=== PATIENT | female | born 1955 | race Caucasian/White ===

== ENCOUNTER → 2018-07-19 | Outpatient (CLI) | payer MEDICARE, OTHER ==
--- NOTE | 2018-07-19 12:42 | US ---
EXAMINATION TYPE: US venous doppler duplex LE LT DATE OF EXAM: 07/19/2018 9:20 AM COMPARISON: LOWER EXTREMITY VENOUS INSUFFICIENCY SIDE PERFORMED: Left TECHNIQUE: Color Doppler and grayscale sonographic images of the left lower extremity were obtained. 1) Color flow is present and patency is documented in the following vessels. No DVT or SVT is noted . EIV Common Femoral Vein Deep Femoral Vein Femoral Vein Popliteal Vein Proximal Calf Veins Greater Saph Vein Upper Small Saph Vein 2) There is venous reflux noted at the following venous levels: None IMPRESSION: No sonographic evidence for venous insufficiency or DVT within the visualized left lower extremity.
== END ==
LOC: RADUSWWP 08:50
PROVIDERS: ATTEND Internal Medicine Infectious Disease
DX: M79.604 Pain in right leg (principal); M79.605 Pain in left leg
CPT/HCPCS: 93923

== ENCOUNTER → 2018-07-19 | Outpatient (CLI) | payer MEDICARE, OTHER ==
--- NOTE | 2018-07-28 09:52 | P.ARTDOP ---
Arterial Doppler LOWER EXTREMITY ARTERIAL DOPPLER: DATE OF SERVICE: 07/19/2018 Reason for study: Nonhealing left great toe ulcer. Doppler waveforms: Multiphasic bilaterally throughout. Pulse volume recording: Normal configuration including digital. Pressure gradients: Only at the foot level. Ankle-brachial indices: Greater than 1 bilaterally. Toe pressures: 46 on the right, not registered on the left Impression: Combining the ABIs and excellent toe plethysmography waveforms feel this is a normal study. Clinical correlation recommended..
== END | disposition home or self-care (01) ==
LOC: RADUSWWP 08:46
PROVIDERS: ATTEND Internal Medicine Infectious Disease
DX: Z53.9 Procedure and treatment not carried out, unspecified reason (principal)

== ENCOUNTER → 2023-11-06 | Outpatient (CLI) | payer MEDICARE ==
--- NOTE | 2023-11-06 09:53 | XR ---
EXAMINATION TYPE: XR chest 2V DATE OF EXAM: 11/06/2023 9:25 AM CLINICAL INDICATION:Female, 67 years old with history of R053 CHRONIC COUGH; COMPARISON: None TECHNIQUE: XR chest 2V Frontal and lateral views of the chest. FINDINGS: Lungs/Pleura: Prominent interstitial lung markings are seen scattered throughout the lungs with yamileth ening of the diaphragm and increased lucency of the lung apices. No evidence of focal consolidation, pneumothorax or pleural effusion. Pulmonary vascularity: Unremarkable. Heart/mediastinum: Cardiomediastinal silhouette is unremarkable. Atherosclerotic calcifications are seen in the aorta. Musculoskeletal: No acute osseous pathology. Fixation hardware in the lower cervical spine appears in tact. Other findings: None IMPRESSION: 1. No acute cardiopulmonary disease process. 2. COPD changes.
== END | disposition home or self-care (01) ==
LOC: RADXRYALE 09:14
PROVIDERS: ATTEND Family Medicine
DX: J44.9 Chronic obstructive pulmonary disease, unspecified (principal)
CPT/HCPCS: 71046

== ENCOUNTER → 2023-11-11 | Outpatient (CLI) | payer MEDICARE ==
[2023-11-11 13:01] LABS: African American GFR (CKD) >90 (>60 ml/min/1.73 sqM); Blood Urea Nitrogen 8 mg/dL (7-17); Non-African American GFR(CKD) >90 (>60 ml/min/1.73 sqM)
--- NOTE | 2023-11-11 14:37 | CT ---
EXAMINATION TYPE: CT chest w con DATE OF EXAM: 11/11/2023 COMPARISON: Chest x-ray 11/06/2023 HISTORY: Cough, abnormal finding of lung CT DLP: 3661 mGycm, Automated exposure control for dose reduction was used. CONTRAST: Performed injected with 100 ml mL of Isovue 300. TECHNIQUE: Axial images were obtained at 5 mm thick sections. Reconstructed images are reviewed on [employer] computer in the coronal plane. FINDINGS: Portion of the thyroid visualized is normal. There is a masslike density in the superior left mediastinal border measuring 7.5 x 3.2 cm. This exte nds from the left hilum to nearly the apex. Small left pleural effusion is present. Small area of pneumonitis is anterior to the pleural effusion near the left lung base. Image 46. Small area of increased densities in the anterior right upper risa g field measuring 0.8 cm. Series 3 image 11. No enlarged mediastinal or hilar adenopathy is evident. The ascending aorta diameter at the level o f the main pulmonary artery is 2.8 cm. The main pulmonary artery diameter at the bifurcation is 2.2 cm. Minimal pericardial effusion is present. Limited CT sections are obtained through the upper abdomen. There is mild fatty infiltration of the l iver. IMPRESSION: 1. Left mediastinal border mass suspicious for neoplasm. PET CT recommended for additional evaluation . 2. There are couple of areas of small pneumonitis type changes in the right lung and left lower lung field. Infectious etiology and neoplasm are not excluded at these locations. Follow-up is recommended . 3. Moderate fatty liver. A Yellow level critical message alert has been initiated for Prosper Lamar DO via the [employer] Critical Results System on 11/11/2023 2:35 PM. This message alert has been sent to Prosper griggs DO via the preferences provided by the clinician for the receipt of Radiology Critical Findings. Message ID [id number].
== END | disposition home or self-care (01) ==
LOC: RADCTMAIN 12:22
PROVIDERS: ATTEND Family Medicine
DX: K76.0 Fatty (change of) liver, not elsewhere classified (principal)
CPT/HCPCS: 82565; 84520; 71260; 36415; Q9967

== ENCOUNTER 2023-12-17 10:08 | Day surgery (SDC) | payer MEDICARE ==
[~2023-12-17 10:08] MED LIST: HYDROmorphone 0.5 MG/0.5 ML SYRINGE IVP PRN; LACTATED RINGERS 1,000 ML IV SCH
[2023-12-17] MEDS: LACTATED RINGERS 1,000 ML IV SCH (10:43)
[2023-12-17] MEDS: DEXAMETHASONE SOD PHOSPHATE 4 MG/ML 1 ML VIAL IV ONE (10:58)
[2023-12-17] MEDS: ONDANSETRON 4 MG/2 ML VIAL IVP ONE (10:59)
[2023-12-17] MEDS ORDERED: PHENYLEPHRINE 10 MG/ML VIAL ONE (11:01)
[2023-12-17] MEDS ORDERED: MIDAZOLAM 2 MG/2 ML VIAL ONE (11:01)
[2023-12-17] MEDS ORDERED: fentaNYL (PF) 50 MCG/ML 2 ML AMP ONE (11:01)
[2023-12-17] MEDS ORDERED: PROPOFOL 10 MG/ML 20 ML VIAL IV ONE (11:01)
[2023-12-17] MEDS ORDERED: NEOSTIGMINE 1 MG/ML 10 ML VIAL ONE (11:01)
[2023-12-17] MEDS ORDERED: LIDOCAINE 1% INJ 10MG/ML (20 ML MDV) ONE (11:01)
--- NOTE | 2023-12-17 11:17 | CT ---
EXAMINATION TYPE: CT chest wo con DATE OF EXAM: 12/17/2023 COMPARISON: PET CT scan 12/10/2023. HISTORY: Prebronchial navigation. CT DLP: 190.3 mGycm. Automated Exposure Control for Dose Reduction was Utilized. TECHNIQUE: CT scan of the thorax is performed without IV contrast. FINDINGS: LUNGS: There is a moderate left pleural effusion. Small pericardial effusion. Large left upper lobe m ass and abutting the mediastinum occluding the left upper lobe bronchus and likely extending along th e left lower lobe bronchus is unchanged. This is compatible with malignancy as was seen on the PET/CT examination for comparison. Scattered interstitial changes otherwise seen through out the lungs bila terally likely chronic. Some inflammatory infectious process may also be a consideration. There is so me soft tissue density seen within the left suprahilar region in the left upper lobe which also could represent malignancy and appears slightly hypermetabolic on the PET/CT examination. MEDIASTINUM: Several prominent mediastinal lymph nodes are suspected, however not well evaluated with out contrast. Slight hypermetabolic activity is seen within the hilar regions and subcarinal region.. OTHER: Masses within the liver compatible with metastatic disease and not well evaluated on this nonc ontrast examination. IMPRESSION: 1. Large left upper lobe mass occluding the left upper lobe bronchus compatible with malignancy as de scribed above. 2. Metastatic liver disease. 3. Additional findings as above. Follow-up recommendations for incidental pulmonary nodules are per [facility] or [employer].
--- NOTE | 2023-12-17 12:20 | FL ---
EXAMINATION TYPE: FL bronchoscopy DATE OF EXAM: 12/17/2023 COMPARISON: NONE HISTORY: ABN LUNG FINDINGS BRONCH ION TECHNIQUE: Fluoroscopy. FINDINGS: 2 MIN 13 SEC FL 5.2197 dap dose IMPRESSION: As Above.
--- NOTE | 2023-12-17 12:37 | P.PCN ---
Date of Procedure: 12/17/23 Operative Findings: Preoperative Diagnosis: Left upper lobe mass Right upper lobe pulmonary nodule Mediastinal lymphadenopathy Postoperative Diagnosis: Left upper lobe Mass along with significant narrowing of the apical segment of the left upper lobe. Right upper lobe pulmonary nodule Mediastinal lymphadenopathy, involving the subcarinal and left hilar Procedure(s) Performed: Flexible bronchoscopy Robotic-assisted bronchoscopy and addition to radial ultrasound evaluation of the pulmonary left upper lobe mass and a right upper lobe pulmonary nodule Robotic-assisted transbronchial biopsies, transbronchial brushing of left upper lobe mass in addition to a bronchioloalveolar lavage Robotic-assisted transbronchial biopsies, transbronchial brushing of right upper lobe mass in addition to a bronchioloalveolar lavage EBUS/endobronchial ultrasound EBUS guided biopsies of station 7 and station 10 L lymph nodes. Anesthesia: DAJAA Surgeon: Link Mcgregor Estimated Blood Loss (ml): 0 Pathology: other Condition: stable Disposition: same day Operative Findings: A physical exam was performed. Informed consent was obtained from the patient after explaining all the risks (pneumothorax, life threatening bleeding, infection and adverse effects due to medications), benefits and alternatives to the procedure which the patient appeared to understand and so stated. The patient was connected to the monitoring devices. General anesthesia was induced and the patient was intubated by anesthesia. A final timeout was performed and the procedure confirmed by the attending staff bronchoscopist. The bronchoscope was inserted and the airway examined. The trachea was within normal limits. Clara was sharp. Examination of the right setting of the right upper lobe bronchus, bronchus intermedius, right middle lobe and right lower lobe bronchus and the various 10 segments on the right and one of the obstruction within normal limits. Examination of the left side showed a normal proximal left mainstem bronchus. The distal left mainstem bronchus had inflammatory mucosa and this got progressively worse as the left mainstem bronchus divided into the left upper lobe and left lobe bronchus. The mucosa at the location was quite inflamed and erythematous and swollen. There was narrowing of the left upper lobe bronchus. Lingular segment was identified and it was patent. The apical posterior segment was completely narrowed continue segment was significantly narrowed. There was evidence of extrinsic compression from the some endobronchial involvement in the left upper lobe apical posterior segment. The flexible bronchoscope was removed and the robotic bronchoscope was inserted. Registration was completed. I next guided the robotic bronchoscope using the navigation system into the left upper lobe apico- posterior segment. Once in proper position, the bronchoscope was frozen. The radial EBUS probe was placed through the bronchoscope and confirmed abnormal u/s images vs normal lung. Bone removed U/S evaluation was then used to reconfirm location. Forceps were next introduced through working channel and extended the appropriate distance and 3 transbronchial biopsies were performed using fluoroscopic guidance. The u/s probe was then reinserted to confirm location. When confirmed this process was repeated for a total of 6 transbronchial biopsies. After reassessment with EBUS, a brush was placed through the extendable working channel for 1 pass with fluoroscopic guidance. U/S evaluation was then used to confirm location. 40ml of saline was then instilled into the area of the lesion. The robotic bron choscope was removed and the airway inspected with a flexible bronchoscope and 5 ml of effluent from the BAL was collected. The aspirate was bloody and ultimately declotted and based on that, the sample was discarded. The robotic bronchoscope was the right upper lobe apical segment. Once in proper position, the bronchoscope was frozen. The radial EBUS probe was placed through the bronchoscope and confirmed abnormal u/s images vs normal lung. U/S evaluation was then used to reconfirm location. Forceps were next introduced through working channel and extended the appropriate distance and 3 transbronchial biopsies were performed using fluoroscopic guidance. The u/s probe was then reinserted to confirm location. When confirmed this process was repeated for a total of 6-8 transbronchial biopsies. After reassessment with EBUS, a brush was placed through the extendable working channel for 1 pass with fluoroscopic guidance. U/S evaluation was then used to confirm location. 40ml of saline was then instilled into the area of the lesion. The robotic bronchoscope was removed and the airway inspected with a flexible bronchoscope and 10 ml of effluent from the BAL was collected. The aspirate was bloody and ultimately declotted and based on that, the sample was discarded. Fluoroscopic check for pneumothorax was negative upon completion of the procedure. There was 0 ml blood loss with the procedure. Subsequent to that, the endobronchial ultrasound was inserted and the mediastinal lymph node evaluation was done. A large subcarinal station 7 lymph node was identified measuring approximately 15 x 11 mm in size. Another 1.3 x11 mm of station 10 L lymph node was also identified. 4 lymph nodes were also identified in the left paratracheal lymph node station 4R measuring around 7 to 8 mm in size. Using a 22 guage V[place] , transbronchial needle aspirates of the subcarinal and station 10 L lymph node was done without any complications. Total of 3 passes were obtained from each station. FINDINGS: 1.The airways appeared normal 2 Successful navigation, ultrasonographic identification, and biopsies of right lower lobe mass in the left upper lobe mass 3.The the radial ultrasound view was Eccentric 3 successful transbronchial needle aspirate of subcarinal and station 10 L lymph node RECOMMENDATIONS: Await pathology and cytology results The referring physician will be alerted to the results when available. The patient was advised to follow up with the referring physician with the biopsy results
[2023-12-17] MEDS: ALBUTEROL NEBULIZED 2.5 MG/3 ML INHALATION ONE (12:39)
[2023-12-17 12:53] VITALS: TEMP 97.2
--- NOTE | 2023-12-17 13:15 | XR ---
EXAMINATION TYPE: XR chest 1V DATE OF EXAM: 12/17/2023 HISTORY: Status post biopsy COMPARISON: None. TECHNIQUE: Single view of the chest is submitted. FINDINGS: Demonstrated are scattered senescent parenchymal change. Left upper lobe mass density. Left basilar pleural effusion with atelectasis. Underlying mass is not excluded. No evidence of pneumothorax status post biopsy. The heart is stable. Hilar and mediastinal structures are within normal limits. Degenerative changes are seen of the dorsal spine. IMPRESSION: 1. Left upper lobe mass density. Left basilar pleural effusion with atelectasis. Underlying mass is not excluded. No evidence of pneumothorax status post biopsy.
[2023-12-17] MEDS: NITROGLYCERIN SL TABS 0.4 MG TAB SUBLINGUAL ONE (14:15)
[2023-12-17 15:14] VITALS: BP 107/64; PULSE 109; RESP 20
== END 2023-12-17 15:31 | disposition home or self-care (01) ==
LOC: ORWHC2ENDO 10:08
PROVIDERS: ATTEND Internal Medicine Critical Care Medicine
DX: C34.12 Malignant neoplasm of upper lobe, left bronchus or lung (principal); J90 Pleural effusion, not elsewhere classified; C78.7 Secondary malignant neoplasm of liver and intrahepatic bile duct; Z98.890 Other specified postprocedural states
CPT/HCPCS: 71045; 71250; 31628; 31623; 31624; 31652; J2250; J1100; J2710; J2405; J2001; J3010; J2704; J2371; S2900; 88305; 88341; 88342

== ENCOUNTER → 2024-01-06 | Outpatient (CLI) | payer MEDICARE ==
--- NOTE | 2024-01-10 16:32 | MR ---
EXAMINATION TYPE: MR brain wo/w con DATE OF EXAM: 01/06/2024 COMPARISON: None HISTORY: Lung cancer CONTRAST: Performed utilizing 5 mL intravenous Gadavist gadolinium contrast. TECHNIQUE: Multiplanar, multiecho imaging on a 3.0 Nicole magnet is performed through the brain. Stud y is performed within 24 hours of arrival to the hospital. The craniovertebral junction is normal. The pituitary is normal. Optic chiasm is visualized is norm al. Diffusion-weighted imaging is performed. No abnormal hyperintensity is present to suggest an acute i ntracranial infarct or acute ischemic change. There is a punctate hyperintensity in the right frontal lobe subcortical white matter, series 601 taran ge 39. Couple of punctate hyperintensities are in the left frontal lobe subcortical white matter, ser ies 601 images 43-44 Ventricles and sulci are appropriate for the patient age. Following contrast no suspicious enhancement is evident. IMPRESSION: 1. Mild scattered punctate white matter changes are nonspecific but can be related to microvascular i schemic change. Differential diagnosis would include migraine headaches and vasculitis
== END | disposition home or self-care (01) ==
LOC: RADMRIMAIN 21:45
PROVIDERS: ATTEND Internal Medicine Hematology & Oncology
DX: C34.82 Malignant neoplasm of overlapping sites of left bronchus and lung (principal); I67.82 Cerebral ischemia; R90.82 White matter disease, unspecified
CPT/HCPCS: 70553; A9585

== ENCOUNTER 2024-03-09 16:48 | Inpatient (IN) | payer MEDICARE ==
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
[2024-03-09] MEDS: SODIUM CHLORIDE 0.9% 1,000 ML IV STA (17:46)
[2024-03-09 17:53] LABS: Basophils # (A) 0.1 k/uL (0-0.2); Basophils % (A) 1 %; Eosinophils # (A) 0.1 k/uL (0-0.7); Eosinophils % (A) 1 %; HCT 43.4 % (34.0-46.0); HGB 14.5 gm/dL (11.4-16.0); Lymphocytes # (A) 1.6 k/uL (1.0-4.8); Lymphocytes % (A) 22 %; MCH 29.7 pg (25.0-35.0); MCHC 33.5 g/dL (31.0-37.0); MCV 88.7 fL (80.0-100.0); Mean Platelet Volume 7.7; Monocytes # (A) 0.1 k/uL (0-1.0); Monocytes % (A) 1 %; Neutrophils # (A) 5.2 k/uL (1.3-7.7); Neutrophils % (A) 74 %; Platelet Count 195 k/uL (150-450); RBC 4.89 m/uL (3.80-5.40); RDW 13.4 % (11.5-15.5)
[2024-03-09 18:11] LABS: ALT 19 U/L (4-34); AST 26 U/L (14-36); African American GFR (CKD) >90 (>60 ml/min/1.73 sqM); Albumin 3.7 g/dL (3.5-5.0); Alkaline Phosphatase 68 U/L (38-126); Anion Gap 6 mmol/L; Blood Urea Nitrogen 18 mg/dL (7-17); Calcium 8.9 mg/dL (8.4-10.2); Carbon Dioxide 25 mmol/L (22-30); Chloride 103 mmol/L (98-107); Glucose 89 mg/dL (74-99); Magnesium 1.7 mg/dL (1.6-2.3); Non-African American GFR(CKD) >90 (>60 ml/min/1.73 sqM); Phosphorus 3.3 mg/dL (2.5-4.5); Potassium 4.2 mmol/L (3.5-5.1); Sodium 134 mmol/L (137-145); Total Bilirubin 0.8 mg/dL (0.2-1.3); Total Protein 6.5 g/dL (6.3-8.2)
[2024-03-09 18:13] LABS: Prothrombin Time 10.5 sec (10.0-12.5)
[2024-03-09 18:14] LABS: Partial Thromboplastin Time 21.6 sec (22.0-30.0)
[2024-03-09 18:20] LABS: NT-Pro-B-Type Natriuretic Pept 43 pg/mL
--- NOTE | 2024-03-09 20:29 | CT ---
EXAMINATION TYPE: CT angio chest CT DLP: 238.2 mGycm, Automated exposure control for dose reduction was used. DATE OF EXAM: 03/09/2024 7:02 PM COMPARISON: CT chest without 12/17/2023. Reference PET/CT 12/10/2023 CLINICAL INDICATION:Female, 68 years old with history of sob; SOB, high dimer. Lung Ca. TECHNIQUE/CONTRAST: CTA scan of the thorax is performed with IV Contrast, patient injected with 80 mL of Isovue 370, MIP images are created and reviewed these are created on a separate workstation.. FINDINGS: There is adequate contrast bolus and timing. PULMONARY ARTERIES: Pulmonary trunk, right main pulmonary artery and its distal branches enhance norm ally without evidence of filling defect to indicate embolus. The pulmonary trunk is not enlarged, gail suring about 2 cm diameter. The left upper lobe artery and segmental branches in the left hilum appea r significantly extrinsically narrowed by the left hilar/suprahilar region mass. Some areas of small peripheral conclusions are suggested. No intrinsic defects are seen to suggest embolus. Left lower lobe artery is patent with mild narrowing of branch vessels. No intrinsic defects are seen to suggest embolus. The left superior pulmonary vein appears quite narrowed in the left inferior hil ar region as well. AORTA : Normal course and caliber, with mild to moderate mixed atherosclerotic disease throughout the thoracic aorta noted. No gross evidence of thoracic aneurysm or dissection. The branch vessels from the arch show mild disease without critical stenosis seen. Ascending aorta is 2.6 CM, descending is 2 CM. HEART: Normal heart size. Small pericardial effusion, similar to previous. LOWER NECK: No significant findings. Thyroid appears grossly stable. MEDIASTINUM: Slightly increased bulk of confluent mediastinal soft tissue densities, without definite measurable lymph nodes, likely represents metastases.. Contiguous soft tissue densities within the l eft hilar and suprahilar region also appear mildly increased from prior. SOFT TISSUES/AXILLA: Unremarkable chest wall soft tissues. No axillary adenopathy. LUNGS/ PLEURA: Relatively increased small to moderate left pleural effusion with underlying rind of s oft tissue tissue density surrounding the majority of the left lung, as well as increased interstitia l and alveolar opacities in the aerated left lung. On the right, there is redemonstration of extensiv e patchy reticulonodular and ground glass opacities through the lung, overall stable to slightly incr eased from before. Some peribronchial vascular soft tissue thickening/nodularity in the right upper l obe region around image 45 appears stable to slightly increased from prior. There remains no sizable pleural effusion on the right, or pneumothorax bilaterally. Mildly thickened appearance of the right hilar soft tissue is again noted without measurable mass. AIRWAY: Trachea and right-sided bronchi remain patent. Left proximal mainstem bronchus is patent, but there is significant relatively increased luminal narrowing versus the prior exam, with complete occ lusion of the left upper lobe bronchus proximally and significant narrowing of the proximal left lowe r lobe bronchus seen. MUSCULOSKELETAL: Mild/moderate diffuse degenerative changes throughout the thoracic spine, partially seen anterior and posterior fusion hardware in the cervical spine, partially seen posterior fusion daly rdware in the lower lumbar region. No definitive acute bony abnormality or destructive lesion. UPPER ABDOMEN: Visualized upper abdomen shows diffuse thickening of the adrenals without evidence of focal mass. Moderate mixed atherosclerotic disease of the aorta with mild narrowing of the mesenteric and renal arterial branches. Irregular mostly soft plaque is seen in the aorta below the level of th e renal arteries without evidence of dissection. Splenic granulomas. The contrast phase is suboptimal, however there appears to be slightly increased size and prominence of several vague hypodense hepatic lesions, highly concerning for metastases. Color appears mildly pr ominent. IMPRESSION: 1. No evidence of pulmonary embolism. 2. Left upper lobe artery and segmental branches in the left hilum appear significantly extrinsicall y narrowed by the left hilar/suprahilar region mass. Some areas of small peripheral conclusions are s uggested. No intrinsic defects are seen to suggest embolus. 3. Left lower lobe artery is patent with mild narrowing of branch vessels. No intrinsic defects are seen to suggest embolus. The left superior pulmonary vein appears quite narrowed in the left inferior hilar region as well. 4. Thoracic aorta is normal in course and caliber, with mild to moderate mixed atherosclerotic disea se throughout. No gross evidence of thoracic aortic aneurysm or dissection. 5. Normal heart size. Small pericardial effusion, similar to previous. Coronary artery calcification s. 6. Slightly increased bulk of confluent mediastinal soft tissue densities, without definite measurab le lymph nodes, likely represents worsening metastatic disease. 7. Contiguous soft tissue densities within the left hilar and suprahilar region also appear mildly i ncreased from prior, concerning for progression of malignancy. 8. Relatively increased small to moderate left pleural effusion with underlying rind of soft tissue tissue density surrounding the majority of the left lung, as well as increased interstitial and alveo lar opacities in the aerated left lung. Findings likely relate to progression of malignancy, with sup erimposed infection or edema possibilities. 9. Right lung again shows extensive patchy reticulonodular and ground glass opacities throughout, ov erall stable to slightly increased from before. Some peribronchial vascular soft tissue thickening/no dularity in the right upper lobe region appears stable to slightly increased from prior. Findings sug gest progression of malignancy/metastatic disease, with superimposed infection/inflammation possible. There remains no sizable pleural effusion on the right, or pneumothorax bilaterally. 10. Mildly thickened appearance of the right hilar soft tissues is again noted without measurable ma ss, nonspecific. 11. Trachea and right-sided bronchi remain patent. Left proximal mainstem bronchus is patent, but th ere is significant relatively increased luminal narrowing versus the prior exam, with complete occlus ion of the left upper lobe bronchus proximally and significant narrowing of the proximal left lower l obe bronchus. 12. Diffuse thickening of the adrenals without evidence of focal mass. Continued follow-up advised 13. The contrast phase is suboptimal, however there appears to be slightly increased size and promin ence of several vague hypodense hepatic lesions, highly concerning for progressive hepatic metastases .
[2024-03-09] MEDS: IPRATROPIUM-ALBUTEROL 3 ML NEB INHALATION STA ×2 (20:39→22:04)
[2024-03-09] MEDS ORDERED: NALOXONE 0.4 MG/ML 1 ML VIAL IV PRN (20:54)
[2024-03-09] MEDS ORDERED: NALOXONE 0.4 MG/ML 1 ML VIAL IVP PRN (20:54)
[2024-03-09] MEDS ORDERED: ONDANSETRON 4 MG/2 ML VIAL IVP PRN (20:54)
[2024-03-09] MEDS: SODIUM CHLORIDE 0.9% 1,000 ML IV SCH (21:09)
[2024-03-09] MEDS: methylPREDNISolone SOD SUCCI 125 MG/2 ML VIAL IV STA (21:10)
[2024-03-09] MEDS: MORPHINE SULFATE 4 MG/ML SYRINGE IV PRN (22:43)
[2024-03-10] MEDS ORDERED: ALBUTEROL NEBULIZED 2.5 MG/3 ML INHALATION SCH
[2024-03-10] MEDS: methylPREDNISolone SOD SUCCI 125 MG/2 ML VIAL IV SCH (01:05)
[2024-03-10] MEDS: MELATONIN 5 MG TABLET PO SCH (01:05)
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
[2024-03-10] MEDS: MORPHINE SULFATE 4 MG/ML SYRINGE IV PRN (01:27)
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
[2024-03-10 06:43] LABS: Basophils % (A) 0 %; Eosinophils % (A) 0 %; Lymphocytes # (A) 0.5 k/uL (1.0-4.8); Lymphocytes % (A) 13 %; MCHC 31.8 g/dL (31.0-37.0); MCV 91.1 fL (80.0-100.0); Mean Platelet Volume 7.2; Monocytes # (A) 0.1 k/uL (0-1.0); Monocytes % (A) 1 %; Neutrophils # (A) 3.3 k/uL (1.3-7.7); Neutrophils % (A) 85 %; Platelet Count 120 k/uL (150-450); RBC 4.83 m/uL (3.80-5.40); RDW 13.6 % (11.5-15.5); WBC 3.9 k/uL (3.8-10.6)
[2024-03-10 06:55] LABS: ALT 20 U/L (4-34); AST 25 U/L (14-36); African American GFR (CKD) >90 (>60 ml/min/1.73 sqM); Albumin 3.8 g/dL (3.5-5.0); Alkaline Phosphatase 78 U/L (38-126); Anion Gap 10 mmol/L; Blood Urea Nitrogen 14 mg/dL (7-17); Calcium 8.9 mg/dL (8.4-10.2); Carbon Dioxide 22 mmol/L (22-30); Chloride 102 mmol/L (98-107); Glucose 162 mg/dL (74-99); Lipase 131 U/L (23-300); Magnesium 1.7 mg/dL (1.6-2.3); Non-African American GFR(CKD) >90 (>60 ml/min/1.73 sqM); Phosphorus 4.1 mg/dL (2.5-4.5); Potassium 4.4 mmol/L (3.5-5.1); Sodium 134 mmol/L (137-145); Total Bilirubin 0.6 mg/dL (0.2-1.3); Total Protein 6.6 g/dL (6.3-8.2)
[2024-03-10] MEDS ORDERED: SYMBICORT 80-4.5 MCG INHALER INHALATION SCH (08:00)
[2024-03-10] MEDS: HEPARIN SODIUM,PORCINE 5,000 UNIT/ML 1 ML VIAL SQ SCH (09:13)
[2024-03-10] MEDS: IPRATROPIUM-ALBUTEROL 3 ML NEB INHALATION SCH (09:19)
[2024-03-10] MEDS: SYMBICORT 160-4.5 MCG INHALER INHALATION SCH (09:19)
--- NOTE | 2024-03-10 09:51 | XR ---
EXAMINATION TYPE: XR chest 1V portable DATE OF EXAM: 03/10/2024 Comparison: 12/17/2023 Clinical History: 68-year-old female Post left thoracentesis Findings: Near complete white out of the left hemithorax persists with some faintly aerated left mid and lower lung noted. Interstitial densities right lung are unchanged. Partially visualized ACDF and posterior cervical fusion hardware. The left heart margin is entirely obscured by adjacent pleural parenchymal opacity. Chronic appearing interstitial changes on the right. Partially visualized posterior lumbar f usion hardware. Impression: 1. Extensive pleural-parenchymal opacities remain throughout the left lung causing near complete whit eout. Faintly aerated left upper and midlung noted. No appreciable pneumothorax. 2. Chronic appearing interstitial changes on the right.
[2024-03-10 13:09] VITALS: BMI 18.2
[2024-03-10] MEDS ORDERED: HYDROcodone/APAP 10-325MG 1 EACH TAB PO PRN (13:25)
--- NOTE | 2024-03-10 13:37 | P.PN ---
Subjective Progress Note Date: 03/10/24 Hospital course Patient is a 68-year-old female with a past medical history of metastatic lung cancer who went to go visit her doctor and had a severe attack of coughing and became short of breath. In the office she was found to be hypoxic so she was told to go to the ED. Patient uses home oxygen but does not have a portable oxygen so she would take a hand-held battery-operated fan with her when she leaves her house to help her with the breathing. Patient also complaining of pain in her neck, chest and rib on the left side. Patient states that she is on [place] 10 mg every 4 hours as needed and this is not helping with her pain. Patient was last chemotherapy was 1 week ago. Patient states that she has been feeling weak and dizzy especially when she stands up she gets short of breath. She states that she quit smoking when she was diagnosed with lung cancer in October 2023. In the ED patient had a CTA chest that showed progression of her lung cancer and also moderate size left pleural effusion. Patient was admitted to the medicine service. Patient was seen by pulmonology and had thoracentesis with 700 cc removal of the left pleural effusion. Patient reported improvement in her breathing after the procedure. Patient started on fentanyl 25 mcg every 72 hours for her pain. Patient seen today. She is complaining that her pain is uncontrolled. I told the patient was started on a fentanyl patch. Physical exam General examination - Alert and Oriented 3 in NAD Heart - + S1S2 no murmurs Lungs -crackles in the left lung, no wheezing Abdomen soft NT ND +ve BS Extremities - No edema LENS GRINDER - Moving all 4 extremities spontaneously Psych - Calm and cooperative Assessment and plan Acute on chronic hypoxic respiratory failure Moderate left-sided pleural effusion status postthoracentesis on 03/10/2024 COPD exacerbation Patient is on 5 L oxygen at home. Currently satting well on her home O2. I reviewed the chest x-ray image after the thoracentesis that showed left-sided whiteout. I discussed this with the cat swamper who said that this is likely from fluid. Patient is feeling better after thoracentesis so no further treatment at this time. Will continue with IV Solu-Medrol 60 mg every 6 hours Continue DuoNeb as needed Ice discussed with the bilingual case manager who is arranging for a portable oxygen tank. I signed the prescription. Procalcitonin is 0.17 which is only minimally elevated so doubt pneumonia especially since patient does not have leukocytosis or fever. WBC this morning is 3.9. D-dimer is elevated 1.88. I reviewed CTA chest that is negative for pulmonary embolism Acute on chronic chest pain secondary to malignancy Patient on morphine 4 mg IV every 3 hours as needed for pain control Patient also started on her home dose [place] 10 mg every 4 hours as needed Patient's pain is still uncontrolled I started the patient on fentanyl patch 25 mcg daily Oncology consult Lung cancer with metastasis CTA chest showing progression of her lung cancer Oncology consult DVT prophylaxis: Subcu heparin Objective - Vital Signs Vital signs: Vital Signs Temp 97.5 F L 03/10/24 07:00 Pulse 89 03/10/24 12:10 Resp 18 03/10/24 08:00 BP 141/79 03/10/24 07:00 Pulse Ox 97 03/10/24 09:23 FiO2 Intake & Output 03/09/24 03/10/24 03/10/24 18:59 06:59 18:59 Intake Total 118 Balance 118 Weight 46.72 kg 46.72 kg 46.72 kg Intake: Oral 118 Other: Voiding Method Toilet # Voids 1 - Labs CBC & Chem 7: 03/10/24 06:06 03/10/24 06:06 Labs: Abnormal Lab Results - Last 24 Hours (Table) 03/09/24 03/09/24 03/10/24 Range/Units 17:19 17:19 06:06 Plt Count 120 L (150-450) k/uL Lymphocytes # 0.5 L (1.0-4.8) k/uL APTT 21.6 L (22.0-30.0) sec D-Dimer 1.88 H (<0.60) mg/L FEU Sodium 134 L (137-145) mmol/L BUN 18 H (7-17) mg/dL Creatinine 0.41 L (0.52-1.04) mg/dL Glucose (74-99) mg/dL Procalcitonin (0.02-0.09) ng/mL 03/10/24 03/10/24 Range/Units 06:06 06:06 Plt Count (150-450) k/uL Lymphocytes # (1.0-4.8) k/uL APTT (22.0-30.0) sec D-Dimer (<0.60) mg/L FEU Sodium 134 L (137-145) mmol/L BUN (7-17) mg/dL Creatinine 0.39 L (0.52-1.04) mg/dL Glucose 162 H (74-99) mg/dL Procalcitonin 0.17 H (0.02-0.09) ng/mL
--- NOTE | 2024-03-10 13:40 | OP ---
OPERATIVE REPORT DATE OF SERVICE : PROCEDURE PERFORMED: Left-sided thoracentesis. PREOPERATIVE DIAGNOSIS: Pleural effusion associated with lung CA. POSTOPERATIVE DIAGNOSIS: Pleural effusion associated with lung CA. ANESTHESIA USED: 2 mL of 1% lidocaine. DESCRIPTION OF PROCEDURE: The area of the fluid was earlier localized by ultrasound, and it correlated to the 8th intercostal space and tip of the scapula. The patient was placed in the sitting upright position, the area below the left scapula was prepared in a sterile fashion, drapes were applied. Then, at the site of the marking, the area was locally anesthetized. Then a small tiny incision was made and a standard thoracentesis catheter and needle were used advanced into the pleural space and the fluid was obtained. Then, the catheter was advanced over the needle and the needle was pulled out of the pleural space. Freely flowing fluid was removed, roughly 750 cc of clear fluid was removed from the pleural space, and the patient started having significant cough during the procedure, hence no more fluid was drained and a total of 750 cc were drained. The fluid was sent for different diagnostic studies, the procedure was well tolerated, no complications noted postoperatively and no evidence of pneumothorax. MMODL / IJN: [id number] /
--- NOTE | 2024-03-10 16:31 | US ---
EXAMINATION TYPE: US chest DATE OF EXAM: 03/10/2024 COMPARISON: CT 03/09/2024 XR 01/06/2024 CLINICAL INDICATION: Female, 68 years old shortness of breath with history of Markings for thoracente sis by pulmonary staff; JOSE RAFAEL TECHNIQUE: Targeted ultrasound of the posterior lower bilateral hemithoraces EXAM MEASUREMENTS: Right Pleural Effusion pocket size: 0 cm Right skin surface to fluid distance: 0 cm Left Pleural Effusion pocket size: 4.9 cm Left skin surface to fluid distance: 2.5 cm Left side marked for possible thoracentesis outside the dept. Pulmonologists are able to review the images in the patient?s EMR. IMPRESSIONS: Moderate effusion on the left.
[2024-03-10] MEDS: BENZONATATE 100 MG CAP PO PRN (21:16)
[2024-03-10 21:37] LABS: Appearance,BF Clear (Clear)
[2024-03-10 22:46] LABS: Glucose, BF Source Pleural Fluid; Glucose, Body Fluid 162 mg/dL; LDH, Body Fluid Source Pleural Fluid; T. Protein, Body Fluid Source Pleural Fluid; Total Protein, Body Fluid >3600 mg/dL
[2024-03-11 07:59] VITALS: BP 136/71; RESP 20; TEMP 97.9
--- NOTE | 2024-03-11 08:56 | XR ---
EXAMINATION TYPE: XR chest 1V portable DATE OF EXAM: 03/11/2024 COMPARISON: 03/10/2024 INDICATION: Pleural effusion TECHNIQUE: Single frontal view of the chest is obtained. FINDINGS: The heart size is normal. The pulmonary vasculature is somewhat prominent. Moderate pleural effusion is present. There is opacity over the left lung with mild increased lung ma rkings on the right lung base. Correlate for atelectasis, pneumonia, and pulmonary edema. IMPRESSION: 1. Diffuse left lung opacity with mild increased lung markings right lung base. Moderate left pleural effusion
--- NOTE | 2024-03-11 09:54 | P.DS ---
Providers Date of admission: 03/09/24 20:57 Attending physician: Tyra Epperson MD Consults: 03/09/24 20:54 Consult Physician Routine Consulting Provider: Abdulkadir Kathleen Consult Reason/Comments: copd Do you want consulting provider notified?: Yes Consult Physician Routine Consulting Provider: Renan Boyd Consult Reason/Comments: known Do you want consulting provider notified?: Yes Primary care physician: [facility] Hospital Course: Discharge Diagnosis: Acute on chronic hypoxic respiratory failure Moderate left-sided pleural effusion status post thoracentesis on 03/10/2024 COPD exacerbation Acute on chronic chest pain secondary to malignancy Lung cancer with metastasis Hospital Course: Patient is a 68-year-old female with a past medical history of metastatic lung cancer who went to go visit her doctor and had a severe attack of coughing and became short of breath. In the office she was found to be hypoxic so she was told to go to the ED. Patient uses home oxygen but does not have a portable oxygen so she would take a hand-held battery-operated fan with her when she leaves her house to help her with the breathing. Patient also complaining of pain in her neck, chest and rib on the left side. Patient states that she is on Bristol 10 mg every 4 hours as needed and this is not helping with her pain. Patient was last chemotherapy was 1 week ago. Patient states that she has been feeling weak and dizzy especially when she stands up she gets short of breath. She states that she quit smoking when she was diagnosed with lung cancer in October 2023. In the ED patient had a CTA chest that showed progression of her lung cancer and also moderate size left pleural effusion. Patient was admitted to the medicine service. Patient was seen by pulmonology and had thoracentesis with 700 cc removal of the left pleural effusion. Patient reported improvement in her breathing after the procedure. Patient started on fentanyl 25 mcg every 72 hours for her pain. Patient's pain was tolerable. She was instructed to follow-up with hematology or PCP for pain management. Patient on the day of discharge was seen by pulmonology who recommended to follow-up outpatient and if the cytology from the thoracentesis is positive for malignancy we will set her up with Pleurx catheter. On the day of discharge patient chest x-ray did show diffuse left lung opacity with mild increase lung markings on the right lung base. Also seen was moderate left pleural effusion. I discussed with pulmonology who had cleared the patient for discharge. Patient and family also amenable to palliative care. I discussed with insurance case manager who will set up palliative care as well as four-wheel walker. Patient's prognosis is guarded Patient seen and examined at bedside on 03/11/2024.[] Vital signs reviewed and stable. General examination - Alert and Oriented 3 in NAD Heart - + S1S2 no murmurs Lungs -crackles in the left lung, no wheezing Abdomen soft NT ND +ve BS Extremities - No edema HEALTH [employer]ATE - Moving all 4 extremities spontaneously Psych - Calm and cooperative A total of [40] minutes of time were spent preparing this complex discharge flores mmary . Patient Condition at Discharge: Poor Plan - Discharge Summary New Discharge Prescriptions: New predniSONE 50 mg PO DAILY 4 Days #4 tablet Budesonide-Formot 160-4.5 Mcg [Symbicort 160-4.5 Mcg Inhaler] 2 puff INHALATION RT-BID 30 Days #30 each fentaNYL 25MCG/HR PATCH [Duragesic 25MCG/HR] 1 patch TRANSDERM Q72H patch Continue HYDROcodone/APAP 10-325MG [Bristol 10-325] 1 tab PO Q4HR PRN PRN Reason: Pain Control Fluticasone/Umeclidin/Vilanter [Trelegy Ellipta 100-62.5-25] 1 puff IN HALATION RT-DAILY Ondansetron [Zofran] 4 mg PO Q4H PRN PRN Reason: Nausea Folic Acid 1 mg PO DAILY Benzonatate [Tessalon Perles] 100 mg PO TID PRN PRN Reason: Cough Pembrolizumab [Keytruda] 200 mg IV Q21D Discharge Medication List HYDROcodone/APAP 10-325MG [Bristol 10-325] 1 tab PO Q4HR PRN 07/12/18 [History] Fluticasone/Umeclidin/Vilanter [Trelegy Ellipta 100-62.5-25] 1 puff INHALATION RT-DAILY 12/15/23 [History] Benzonatate [Tessalon Perles] 100 mg PO TID PRN 03/09/24 [History] Folic Acid 1 mg PO DAILY 03/09/24 [History] Ondansetron [Zofran] 4 mg PO Q4H PRN 03/09/24 [History] Pembrolizumab [Keytruda] 200 mg IV Q21D 03/09/24 [History] Budesonide-Formot 160-4.5 Mcg [Symbicort 160-4.5 Mcg Inhaler] 2 puff INHALATION RT-BID 30 Days #30 each 03/11/24 [Rx] fentaNYL 25MCG/HR PATCH [Duragesic 25MCG/HR] 1 patch TRANSDERM Q72H patch 03/11/24 [Rx] predniSONE 50 mg PO DAILY 4 Days #4 tablet 03/11/24 [Rx] Follow up Appointment(s)/Referral(s): [facility] [NON-[facility]] - 1-2 Days ([facility] will call you to schedule your in home nursing, physical therapy, occupational therapy, and palliative care visits. ) Prosper Lamar DO [Primary Care Provider] - 1-2 days Link Mcgregor MD [STAFF PHYSICIAN] - 1 Week Discharge Disposition: HOME SELF-CARE
[2024-03-11 11:30] VITALS: PULSE 92
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
--- NOTE | 2024-03-11 14:59 | P.PN ---
Subjective Progress Note Date: 03/11/24 Patient is a 68-year-old white female with past medical history significant for COPD, previous tobacco dependence, and recent diagnosis of metastatic non-small cell lung cancer. Her primary care provider is Dr. Prosper Lamar. In October, she was having issues with a chronic cough. She was a chronic smoker and has a component of moderate COPD. She had a follow-up chest CT with some abnormal findings, a left perihilar mass measuring 7.5 x 3.2 cm. Follow-up PET scan was compatible with primary left upper lung malignancy with metastatic disease to the contralateral lung, the mediastinum, left neck, left pleural with associated malignant effusion, and within the liver. Dr. Mcgregor did perform a navigational robotic bronchoscopy on 12/17/2023. The biopsy of the left upper lobe mass was consistent with non-small cell lung cancer, pulmonary adenocarcinoma. As well as, the right upper lobe pulmonary nodule, also consistent with adenocarcinoma. Endobronchial ultrasound biopsy of the subcarin al station 7 lymph node was positive for non-small cell lung cancer. She is now established with oncology, her oncologist is Dr. Boyd. She was started on a combination of carboplatin/Alimta/Keytruda. Last reported treatment was on Thursday. She did follow-up with Dr. Boyd yesterday, she was noted to be in some respiratory distress and felt lightheaded. Denies losing consciousness. She has been wearing 5 L/min nasal cannula while at home. She did not wear any oxygen on her drive to her appointment, and lives quite far away from the office. It was recommended that she come to the emergency department for evaluation. Her D-dimer is elevated on arrival at 1.88. Follow-up chest CT angio protocol did not demonstrate any pulmonary emboli. There were multiple findings consistent with progression of the patient's metastatic lung cancer. There was slightly increased bulk of the confluent mediastinal soft tissue densities, a relatively increased small to moderate left pleural effusion with underlying rind of soft tissue density surrounding the majority of the left lung. There was also increased interstitial alveolar opacities in the aerated left lung, which could represent progression of malignancy, with superimposed infection or edema possibilities. Right lung showed extensive patchy reticulonodular and groundglass opacities throughout, stable to slightly increased from before. There was some peribronchial vascular soft tissue thickening/nodularity in the right upper lobe region, slightly increased from prior, suggesting progression of malignancy/metastatic disease. There is mild thickened appearance of the right hilar soft tissues again noted. Trachea and right-sided bronchi remain patent. Left proximal mainstem bronchus is patent, but relatively increased luminal narrowing versus the prior exam. Hepatic lesions were redemonstrated, which appeared slightly increased in size and prominence. Patient is currently resting comfortably in bed, on 5 L/min nasal cannula, in no acute distress at rest. SpO2 97%. She denies any infectious- like symptoms such as change in her chronic cough. No hemoptysis or significant purulent sputum production. No fevers noted. She does have chronic chest pain, mostly lateralized to the left chest/ribs. CBC done on arrival was unremarkable. No leukocytosis. CMP on arrival also unremarkable. EKG on arrival shows sinus tachycardia with a rate of 103 bpm no obvious acute ischemic changes. Troponins less than 0.012 x 3. NT proBNP low. Afebrile. Vital signs currently stable. The patient is seen today March 11, 2024 in follow-up on the regular medical floor. She is currently sitting up in bed. Awake and alert in no acute distress. She did undergo a left-sided thoracentesis yesterday with 750 cc of turbid yellow fluid removed. Fluid analysis revealing an exudate with a total protein of greater than 3600. Cultures and cytology is pending. Follow-up chest x-ray reveals diffuse left lung opacity with mild increased lung markings in the right lung base. Moderate left pleural effusion. No evidence of pneumot horax. Procalcitonin was 0.17. She is continued on Symbicort, DuoNebs, Tessalon Perles, Solu-Medrol. Heparin for DVT prophylaxis. Objective - Vital Signs Vital signs: Vital Signs Temp 97.9 F 03/11/24 07:00 Pulse 92 03/11/24 11:10 Resp 20 03/11/24 07:00 BP 136/71 03/11/24 07:00 Pulse Ox 96 03/11/24 07:00 FiO2 Intake & Output 03/10/24 03/11/24 03/11/24 18:59 06:59 18:59 Intake Total 834 Balance 834 Weight 46.72 kg Intake: Oral 834 Other: Voiding Method Toilet Toilet # Voids 1 - Exam GENERAL EXAM: Alert, very pleasant 68-year-old female, frail and cachectic, on 5 L/min nasal cannula. Fairly comfortable in no apparent distress. HEAD: Normocephalic and atraumatic EYES: Normal reaction of pupils, equal size. NOSE: Clear with pink turbinates. THROAT: No erythema or exudates. NECK: No masses, no JVD. CHEST: No chest wall deformity. LUNGS: Equal air entry with scattered rhonchi and right sided inspiratory wheeze. CVS: S1 and S2 normal with no audible murmur, regular rhythm. No extra heart sounds ABDOMEN: No hepatosplenomegaly, active bowel sounds, no guarding or rigidity. SPINE: No scoliosis or deformity SKIN: No rashes CENTRAL NERVOUS SYSTEM: No focal deficits, tone is normal in all 4 extremities. EXTREMITIES: There is no peripheral edema, clubbing, or cyanosis. Peripheral pulses are intact. - Labs CBC & Chem 7: 03/10/24 06:06 03/10/24 06:06 Labs: Microbiology - Last 24 Hours (Table) 03/10/24 10:00 Gram Stain - Preliminary Pleural Fluid Assessment and Plan Assessment: Acute on chronic hypoxemic respiratory failure, likely multifactorial, secondary to acute COPD exacerbation and metastatic non-small cell lung cancer with disease progression. Chest CTA findings done on arrival did not show any evidence of pulmonary emboli. Multiple findings consistent with disease prog ression as mentioned in HPI. There is a enlarging moderate-sized left-sided pleural effusion, likely malignant. Patient noted to be without supplemental oxygen on arrival to her oncology appointment. She has been wearing 5 L/min nasal cannula while at home. Stage IV metastatic lung adenocarcinoma, patient found to have a left 7.5 x 3.2 cm left perihilar mass back in October,. Follow-up PET scan was compatible with primary left upper lung malignancy with metastatic disease to the contral ateral lung, the mediastinum, left neck, left pleural with associated malignant effusion, and within the liver. Did undergo robotic bronchoscopy 12/17/2023 consistent with metastatic non-small cell lung cancer/pulmonary adenocarcinoma. Patient has been started on a combination of Keytruda/carboplatin/Alimta. Follow-up chest CTA done this admission consistent with disease progression Left-sided pleural effusion, likely malignant, may be slightly larger, recurrent, status post thoracentesis of 750 mL of fluid removed on 03/10/2024 Moderate to severe chronic obstructive pulmonary disease, with an FEV1 50% of predicted Chronic hypoxemic respiratory failure, secondary to a combination of above Former tobacco dependence, recently quit after her diagnosis of lung cancer Plan: The patient was seen and evaluated Chest x-ray, labs and medications reviewed Status post left-sided thoracentesis on 03/10/2024 Cleared for discharge from the pulmonary standpoint Continue her home Trelegy, oxygen Continue a prednisone taper To follow-up in our office in 1 week May eventually need Pleurx catheter placement I have personally seen and examined the patient, performed the documentation and the assessment and plan as written. Number of minutes spent on the visit: 10.
--- NOTE | 2024-03-15 10:30 | CDI ---
Documentation Clarification Form Date: 03/15/24 From: Dinah Leon Admit Date: 03/09/2024 08:57:00 PM Patient Name: Shellie Myrick Visit Number: [id number] Discharge Date: 03/11/2024 02:00:00 PM ATTENTION: The Clinical Documentation Specialists (CDI) and [facility] Coding Staff appreciate your assistance in clarifying documentation. Please respond to the clarification below the line at the bottom and electronically sign. The CDI & [facility] Coding staff will review the response and follow-up if needed. Please note: Queries are made part of the Legal Health Record. If you have any questions, please contact the author of this message via ITS. Dr. Juan Pablo Davis, The final diagnosis of the pathology report states Pleural fluid: No cytologically malignant cells identified. Coding guidelines do not allow coding professionals to code based on pathology results; therefore, clarification is requested. 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 Treatment: Left thoracentesis Please clarify if you agree with the pathology report diagnosis of No cytologically malignant cells identified [ X ] Yes [ ] No [ ] Other (please specify) [ ] Unable to determine MTDD
== END 2024-03-11 14:00 | disposition home health service (06) | DRG 189 ==
LOC: EC 16:48 → 6NMEDSUR 20:57
PROVIDERS: ADMIT Internal Medicine; ATTEND Internal Medicine
PROC: 0W9B3ZX Drainage of Left Pleural Cavity, Percutaneous Approach, Diagnostic (ICD-10-PCS; principal; 2024-03-10)
DX: J96.21 Acute and chronic respiratory failure with hypoxia (principal); C78.1 Secondary malignant neoplasm of mediastinum; I31.39 Other pericardial effusion (noninflammatory); R64 Cachexia; C78.01 Secondary malignant neoplasm of right lung; J44.1 Chronic obstructive pulmonary disease with (acute) exacerbation; C34.12 Malignant neoplasm of upper lobe, left bronchus or lung; C78.7 Secondary malignant neoplasm of liver and intrahepatic bile duct; G89.3 Neoplasm related pain (acute) (chronic); Z51.5 Encounter for palliative care; Z28.310 Unvaccinated for COVID-19; M19.90 Unspecified osteoarthritis, unspecified site; Z79.51 Long term (current) use of inhaled steroids; Z79.899 Other long term (current) drug therapy; Z87.891 Personal history of nicotine dependence
CPT/HCPCS: 36415; 71045; 71275; 76604; 80053; 82945; 83615; 83690; 83735; 83880; 84100; 84145; 84157; 84484; 85025; 85379; 85610; 85730; 87070; 87102; 87116; 87205; 87206; 88108; 88305; 88341; 88342; 89050; 93005; 94640; 94760; 96361; 96374; 96375; 99291

== ENCOUNTER 2024-04-13 04:51 | Inpatient (IN) | payer MEDICARE ==
[2024-04-13] MEDS ORDERED: NALOXONE 0.4 MG/ML 1 ML VIAL IV PRN (05:05)
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
[2024-04-13] MEDS: SODIUM CHLORIDE 0.9% 1,000 ML IV SCH (05:17)
[2024-04-13] MEDS: HYDROmorphone 1 MG/ML 1 ML SYRINGE IVP STA (05:34)
--- NOTE | 2024-04-13 07:37 | XR ---
EXAM: XR Chest, 2 Views CLINICAL HISTORY: ITS.REASON XR Reason: sob TECHNIQUE: Frontal and lateral views of the chest. COMPARISON: Chest x-ray 03/18/2024 FINDINGS: Lungs: Pulmonary vascular congestion. Pleural space: Moderate left and trace right pleural effusions. Heart: Unremarkable. No cardiomegaly. Bones/joints: Unremarkable. No fracture or malalignment. IMPRESSION: 1. Moderate left and trace right pleural effusions. 2. Pulmonary vascular congestion.
[2024-04-13] MEDS ORDERED: IPRATROPIUM-ALBUTEROL 3 ML NEB INHALATION PRN (07:54)
[2024-04-13] MEDS: methylPREDNISolone SOD SUCCI 125 MG/2 ML VIAL IV SCH (08:31)
[2024-04-13] MEDS: MORPHINE SULFATE 4 MG/ML SYRINGE IV PRN (08:32)
[2024-04-13] MEDS: FOLIC ACID 1 MG TAB PO SCH (09:15)
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
[2024-04-13] MEDS: IPRATROPIUM-ALBUTEROL 3 ML NEB INHALATION SCH (09:53)
--- NOTE | 2024-04-13 10:04 | US ---
EXAMINATION TYPE: US gallbladder DATE OF EXAM: 04/13/2024 COMPARISON: NONE CLINICAL INDICATION: Female, 68 years old with history of RUQ pain and tenderness; Hx stage 4 lung ca ncer with metastasis; RUQ pain started yesterday morning; Patient and family deny any other relevant signs, symptoms, or history TECHNIQUE: Multiple sonographic images of the right upper quadrant are obtained. FINDINGS: EXAM MEASUREMENTS: Liver Length: 13.3 cm Gallbladder Wall: 0.1 cm CBD: 0.7 cm Right Kidney: 12.4 x 4.5 x 4.6 cm CONSULTANT RN NOTES:Unable to roll patient into decub position Pancreas: wnl Liver: Vague echogenic area superior right lobe = 2.0 x 1.9 x 1.6 cm Gallbladder: wnl Evidence for sonographic Brower's sign: No CBD: Borderline to mildly dilated. Right Kidney: wnl IMPRESSION: 1. The patient's known hepatic metastases are not well demonstrated by ultrasound. A vague 2.0 cm ech ogenic area at the right upper liver lobe may correspond to a metastatic lesion. 2. No gallstones. Bile duct borderline to mildly dilated at 7 mm. This may be normal for patient's ag e. Correlate with alkaline phosphatase and bilirubin levels.
[2024-04-13] MEDS: HYDROmorphone 1 MG/ML 1 ML SYRINGE IVP PRN (10:30)
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
[2024-04-13] MEDS: fentaNYL (PF) 50 MCG/ML 2 ML AMP IVP PRN (13:16)
[2024-04-13] MEDS: IV FLUID CONTINUATION 1,000 ML IV ONE (13:22)
[2024-04-13] MEDS ORDERED: fentaNYL (PF) 50 MCG/ML 2 ML AMP ONE (13:46)
[2024-04-13] MEDS ORDERED: ALBUTEROL HFA INHALER INHALATION ONE (13:46)
[2024-04-13] MEDS ORDERED: PROPOFOL 10 MG/ML 20 ML VIAL IV ONE (13:46)
[2024-04-13] MEDS ORDERED: PHENYLEPHRINE 10 MG/ML VIAL ONE (13:46)
[2024-04-13] MEDS ORDERED: ceFAZolin 1 GM/50 ML BAG (PMX) ONE (13:46)
[2024-04-13] MEDS: SODIUM CHLORIDE 0.9% 100 ML with ceFAZolin 1,000 MG IV ONE (13:48)
[2024-04-13] MEDS: LIDOCAINE 1% INJ 10MG/ML (20 ML MDV) SQ ONE ×2 (14:09)
--- NOTE | 2024-04-13 14:32 | P.OP ---
Date of Procedure: 04/13/24 Preoperative Diagnosis: Stage IV Lung CA with recurrent metastatic left sided pleural effusion Postoperative Diagnosis: Same Procedure(s) Performed: Insertion of left sided pleurX catheter Implants: PleurX - left side Anesthesia: SARAH Surgeon: Triston Dickye Pathology: none sent Condition: stable Disposition: PACU Indications for Procedure: This is a 68 year-old y/o F with a known history of Stage IV lung cancer who presents with recurrent malignant left sided pleural effusion. We recommended pleurX placement. Operative Findings: 500cc of serous fluid drained. Description of Procedure: The patient was brought back to the operating room and placed supine. She was sedated and antibiotics were given. I used 1% lidocaine to anethetize two areas on the skin over the 6th rib and the costal margin. The needle was introduced in the 5th intercostal space and there was good withdraw of straw colored fluid. Guidewire was inserted and checked with flouroscopy. The catheter was tunneled from anterior to posterior and inserted into the chest via the peel away sheath which was inserted over the guidewire under flouroscopic guidance. The posterior incision was closed with monocryl and glue. 500cc of serous fluid was drained from the chest cavity.
[2024-04-13] MEDS: HYDROmorphone 0.5 MG/0.5 ML SYRINGE IVP PRN (14:47)
--- NOTE | 2024-04-13 15:42 | XR ---
EXAMINATION TYPE: XR chest 1V portable DATE OF EXAM: 04/13/2024 2:48 PM CLINICAL INDICATION:Female, 68 years old with history of Pleural Catheter placement; COMPARISON: Chest radiographs from 04/13/2024. TECHNIQUE: XR chest 1V portable Frontal view of the chest. FINDINGS: Lungs/Pleura: There is no evidence of pleural effusion, focal consolidation, or pneumothorax. Pulmonary vascularity: Unremarkable. Heart/mediastinum: Cardiomediastinal silhouette is unremarkable. Musculoskeletal: No acute osseous pathology. There is fixation hardware in the lower cervical spine. IMPRESSION: 1. Left thoracotomy tube with small left pneumothorax. 2. Consolidation changes in the left lung possibly due to combination of atelectasis and pleural fus ion and/or mass.
--- NOTE | 2024-04-13 16:19 | FL ---
EXAMINATION TYPE: FL guidance operating room DATE OF EXAM: 04/13/2024 Comparison: None Clinical History: 68-year-old female [id number] Insertion Findings: 18 sec FL 1.4670 Gycm2 DAP dose PLEUR-X catheter insertion 1 image submitted.
--- NOTE | 2024-04-13 17:43 | CA ---
Transthoracic Echo Report Name: Shellie Myrick Age: 68 Gender: F : 1955 Exam Date: 04/13/2024 11:32 Exam Location: [facility] Ht (in): 61 Wt (lb): 102 Ordering Physician: Azalia Ny Attending/Referring Phys: [id number], Anant Chief Of Safety And Protection [address] RDCS Procedure CPT: Indications: LVF Cardiac Hx: Technical Quality: Good Contrast 1: Total Dose (mL): Contrast 2: Total Dose (mL): MEASUREMENTS (Male / Female) Normal Values 2D ECHO LV Diastolic Diameter PLAX 4.0 cm 4.2 - 5.9 / 3.9 - 5.3 cm LV Systolic Diameter PLAX 2.4 cm IVS Diastolic Thickness 0.8 cm 0.6 - 1.0 / 0.6 - 0.9 cm LVPW Diastolic Thickness 0.9 cm 0.6 - 1.0 / 0.6 - 0.9 cm LV Relative Wall Thickness 0.4 RV Internal Dim ED PLAX 2.1 cm LA Systolic Diameter LX 2.8 cm 3.0 - 4.0 / 2.7 - 3.8 cm LV Diastolic Volume MOD 4C 66.4 cm??? LV Systolic Volume MOD 4C 28.0 cm??? LV Ejection Fraction MOD 4C 57.8 % LV Cardiac Index MOD 4C 2397.7 cm???/min???m??? LV Diastolic Length 4C 6.1 cm LV Systolic Length 4C 4.8 cm LV Diastolic Volume MOD 2C 56.1 cm??? LV Systolic Volume MOD 2C 22.5 cm??? LV Ejection Fraction MOD 2C 60.0 % LV Cardiac Index MOD 2C 2102.6 cm???/min???m??? LV Diastolic Length 2C 6.4 cm LV Systolic Length 2C 5.2 cm LA Volume 24.7 cm??? 18 - 58 / 22 - 52 cm??? LA Volume Index 17.5 cm???/m??? 16 - 28 cm???/m??? M-MODE Aortic Root Diameter MM 3.0 cm AV Cusp Separation MM 2.0 cm DOPPLER AV Peak Velocity 136.6 cm/s AV Peak Gradient 7.5 mmHg MV Area PHT 5.3 cm??? Mitral E Point Velocity 79.3 cm/s Mitral A Point Velocity 95.5 cm/s Mitral E to A Ratio 0.8 MV Deceleration Time 143.2 ms FINDINGS Left Ventricle Left ventricular ejection fraction is estimated at 55-60 %. Left ventricular cavity size normal. Left ventricular wall thickness normal. Normal left ventricular wall motion. Right Ventricle Normal right ventricular size and function. Unable to estimate the right ventricular systolic pressure. Right Atrium Normal right atrial size. No right atrial thrombus or mass seen. Left Atrium Normal left atrial size. No left atrial thrombus or mass present. Mitral Valve Mitral annular calcification. Trace mitral regurgitation. Aortic Valve Trileaflet aortic valve. No aortic valve stenosis or regurgitation. Tricuspid Valve Structurally normal tricuspid valve. No tricuspid prolapse. Pulmonic Valve Structurally normal pulmonic valve. Trace pulmonic regurgitation. Pericardium Small pericardial effusion. Aorta Normal size aortic root and proximal ascending aorta. CONCLUSIONS 1. Normal left ventricle size and systolic function 2. Limited Doppler study with trace mitral regurgitation 3. Small pericardial effusion Previewed by: Dr. Opal Conway MD (Electronically Signed) Final Date: 13 April 2024 17:43
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
[2024-04-13] MEDS: HEPARIN SODIUM,PORCINE 5,000 UNIT/ML 1 ML VIAL SQ SCH (18:23)
[2024-04-13] MEDS: SYMBICORT 160-4.5 MCG INHALER INHALATION SCH (21:19)
[2024-04-14 08:01] LABS: ALT 17 U/L (4-34); AST 24 U/L (14-36); African American GFR (CKD) >90 (>60 ml/min/1.73 sqM); Albumin 3.2 g/dL (3.5-5.0); Albumin/Globulin Ratio 1.2; Alkaline Phosphatase 93 U/L (38-126); Anion Gap 8 mmol/L; Blood Urea Nitrogen 11 mg/dL (7-17); Carbon Dioxide 21 mmol/L (22-30); Chloride 104 mmol/L (98-107); Globulin 2.7 g/dL; Glucose 141 mg/dL (74-99); Non-African American GFR(CKD) >90 (>60 ml/min/1.73 sqM); Potassium 4.2 mmol/L (3.5-5.1); Sodium 133 mmol/L (137-145); Total Bilirubin 0.4 mg/dL (0.2-1.3); Total Protein 5.9 g/dL (6.3-8.2)
--- NOTE | 2024-04-14 10:27 | P.PN ---
Subjective HISTORY OF PRESENT ILLNESS: This is a 68-year-old female with past medical history of stage IV metastatic non-small cell lung cancer undergoing chemotherapy and radiation therapy with Dr. Boyd, chronic hypoxic respiratory failure on home O2, COPD, remote history of tobacco use and dependence, recently quit. We have been asked to evaluate the patient for chest pain. Patient initially presented to [facility] due to shortness of breath. CTA of the chest revealed no PE. Suspected left upper lobe mass with occlusion and narrowing of the left upper lobe segment and subsegment of the pulmonary arterial branches and left upper lobe post obstructive atelectasis or pneumonia. Emphysema, bronchitis, bronchiectasis and multi focal mucous plugging. Left pleural effusion. Lesions in the liver. Thickening of the left adrenal gland. Sclerotic focus of the sternal mandibular area with possible metastatic lesions. EKG sinus rhythm with no acute ST-T wave changes. Hemoglobin 11.2, creatinine 0.4, troponins were negative x 2. proBNP 25. Patient is complaining of pain under her right breast which is tender to touch. She states it started at 10 PM and woke her from sleep. Patient is seen today in the emergency center waiting for bed on the cardiac stepdown unit. Blood pressure 109/59, heart rate 106, pulse ox 99% on nonrebreather. 04/14/2024 Patient examined this morning the bedside. Patient's family is present. Patient is status post left-sided Pleurx catheter placement. Patient reports improvement in her shortness of breath this morning. She denies any chest pain or pressure. Echocardiogram completed revealing ejection fraction 55 to 60%, trace MR, and small pericardial effusion PHYSICAL EXAM: VITAL SIGNS: Reviewed. GENERAL: Well-developed in no acute distress. NECK: Supple. No JVD or thyromegaly LUNGS: Respirations even and unlabored. Lungs essentially clear to auscultation bilaterally. HEART: Regular rate and rhythm. S1 and S2 heard. EXTREMITIES: Normal range of motion. No clubbing or cyanosis. Peripheral pulses intact. No lower extremity edema ASSESSMENT: Atypical chest pain, musculoskeletal and reproducible, acute coronary syndrome ruled out Recurrent left-sided pleural effusion, status post Pleurx catheter insertion Recently diagnosed metastatic pulmonary adenocarcinoma, status post 3 rounds of chemotherapy Acute on chronic hypoxic respiratory failure COPD Remote history of tobacco use, recently quit Small pericardial effusion PLAN: Continue current cardiac medications No further inpatient recommendations from a cardiac standpoint We will sign off. Please reconsult if needed. Nurse practitioner note has been reviewed by physician. Signing provider agrees with the documented findings, assessment, and plan of care documented by DIRECTOR OF CRITICAL CARE as a scribe. Objective - Vital Signs Vital signs: Vital Signs Temp 97.5 F L 04/14/24 07:38 Pulse 84 04/14/24 08:10 Resp 18 04/14/24 07:38 BP 121/61 04/14/24 07:38 Pulse Ox 93 L 04/14/24 07:59 FiO2 Intake & Output 04/13/24 04/14/24 04/14/24 18:59 06:59 18:59 Intake Total 975 Output Total 5 Balance 970 Weight 48 kg 51 kg Intake: IV 975 Output: Estimated Blood Loss 5 Other: Voiding Method Bedside Commode # Voids 1 3 - Labs CBC & Chem 7: 04/14/24 06:47 Labs: Abnormal Lab Results - Last 24 Hours (Table) 04/14/24 Range/Units 06:47 Sodium 133 L (137-145) mmol/L Carbon Dioxide 21 L (22-30) mmol/L Creatinine 0.29 L (0.52-1.04) mg/dL Glucose 141 H (74-99) mg/dL Total Protein 5.9 L (6.3-8.2) g/dL Albumin 3.2 L (3.5-5.0) g/dL
[2024-04-14 11:05] LABS: HCT 32.7 % (37.2-46.3); HGB 10.7 g/dL (12.0-15.0); MCH 30.4 pg (27.0-32.0); MCHC 32.7 g/dL (32.0-37.0); MCV 92.9 FL (80.0-97.0); Mean Platelet Volume 9.5 FL (9.5-12.2); NRBC Per 100 WBC 0 X 10*3/uL (0.00-0.01); Platelet Count 233 X 10*3/uL (140-440); RBC 3.52 X 10*6/uL (4.10-5.20); RDW 16.9 % (11.5-14.5); WBC 5.37 X 10*3/uL (4.50-10.00)
--- NOTE | 2024-04-14 14:26 | P.PN ---
Subjective Progress Note Date: 04/14/24 Hospital Course: Patient is a very pleasant 68-year-old female with a past medical history of chronic hypoxic respiratory failure home oxygen dependent on 2 L at all times secondary to stage IV metastatic non-small cell lung cancer currently undergoing chemotherapy and radiation treatment with Dr. Boyd with last reported treatment being 03/25/2024. Patient presented to the emergency department at [facility] for a chief complaint of right-sided chest pain and and worsening shortness of breath on 04/13/2024. Patient was found to be in acute on chronic respiratory failure with hypoxia and transferred to our facility for further evaluation. She was admitted under our services with consultations to pulmonology, cardiology, and oncology. After evaluation by pulmonology, cardiothoracic surgery was consulted for placement of left-sided Pleurx catheter which was placed on 04/13/2024. Data and Imaging completed at [facility] revealsed: -Chest x-ray was completed showing extensive coarse interstitial markings with a dense opacity in the left suprahilar region. -CTA chest completed negative for acute pulmonary emboli showing pulmonary emphysema with left suprahilar masslike opacity with likely postobstructive atelectasis or pneumonia measuring approximately 1.6 x 3.8 cm with moderate left pleural effusion and suspected mucous plugging and atelectasis in the left lower lobe with interlobular septal thickening along with defined lesions in the liver measuring up to 2.2 cm and the left and right lobes. -EKG completed and reviewed showing normal sinus rhythm at 93 bpm with no noted T wave or ST abnormalities upon personal review and interpretation. -Labs were completed and reviewed. CBC showing a WBC count of 6.7, hemoglobin of 11.2 and platelet count of 194. Coagulation profile showing PT 9.6, INR 0.90, and PTT of 22.5. BMP showing sodium 134, potassium 4.6, chloride 100, bicarb 25, anion gap of 9 and renal function showing BUN 9, creatinine 0.4, and GFR of 159. Liver profile was unremarkable. Magnesium normal findings at 1.9. Creatinine kidneys 76. Troponin negative at less than 0.05 and BNP was 25. -RSV, influenza A, and influenza B were negative. Data and Imaging completed at our facility includes: -Vital signs upon arrival to our facility patient was on nonrebreather oxygen mask at 15 L with SpO2 of 99%. Remainder of vital signs as follows blood pressure 121/60, heart rate 117, respiratory rate 20, and temp 98.0 F. -EKG was completed showing sinus tachycardia at 111 bpm with no noted T wave or ST abnormalities showing no signs of acute ischemia. -Repeat troponin was also negative at less than 0.012. -Abdominal/Gallbladder ultrasound completed radiology report stating patient's known hepatic masses are not well-demonstrated by ultrasound reporting a vague 2.0 cm each echogenic area in the right upper liver lobe, no gallstones, and bile duct is reported to be borderline to mildly dilated at 7 mm. -Echocardiogram completed showing preserved EF of 55 to 60% with trace mitral regurgitation and small pericardial effusion. Physical exam: Vital signs reviewed and stable. General: Nontoxic, no distress and appears stated age. Derm: Skin warm and dry, normal coloration for ethnicity. Head: Atraumatic, normocephalic and symmetric. Eyes: EOMs intact, no lid lag, and anicteric sclera Mouth: no lip lesions, mucus membranes moist Cardiovascular: regular rate and rhythm with normal S1S2, no murmur, positive posterior tibial pulses bilaterally, and cap refill < 2 seconds. Lungs: Respirations even, regular, and unlabored on 4L O2 via nasal cannula. Lungs diminished with diffuse expiratory wheezes noted. Pleurx catheter left chest. Abdominal: soft, tenderness reported to palpation right upper quadrant. No guarding, no appreciable organomegaly Ext: ROM intact. No gross muscle atrophy, no edema, no contractures Neuro: Speech clear, face symmetrical and CN II-XII grossly intact with no noted focal neuro deficits Psych: Alert and oriented to person, place, time, and situation. Appropriate and pleasant affect. Assessment and Plan of Care: Acute on chronic respiratory failure with hypoxia Large Left-sided pleural effusion, status post Pleurx catheter placement Emphysema, bronchitis, and bronchiectasis with multifocal mucous plugging rep orted on CT Stage IV metastatic non-small cell lung cancer Right-sided chest pain/right upper quadrant pain History of nicotine dependence -Pulmonology following, reviewed documentation in chart. -Cardiothoracic surgery following, placed Pleurx catheter on 04/13/2024. -Cardiology following and discussed case with striper and cardiac SANITARIAN. -Oncology following and discussed plan of care with oncologist. Patient undergoing chemotherapy treatment today. -Continue supplemental oxygen and to be administered and titrated as needed to maintain SPO2 equal to or greater than 90%. Patient on baseline O2 of 2 L and currently has been weaned down to 4 L. -Continuous telemetry monitoring. -Monitor pulse-oximetry -Duonebs scheduled 4 times daily and as needed for SOB and/or wheezing -Incentive Spirometry -Steroids: Solu-Medrol 60 mg IVP every 8 hours -Continue Symbicort 160-4.5 mcg inhaler 2 puffs twice daily. -Abdominal/Gallbladder ultrasound completed radiology report stating patient's known hepatic masses are not well-demonstrated by ultrasound reporting a vague 2.0 cm each echogenic area in the right upper liver lobe, no gallstones, and bile duct is reported to be borderline to mildly dilated at 7 mm. -Echocardiogram completed showing preserved EF of 55 to 60% with trace mitral regurgitation and small pericardial effusion. Data and imaging reviewed on today's exam: -Abdominal/Gallbladder ultrasound completed radiology report stating patient's known hepatic masses are not well-demonstrated by ultrasound reporting a vague 2.0 cm each echogenic area in the right upper liver lobe, no gallstones, and bile duct is reported to be borderline to mildly dilated at 7 mm. -Echocardiogram completed showing preserved EF of 55 to 60% with trace mitral regurgitation and small pericardial effusion. -Vital signs reviewed. Blood pressure 121/61, heart rate 73, respiratory rate 18, temp 97.5 F, and SpO2 of 97% on 4 L. -Morning labs reviewed. CBC showing stable normocytic anemia with hemoglobin of 10.7. BMP showing mild hyponatremia with sodium of 133, hypocarbia with bicarb of 21 and blood glucose of 141. CODE STATUS: Full code DVT prophylaxis: Heparin Anticipated discharge date: Pending clinical course Anticipated discharge place: Pending clinical course Patient was seen independently by Nurse Practitioner. This document was prepared using [employer] dictation software. Please allow for errors in business development representative while rare they do occur. Samson Sandoval NP rendered care for this patient independently, reviewed the findings and plan as documented in the note above. I did not physically speak with or examine the patient on this date. Objective - Vital Signs Vital signs: Vital Signs Temp 97.5 F L 04/14/24 07:38 Pulse 84 04/14/24 08:10 Resp 18 04/14/24 07:38 BP 121/61 04/14/24 07:38 Pulse Ox 93 L 04/14/24 07:59 FiO2 Intake & Output 04/13/24 04/14/24 04/14/24 18:59 06:59 18:59 Intake Total 975 Output Total 5 Balance 970 Weight 48 kg 51 kg Intake: IV 975 Output: Estimated Blood Loss 5 Other: Voiding Method Bedside Commode # Voids 1 3 - Labs CBC & Chem 7: 04/14/24 06:47 04/14/24 06:47 Labs: Abnormal Lab Results - Last 24 Hours (Table) 04/14/24 Range/Units 06:47 Sodium 133 L (137-145) mmol/L Carbon Dioxide 21 L (22-30) mmol/L Creatinine 0.29 L (0.52-1.04) mg/dL Glucose 141 H (74-99) mg/dL Total Protein 5.9 L (6.3-8.2) g/dL Albumin 3.2 L (3.5-5.0) g/dL
[2024-04-14] MEDS: HYDROcodone/APAP 10-325MG 1 EACH TAB PO PRN (15:49)
--- NOTE | 2024-04-14 17:39 | P.PN ---
Subjective Progress Note Date: 04/14/24 68-year-old female patient with metastatic pulmonary adenocarcinoma. The patient is well-known to me. established diagnosis back in December. At that time, the patient had a large left upper lobe mass and a right upper lobe pulmonary nodule and mediastinal lymphadenopathy. Bronchoscopy and biopsy of the left upper lobe mass and right upper lobe mass and subcarinal lymph nodes were all positive for pulm adenocarcinoma. The patient was referred to medical oncology and the patient was started on systemic treatment and the patient is currently receiving a combination of carboplatinum, Alimta and Keytruda. She has already completed 3 sessions of systemic chemotherapy. She was in the emergency department and in the hospital in February 2024. At that time, the patient was found to have a large left-sided pleural effusion. Thoracentesis was done and a total of 700 cc of pleural fluid was aspirated. The fluid was nonmalignant and based on the chemistry, it was an exudate with a high protein level. The patient felt better and the patient was discharged home. She was seen in the office and she was doing well and she was thought to have symptoms of COPD exacerbation. She was treated accordingly. The patient came into the emergency department yesterday because of worsening shortness of breath. On her chest x-ray, there is a large left-sided pleural effusion consistent with recurrent pleural effusion. She is quite short of breath and she is currently on 100% nonrebreather facemask. She is hemodynamically stable. Cardiac rhythm is sinus. Normotensive at this point in time. The blood work shows a white cell count of 8.3 with hemoglobin 15 and a platelet count of 288. Troponins are negative. The rest of the chemistry is still pending. She is known to have COPD. Her FEV1 is noted of 57% of predicted with significantly impaired diffusion capacity. She has been maintained on Advair and on outpatient basis in addition to albuterol updrafts. On a separate note, she has been complaining of a right upper quadrant pain. LFTs are still pending. Ultrasound of the righ t upper quadrant and gallbladder is in progress. She is known to have also hepatic metastases with at least 5 lesions noted on the PET scan that was done in December 2023 involving the right hepatic lobe. On today's evaluation of 04/14/2024, the patient is less short of breath and she is currently on 4 L of oxygen by nasal cannula. No other specific complaints. The chest x-ray following the Pleurx catheter insertion showed volume loss in the left lung, nevertheless, the overall aeration is improved. Noted at the time of the procedure, the patient has a total of 500 cc of serous fluid drained. She has no other new complaints for now. BUN is 11 with a creatinine of 0.29. The white cell count is at 5.3 with a hemoglobin 10.7 and platelet count of 233. Will obtain a follow-up chest x-ray in a.m. Afebrile. Hemodynamically stable. Maintained on Symbicort and DuoNeb up chest. Maintained on IV Solu-Medrol regarding her COPD exacerbation. Objective - Vital Signs Vital signs: Vital Signs Temp 98.5 F 04/14/24 12:38 Pulse 84 04/14/24 15:07 Resp 18 04/14/24 12:38 BP 114/57 04/14/24 12:38 Pulse Ox 93 L 04/14/24 12:38 FiO2 Intake & Output 04/13/24 04/14/24 04/14/24 18:59 06:59 18:59 Intake Total 975 Output Total 5 Balance 970 Weight 48 kg 51 kg Intake: IV 975 Output: Estimated Blood Loss 5 Other: Voiding Method Bedside Commode # Voids 1 3 1 - Exam GENERAL EXAM: Alert, 68-year-old white female, frail and cachectic, fairly comfortable in no apparent distress. The patient is currently on 100% nonrebreather facemask. Lethargic is arousable. She communicates. Continue using accessory muscles of breathing at this point in time. HEAD: Normocephalic and atraumatic EYES: Normal reaction of pupils, equal size. NOSE: Clear with pink turbinates. THROAT: No erythema or exudates. NECK: No masses, no JVD. CHEST: No chest wall deformity. LUNGS: On equal air entry with scattered rhonchi and right sided inspiratory wheeze. Improved aeration of the left lung and the patient has a Pleurx cathet er in the left. CVS: S1 and S2 normal with no audible murmur, regular rhythm. No extra heart sounds ABDOMEN: No hepatosplenomegaly, active bowel sounds, no guarding or rigidity. Direct tenderness in the right upper quadrant. SPINE: No scoliosis or deformity SKIN: No rashes CENTRAL NERVOUS SYSTEM: No focal deficits, tone is normal in all 4 extremities. EXTREMITIES: There is no peripheral edema, clubbing, or cyanosis. Peripheral pulses are intact. - Labs CBC & Chem 7: 04/14/24 06:47 04/14/24 06:47 Labs: Abnormal Lab Results - Last 24 Hours (Table) 04/14/24 04/14/24 Range/Units 06:47 06:47 RBC 3.52 L (4.10-5.20) X 10*6/uL Hgb 10.7 L (12.0-15.0) g/dL Hct 32.7 L (37.2-46.3) % RDW 16.9 H (11.5-14.5) % Sodium 133 L (137-145) mmol/L Carbon Dioxide 21 L (22-30) mmol/L Creatinine 0.29 L (0.52-1.04) mg/dL Glucose 141 H (74-99) mg/dL Total Protein 5.9 L (6.3-8.2) g/dL Albumin 3.2 L (3.5-5.0) g/dL Assessment and Plan Plan: Acute hypoxic respiratory failure. The patient is chronically hypoxic maintained on 2 L of oxygen by nasal cannula. She comes in with worsening shortness of breath and hypoxemic respiratory failure patient is currently on 100% nonrebreather facemask with a pulse ox of 99%. Chest x-ray showing a large left-sided pleural effusion. At the same time, the patient has obvious signs of an acute COPD exacerbation and she is actively bronchospastic and wheezy. However, the decomposition is probably related to the recurrent large left-sided pleural effusion Left-sided pleural effusion with a previous thoracentesis and evacuation of approximately 700 cc of pleural fluid with negative cytology. The fluid is an exudate. Fluid has recurrent rapidly over the past 4 weeks Shortness of breath secondary to above Stage IV metastatic lung adenocarcinoma, patient found to have a left 7.5 x 3.2 cm left perihilar mass back in October,. Follow-up PET scan was compatible with primary left upper lung malignancy with metastatic disease to the contralateral lung, the mediastinum, left neck, left pleural with associated malignant effusion, and within the liver. Did undergo navigational robotic bronchoscopy 12/17/2023 consistent with metastatic non-small cell lung cancer/pulmonary adenocarcinoma. Patient has been started on a combination of Keytruda/carboplatin/Alimta. Follow-up chest CTA done this admission consistent with disease progression. Right upper quadrant pain, likely secondary to hepatic metastases Moderate to severe chronic obstructive pulmonary disease, with an FEV1 50% of predicted Chronic hypoxemic respiratory failure, secondary to a combination of above Former tobacco dependence, recently quit after her diagnosis of lung cancer Plan Pleurx catheter was inserted on 04/13/2024 and the patient 500 cc of pleural fluid drained Persistent volume loss in the left lung Repeat chest x-ray in the morning May evaluate drainage through the Pleurx catheter and this can be performed tomorrow Continue bronchodilators and steroids Prognosis poor. CODE STATUS needs to be established.
[2024-04-15 08:43] LABS: HCT 29.3 % (37.2-46.3); HGB 9.9 g/dL (12.0-15.0); MCH 30.5 pg (27.0-32.0); MCHC 33.8 g/dL (32.0-37.0); MCV 90.2 FL (80.0-97.0); Mean Platelet Volume 9.5 FL (9.5-12.2); NRBC Per 100 WBC 0 X 10*3/uL (0.00-0.01); Platelet Count 248 X 10*3/uL (140-440); RBC 3.25 X 10*6/uL (4.10-5.20); RDW 16.7 % (11.5-14.5); WBC 6.35 X 10*3/uL (4.50-10.00)
[2024-04-15 08:59] LABS: ALT 17 U/L (8-44); AST 18 U/L (13-35); Albumin 3.4 g/dL (3.8-4.9); Albumin/Globulin Ratio 1.42 Ratio (1.60-3.17); Alkaline Phosphatase 78 U/L (41-126); Carbon Dioxide 27.7 mmol/L (21.6-31.8); Chloride 101 mmol/L (96-109); Globulin 2.4 g/dL (1.6-3.3); Glucose 137 mg/dL (70-110); Potassium 4.4 mmol/L (3.5-5.5); Sodium 138 mmol/L (135-145); Total Bilirubin <0.2 mg/dL (0.3-1.2); Total Protein 5.8 g/dL (6.2-8.2)
--- NOTE | 2024-04-15 13:42 | XR ---
EXAMINATION TYPE: XR chest 1V DATE OF EXAM: 04/15/2024 COMPARISON: 04/13/2024 HISTORY: 68-year-old female pleural effusion TECHNIQUE: Single frontal view of the chest is obtained. FINDINGS: ACF hardware and posterior cervical fusion hardware. Left-sided chest tube in place. A sma ll left apical pneumothorax measures 2.3 cm versus 2.0 cm, previously. However, a previous left basil ar component is no longer seen but may be filled in by a moderate pleural effusion now. Aeration in t he upper lungs seems to be showing some improvement. Hyperinflation throughout the right lung. Volume loss left hemithorax. IMPRESSION: Similar volume loss left hemithorax with underlying moderate effusion with adjacent atel ectasis and/or consolidation. Left-sided chest tube in place. A small left apical pneumothorax curren tly 2.3 cm versus 2.0 cm, previously. The previous basilar pneumothorax component is either resolved or now filled in with fluid.
--- NOTE | 2024-04-15 14:05 | P.PN ---
Subjective Progress Note Date: 04/15/24 Hospital Course: Patient is a very pleasant 68-year-old female with a past medical history of chronic hypoxic respiratory failure home oxygen dependent on 2 L at all times secondary to stage IV metastatic non-small cell lung cancer currently undergoing chemotherapy and radiation treatment with Dr. Boyd with last reported treatment being 03/25/2024. Patient presented to the emergency department at [facility] for a chief complaint of right-sided chest pain and and worsening shortness of breath on 04/13/2024. Patient was found to be in acute on chronic respiratory failure with hypoxia and transferred to our facility for further evaluation. She was admitted under our services with consultations to pulmonology, cardiology, and oncology. After evaluation by pulmonology, cardiothoracic surgery was consulted for placement of left-sided Pleurx catheter which was placed on 04/13/2024. Data and Imaging completed at [facility] revealsed: -Chest x-ray was completed showing extensive coarse interstitial markings with a dense opacity in the left suprahilar region. -CTA chest completed negative for acute pulmonary emboli showing pulmonary emphysema with left suprahilar masslike opacity with likely postobstructive atelectasis or pneumonia measuring approximately 1.6 x 3.8 cm with moderate left pleural effusion and suspected mucous plugging and atelectasis in the left lower lobe with interlobular septal thickening along with defined lesions in the liver measuring up to 2.2 cm and the left and right lobes. -EKG completed and reviewed showing normal sinus rhythm at 93 bpm with no noted T wave or ST abnormalities upon personal review and interpretation. -Labs were completed and reviewed. CBC showing a WBC count of 6.7, hemoglobin of 11.2 and platelet count of 194. Coagulation profile showing PT 9.6, INR 0.90, and PTT of 22.5. BMP showing sodium 134, potassium 4.6, chloride 100, bicarb 25, anion gap of 9 and renal function showing BUN 9, creatinine 0.4, and GFR of 159. Liver profile was unremarkable. Magnesium normal findings at 1.9. Creatinine kidneys 76. Troponin negative at less than 0.05 and BNP was 25. -RSV, influenza A, and influenza B were negative. Data and Imaging completed at our facility includes: -Vital signs upon arrival to our facility patient was on nonrebreather oxygen mask at 15 L with SpO2 of 99%. Remainder of vital signs as follows blood pressure 121/60, heart rate 117, respiratory rate 20, and temp 98.0 F. -EKG was completed showing sinus tachycardia at 111 bpm with no noted T wave or ST abnormalities showing no signs of acute ischemia. -Repeat troponin was also negative at less than 0.012. -Abdominal/Gallbladder ultrasound completed radiology report stating patient's known hepatic masses are not well-demonstrated by ultrasound reporting a vague 2.0 cm each echogenic area in the right upper liver lobe, no gallstones, and bile duct is reported to be borderline to mildly dilated at 7 mm. -Echocardiogram completed showing preserved EF of 55 to 60% with trace mitral regurgitation and small pericardial effusion. Physical exam: Vital signs reviewed and stable. General: Nontoxic, no distress and appears stated age. Derm: Skin warm and dry, normal coloration for ethnicity. Head: Atraumatic, normocephalic and symmetric. Eyes: EOMs intact, no lid lag, and anicteric sclera Mouth: no lip lesions, mucus membranes moist Cardiovascular: regular rate and rhythm with normal S1S2, no murmur, positive posterior tibial pulses bilaterally, and cap refill < 2 seconds. Lungs: Respirations even, regular, and unlabored on 4L O2 via nasal cannula. Lungs diminished with diffuse expiratory wheezes noted. Pleurx catheter left chest. Abdominal: soft, tenderness reported to palpation right upper quadrant. No guarding, no appreciable organomegaly Ext: ROM intact. No gross muscle atrophy, no edema, no contractures Neuro: Speech clear, face symmetrical and CN II-XII grossly intact with no noted focal neuro deficits Psych: Alert and oriented to person, place, time, and situation. Appropriate and pleasant affect. Assessment and Plan of Care: Acute on chronic respiratory failure with hypoxia Large Left-sided pleural effusion, status post Pleurx catheter placement Emphysema, bronchitis, and bronchiectasis with multifocal mucous plugging rep orted on CT Stage IV metastatic non-small cell lung cancer Right-sided chest pain/right upper quadrant pain History of nicotine dependence -Pulmonology following, reviewed documentation in chart. -Cardiothoracic surgery following, placed Pleurx catheter on 04/13/2024. -Cardiology following and discussed case with trip motor operator and cardiac [employer]. -Oncology following and discussed plan of care with oncologist. Patient undergoing chemotherapy treatment today. -Continue supplemental oxygen and to be administered and titrated as needed to maintain SPO2 equal to or greater than 90%. Patient on baseline O2 of 2 L and currently has been weaned down to 4 L. -Continuous telemetry monitoring. -Monitor pulse-oximetry -Duonebs scheduled 4 times daily and as needed for SOB and/or wheezing -Incentive Spirometry -Steroids: Solu-Medrol 60 mg IVP every 8 hours -Continue Symbicort 160-4.5 mcg inhaler 2 puffs twice daily. -Abdominal/Gallbladder ultrasound completed radiology report stating patient's known hepatic masses are not well-demonstrated by ultrasound reporting a vague 2.0 cm each echogenic area in the right upper liver lobe, no gallstones, and bile duct is reported to be borderline to mildly dilated at 7 mm. -Echocardiogram completed showing preserved EF of 55 to 60% with trace mitral regurgitation and small pericardial effusion. Data and imaging reviewed on today's exam: -Vital signs reviewed. Blood pressure 121/61, heart rate 73, respiratory rate 18, temp 97.5 F, and SpO2 of 97% on 4 L. -Morning labs reviewed. CBC showing stable normocytic anemia with hemoglobin of 9.9. BMP unremarkable. Blood glucose 137. Magnesium normal findings at 2.0. Liver profile showing hypoalbuminemia with albumin of 3.4 and low protein of 5.8. CODE STATUS: Full code DVT prophylaxis: Heparin Anticipated discharge date: Pending clinical course Anticipated discharge place: Pending clinical course Patient was seen independently by Nurse Practitioner. This document was prepared using [employer] dictation software. Please allow for errors in boats renter while rare they do occur. Samson Sandoval NP rendered care for this patient independently, reviewed the findings and plan as documented in the note above. I did not physically speak with or examine the patient on this date. Objective - Vital Signs Vital signs: Vital Signs Temp 97.6 F 04/15/24 12:38 Pulse 84 04/15/24 12:38 Resp 18 04/15/24 12:38 BP 107/66 04/15/24 12:38 Pulse Ox 96 04/15/24 12:38 FiO2 Intake & Output 04/14/24 04/15/24 04/15/24 18:59 06:59 18:59 Weight 52 kg Other: Voiding Method Bedside Commode # Voids 1 2 3 - Labs CBC & Chem 7: 04/15/24 04:15 07/05/24 04:15 Labs: Abnormal Lab Results - Last 24 Hours (Table) 04/15/24 04/15/24 Range/Units 04:15 04:15 RBC 3.25 L (4.10-5.20) X 10*6/uL Hgb 9.9 L (12.0-15.0) g/dL Hct 29.3 L (37.2-46.3) % RDW 16.7 H (11.5-14.5) % Creatinine 0.4 L (0.6-1.5) mg/dL BUN/Creatinine Ratio 25.00 H (12.00-20.00) Ratio Glucose 137 H (70-110) mg/dL Total Bilirubin <0.2 L (0.3-1.2) mg/dL Total Protein 5.8 L (6.2-8.2) g/dL Albumin 3.4 L (3.8-4.9) g/dL Albumin/Globulin Ratio 1.42 L (1.60-3.17) Ratio
--- NOTE | 2024-04-15 15:05 | P.PN ---
Subjective Progress Note Date: 04/15/24 68-year-old female patient with metastatic pulmonary adenocarcinoma. The patient is well-known to me. established diagnosis back in December. At that time, the patient had a large left upper lobe mass and a right upper lobe pulmonary nodule and mediastinal lymphadenopathy. Bronchoscopy and biopsy of the left upper lobe mass and right upper lobe mass and subcarinal lymph nodes were all positive for pulm adenocarcinoma. The patient was referred to medical oncology and the patient was started on systemic treatment and the patient is currently receiving a combination of carboplatinum, Alimta and Keytruda. She has already completed 3 sessions of systemic chemotherapy. She was in the emergency department and in the hospital in February 2024. At that time, the patient was found to have a large left-sided pleural effusion. Thoracentesis was done and a total of 700 cc of pleural fluid was aspirated. The fluid was nonmalignant and based on the chemistry, it was an exudate with a high protein level. The patient felt better and the patient was discharged home. She was seen in the office and she was doing well and she was thought to have symptoms of COPD exacerbation. She was treated accordingly. The patient came into the emergency department yesterday because of worsening shortness of breath. On her chest x-ray, there is a large left-sided pleural effusion consistent with recurrent pleural effusion. She is quite short of breath and she is currently on 100% nonrebreather facemask. She is hemodynamically stable. Cardiac rhythm is sinus. Normotensive at this point in time. The blood work shows a white cell count of 8.3 with hemoglobin 15 and a platelet count of 288. Troponins are negative. The rest of the chemistry is still pending. She is known to have COPD. Her FEV1 is noted of 57% of predicted with significantly impaired diffusion capacity. She has been maintained on Advair and on outpatient basis in addition to albuterol updrafts. On a separate note, she has been complaining of a right upper quadrant pain. LFTs are still pending. Ultrasound of the righ t upper quadrant and gallbladder is in progress. She is known to have also hepatic metastases with at least 5 lesions noted on the PET scan that was done in December 2023 involving the right hepatic lobe. On today's evaluation of 04/14/2024, the patient is less short of breath and she is currently on 4 L of oxygen by nasal cannula. No other specific complaints. The chest x-ray following the Pleurx catheter insertion showed volume loss in the left lung, nevertheless, the overall aeration is improved. Noted at the time of the procedure, the patient has a total of 500 cc of serous fluid drained. She has no other new complaints for now. BUN is 11 with a creatinine of 0.29. The white cell count is at 5.3 with a hemoglobin 10.7 and platelet count of 233. Will obtain a follow-up chest x-ray in a.m. Afebrile. Hemodynamically stable. Maintained on Symbicort and DuoNeb up chest. Maintained on IV Solu-Medrol regarding her COPD exacerbation. 04/15/2024, the patient is stable. Repeat chest x-ray was done today and the patient was found to have volume loss in the left hemithorax with underlying left-sided pleural effusion/atelectasis. Pleurx catheter was seen in place. Drainage of the pleural fluid was done through the Pleurx catheter and a total of 150 cc of fluid was obtained. The patient is stable on 40s of oxygen by nasal cannula pulse ox 96%. She is also on a combination of bronchodilators and Symbicort as maintenance and IV Solu-Medrol 60 mg every 6 hours. Less bronchosp astic and wheezy. The white cell count is 6.3 with a hemoglobin 9.9 and platelet count of 248. BUN is 10 with a creatinine 0.4 and sodium levels at 138. Objective - Vital Signs Vital signs: Vital Signs Temp 97.6 F 04/15/24 12:38 Pulse 84 04/15/24 12:38 Resp 18 04/15/24 12:38 BP 107/66 04/15/24 12:38 Pulse Ox 96 04/15/24 12:38 FiO2 Intake & Output 04/14/24 04/15/24 04/15/24 18:59 06:59 18:59 Weight 52 kg Other: Voiding Method Bedside Commode # Voids 1 2 3 - Exam GENERAL EXAM: Alert, 68-year-old white female, frail and cachectic, fairly comfortable in no apparent distress. The patient is currently on 100% nonrebreather facemask. Lethargic is arousable. She communicates. Continue using accessory muscles of breathing at this point in time. HEAD: Normocephalic and atraumatic EYES: Normal reaction of pupils, equal size. NOSE: Clear with pink turbinates. THROAT: No erythema or exudates. NECK: No masses, no JVD. CHEST: No chest wall deformity. LUNGS: On equal air entry with scattered rhonchi and right sided inspiratory wheeze. Improved aeration of the left lung and the patient has a Pleurx catheter in the left. CVS: S1 and S2 normal with no audible murmur, regular rhythm. No extra heart sounds ABDOMEN: No hepatosplenomegaly, active bowel sounds, no guarding or rigidity. Direct tenderness in the right upper quadrant. SPINE: No scoliosis or deformity SKIN: No rashes CENTRAL NERVOUS SYSTEM: No focal deficits, tone is normal in all 4 extremities. EXTREMITIES: There is no peripheral edema, clubbing, or cyanosis. Peripheral pulses are intact. - Labs CBC & Chem 7: 04/15/24 04:15 04/15/24 04:15 Labs: Abnormal Lab Results - Last 24 Hours (Table) 04/15/24 04/15/24 Range/Units 04:15 04:15 RBC 3.25 L (4.10-5.20) X 10*6/uL Hgb 9.9 L (12.0-15.0) g/dL Hct 29.3 L (37.2-46.3) % RDW 16.7 H (11.5-14.5) % Creatinine 0.4 L (0.6-1.5) mg/dL BUN/Creatinine Ratio 25.00 H (12.00-20.00) Ratio Glucose 137 H (70-110) mg/dL Total Bilirubin <0.2 L (0.3-1.2) mg/dL Total Protein 5.8 L (6.2-8.2) g/dL Albumin 3.4 L (3.8-4.9) g/dL Albumin/Globulin Ratio 1.42 L (1.60-3.17) Ratio Assessment and Plan Plan: Acute hypoxic respiratory failure. The patient is chronically hypoxic maintained on 2 L of oxygen by nasal cannula. She comes in with worsening shortness of breath and hypoxemic respiratory failure patient is currently on 100% nonrebreather facemask with a pulse ox of 99%. Chest x-ray showing a large left-sided pleural effusion. At the same time, the patient has obvious signs of an acute COPD exacerbation and she is actively bronchospastic and wheezy. However, the decomposition is probably related to the recurrent large left-sided pleural effusion, left Pleurx catheter was inserted and the patient had 500 cc of fluid drained in the operating room and another 150 cc of fluid was drained today on 04/15/2024. Left-sided pleural effusion, exudate, post Pleurx catheter insertion Shortness of breath secondary to above, improving Stage IV metastatic lung adenocarcinoma, patient found to have a left 7.5 x 3.2 cm left perihilar mass back in October,. Follow-up PET scan was compatible with primary left upper lung malignancy with metastatic disease to the contralateral lung, the mediastinum, left neck, left pleural with associated malignant effusion, and within the liver. Did undergo navigational robotic bronchoscopy 12/17/2023 consistent with metastatic non-small cell lung cancer/pulmonary adenocarcinoma. Patient has been started on a combination of Keytruda/carboplatin/Alimta. Follow-up chest CTA done this admission consistent with disease progression. Right upper quadrant pain, likely secondary to hepatic metastases Moderate to severe chronic obstructive pulmonary disease, with an FEV1 50% of predicted Chronic hypoxemic respiratory failure, secondary to a combination of above Former tobacco dependence, recently quit after her diagnosis of lung cancer Plan Pleurx catheter was inserted on 04/13/2024 and the patient 500 cc of pleural fluid drained, another drainage was done today on 04/15/2024 with a total of 150 cc of fluid was aspirated. Persistent volume loss in the left lung base on today's chest x-ray Continue bronchodilators and steroids Oxygenation is stable at 4 liters stable to nasal cannula Prognosis poor. CODE STATUS needs to be established.
--- NOTE | 2024-04-16 12:54 | P.PN ---
Subjective Progress Note Date: 04/16/24 68-year-old female patient with metastatic pulmonary adenocarcinoma. The patient is well-known to me. established diagnosis back in December. At that time, the patient had a large left upper lobe mass and a right upper lobe pulmonary nodule and mediastinal lymphadenopathy. Bronchoscopy and biopsy of the left upper lobe mass and right upper lobe mass and subcarinal lymph nodes were all positive for pulm adenocarcinoma. The patient was referred to medical oncology and the patient was started on systemic treatment and the patient is currently receiving a combination of carboplatinum, Alimta and Keytruda. She has already completed 3 sessions of systemic chemotherapy. She was in the emergency department and in the hospital in February 2024. At that time, the patient was found to have a large left-sided pleural effusion. Thoracentesis was done and a total of 700 cc of pleural fluid was aspirated. The fluid was nonmalignant and based on the chemistry, it was an exudate with a high protein level. The patient felt better and the patient was discharged home. She was seen in the office and she was doing well and she was thought to have symptoms of COPD exacerbation. She was treated accordingly. The patient came into the emergency department yesterday because of worsening shortness of breath. On her chest x-ray, there is a large left-sided pleural effusion consistent with recurrent pleural effusion. She is quite short of breath and she is currently on 100% nonrebreather facemask. She is hemodynamically stable. Cardiac rhythm is sinus. Normotensive at this point in time. The blood work shows a white cell count of 8.3 with hemoglobin 15 and a platelet count of 288. Troponins are negative. The rest of the chemistry is still pending. She is known to have COPD. Her FEV1 is noted of 57% of predicted with significantly impaired diffusion capacity. She has been maintained on Advair and on outpatient basis in addition to albuterol updrafts. On a separate note, she has been complaining of a right upper quadrant pain. LFTs are still pending. Ultrasound of the righ t upper quadrant and gallbladder is in progress. She is known to have also hepatic metastases with at least 5 lesions noted on the PET scan that was done in December 2023 involving the right hepatic lobe. On today's evaluation of 04/14/2024, the patient is less short of breath and she is currently on 4 L of oxygen by nasal cannula. No other specific complaints. The chest x-ray following the Pleurx catheter insertion showed volume loss in the left lung, nevertheless, the overall aeration is improved. Noted at the time of the procedure, the patient has a total of 500 cc of serous fluid drained. She has no other new complaints for now. BUN is 11 with a creatinine of 0.29. The white cell count is at 5.3 with a hemoglobin 10.7 and platelet count of 233. Will obtain a follow-up chest x-ray in a.m. Afebrile. Hemodynamically stable. Maintained on Symbicort and DuoNeb up chest. Maintained on IV Solu-Medrol regarding her COPD exacerbation. 04/15/2024, the patient is stable. Repeat chest x-ray was done today and the patient was found to have volume loss in the left hemithorax with underlying left-sided pleural effusion/atelectasis. Pleurx catheter was seen in place. Drainage of the pleural fluid was done through the Pleurx catheter and a total of 150 cc of fluid was obtained. The patient is stable on 40s of oxygen by nasal cannula pulse ox 96%. She is also on a combination of bronchodilators and Symbicort as maintenance and IV Solu-Medrol 60 mg every 6 hours. Less bronchosp astic and wheezy. The white cell count is 6.3 with a hemoglobin 9.9 and platelet count of 248. BUN is 10 with a creatinine 0.4 and sodium levels at 138. On 04/16/2024, seen the patient for a follow up. Continues to have issues with cough and congestion wheezing basis of the exacerbation. Last fluid drainage was done yesterday with a total of 150 cc of fluid aspirated. Remains on Symbicort. Remains on DuoNeb. Remains on IV Solu-Medrol. No altered mentation. She is having some pain which is essentially a chronic problem. BUN is at 10 mg of 0.4. White cell count is 6.3. She is also encountering some insomnia. Objective - Vital Signs Vital signs: Vital Signs Temp 98.1 F 04/16/24 07:30 Pulse 92 04/16/24 07:59 Resp 16 04/16/24 07:30 BP 136/72 04/16/24 07:30 Pulse Ox 97 04/16/24 07:48 FiO2 Intake & Output 04/15/24 04/16/24 04/16/24 18:59 06:59 18:59 Intake Total 240 480 Balance 240 480 Weight 51.5 kg Intake: Intake, IV Titration 240 Amount Sodium Chloride 0.9% 1, 240 000 ml @ 20 mls/hr IV . Q24H [facility] Rx#:[id number] Oral 480 Other: Voiding Method Bedside Commode # Voids 3 1 - Exam GENERAL EXAM: Alert, 68-year-old white female, frail and cachectic, fairly comfortable in no apparent distress. The patient is currently on 100% nonrebreather facemask. Lethargic is arousable. She communicates. Continue using accessory muscles of breathing at this point in time. HEAD: Normocephalic and atraumatic EYES: Normal reaction of pupils, equal size. NOSE: Clear with pink turbinates. THROAT: No erythema or exudates. NECK: No masses, no JVD. CHEST: No chest wall deformity. LUNGS: On equal air entry with scattered rhonchi and right sided inspiratory wheeze. Improved aeration of the left lung and the patient has a Pleurx catheter in the left. CVS: S1 and S2 normal with no audible murmur, regular rhythm. No extra heart sounds ABDOMEN: No hepatosplenomegaly, active bowel sounds, no guarding or rigidity. Direct tenderness in the right upper quadrant. SPINE: No scoliosis or deformity SKIN: No rashes CENTRAL NERVOUS SYSTEM: No focal deficits, tone is normal in all 4 extremities. EXTREMITIES: There is no peripheral edema, clubbing, or cyanosis. Peripheral pulses are intact. - Labs CBC & Chem 7: 04/15/24 04:15 04/15/24 04:15 Assessment and Plan Plan: Acute hypoxic respiratory failure. The patient is chronically hypoxic maintained on 2 L of oxygen by nasal cannula. She comes in with worsening shortness of breath and hypoxemic respiratory failure patient is currently on 10 0% nonrebreather facemask with a pulse ox of 99%. Chest x-ray showing a large left-sided pleural effusion. At the same time, the patient has obvious signs of an acute COPD exacerbation and she is actively bronchospastic and wheezy. However, the decomposition is probably related to the recurrent large left-sided pleural effusion, left Pleurx catheter was inserted and the patient had 500 cc of fluid drained in the operating room and another 150 cc of fluid was drained today on 04/15/2024. Left-sided pleural effusion, exudate, post Pleurx catheter insertion Shortness of breath secondary to above, improving Stage IV metastatic lung adenocarcinoma, patient found to have a left 7.5 x 3.2 cm left perihilar mass back in October,. Follow-up PET scan was compatible with primary left upper lung malignancy with metastatic disease to the contralateral lung, the mediastinum, left neck, left pleural with associated malignant effusion, and within the liver. Did undergo navigational robotic b ronchoscopy 12/17/2023 consistent with metastatic non-small cell lung cancer/pulmonary adenocarcinoma. Patient has been started on a combination of Keytruda/carboplatin/Alimta. Follow-up chest CTA done this admission consistent with disease progression. Right upper quadrant pain, likely secondary to hepatic metastases Moderate to severe chronic obstructive pulmonary disease, with an FEV1 50% of predicted Chronic hypoxemic respiratory failure, secondary to a combination of above Former tobacco dependence, recently quit after her diagnosis of lung cancer Plan Will add Ambien for sleep. Pleurx catheter was inserted on 04/13/2024 and the patient 500 cc of pleural fluid drained, another drainage was done today on 04/15/2024 with a total of 150 cc of fluid was aspirated. Persistent volume loss in the left lung base on today's chest x-ray Continue bronchodilators and steroids as the patient continues to have active symptoms of COPD exacerbation. Will continue same regimen for now. Oxygenation is stable at 4 liters stable to nasal cannula Prognosis poor. CODE STATUS needs to be established.
--- NOTE | 2024-04-16 16:19 | P.PN ---
Subjective Progress Note Date: 04/16/24 Hospital Course: Patient is a very pleasant 68-year-old female with a past medical history of chronic hypoxic respiratory failure home oxygen dependent on 2 L at all times secondary to stage IV metastatic non-small cell lung cancer currently undergoing chemotherapy and radiation treatment with Dr. Boyd with last reported treatment being 03/25/2024. Patient presented to the emergency department at [facility] for a chief complaint of right-sided chest pain and and worsening shortness of breath on 04/13/2024. Patient was found to be in acute on chronic respiratory failure with hypoxia and transferred to our facility for further evaluation. She was admitted under our services with consultations to pulmonology, cardiology, and oncology. After evaluation by pulmonology, cardiothoracic surgery was consulted for placement of left-sided Pleurx catheter which was placed on 04/13/2024. Data and Imaging completed at [facility] revealsed: -Chest x-ray was completed showing extensive coarse interstitial markings with a dense opacity in the left suprahilar region. -CTA chest completed negative for acute pulmonary emboli showing pulmonary emphysema with left suprahilar masslike opacity with likely postobstructive atelectasis or pneumonia measuring approximately 1.6 x 3.8 cm with moderate left pleural effusion and suspected mucous plugging and atelectasis in the left lower lobe with interlobular septal thickening along with defined lesions in the liver measuring up to 2.2 cm and the left and right lobes. -EKG completed and reviewed showing normal sinus rhythm at 93 bpm with no noted T wave or ST abnormalities upon personal review and interpretation. -Labs were completed and reviewed. CBC showing a WBC count of 6.7, hemoglobin of 11.2 and platelet count of 194. Coagulation profile showing PT 9.6, INR 0.90, and PTT of 22.5. BMP showing sodium 134, potassium 4.6, chloride 100, bicarb 25, anion gap of 9 and renal function showing BUN 9, creatinine 0.4, and GFR of 159. Liver profile was unremarkable. Magnesium normal findings at 1.9. Creatinine kidneys 76. Troponin negative at less than 0.05 and BNP was 25. -RSV, influenza A, and influenza B were negative. Data and Imaging completed at our facility includes: -Vital signs upon arrival to our facility patient was on nonrebreather oxygen mask at 15 L with SpO2 of 99%. Remainder of vital signs as follows blood pressure 121/60, heart rate 117, respiratory rate 20, and temp 98.0 F. -EKG was completed showing sinus tachycardia at 111 bpm with no noted T wave or ST abnormalities showing no signs of acute ischemia. -Repeat troponin was also negative at less than 0.012. -Abdominal/Gallbladder ultrasound completed radiology report stating patient's known hepatic masses are not well-demonstrated by ultrasound reporting a vague 2.0 cm each echogenic area in the right upper liver lobe, no gallstones, and bile duct is reported to be borderline to mildly dilated at 7 mm. -Echocardiogram completed showing preserved EF of 55 to 60% with trace mitral regurgitation and small pericardial effusion. Physical exam: Vital signs reviewed and stable. General: Nontoxic, no distress and appears stated age. Derm: Skin warm and dry, normal coloration for ethnicity. Head: Atraumatic, normocephalic and symmetric. Eyes: EOMs intact, no lid lag, and anicteric sclera Mouth: no lip lesions, mucus membranes moist Cardiovascular: regular rate and rhythm with normal S1S2, no murmur, positive posterior tibial pulses bilaterally, and cap refill < 2 seconds. Lungs: Respirations even, regular, and unlabored on 4L O2 via nasal cannula. Lungs diminished with diffuse expiratory wheezes noted. Pleurx catheter left chest. Abdominal: soft, tenderness reported to palpation right upper quadrant. No guarding, no appreciable organomegaly Ext: ROM intact. No gross muscle atrophy, no edema, no contractures Neuro: Speech clear, face symmetrical and CN II-XII grossly intact with no noted focal neuro deficits Psych: Alert and oriented to person, place, time, and situation. Appropriate and pleasant affect. Assessment and Plan of Care: Acute on chronic respiratory failure with hypoxia Large Left-sided pleural effusion, status post Pleurx catheter placement Emphysema, bronchitis, and bronchiectasis with multifocal mucous plugging rep orted on CT Stage IV metastatic non-small cell lung cancer Right-sided chest pain/right upper quadrant pain History of nicotine dependence -Pulmonology following, reviewed documentation in chart. -Cardiothoracic surgery following, placed Pleurx catheter on 04/13/2024. -Cardiology following and discussed case with rater associate and cardiac TRAFFIC MONITOR SPECIALIST. -Oncology following and discussed plan of care with oncologist. Patient undergoing chemotherapy treatment today. -Continue supplemental oxygen and to be administered and titrated as needed to maintain SPO2 equal to or greater than 90%. Patient on baseline O2 of 2 L and currently has been weaned down to 4 L. -Continuous telemetry monitoring. -Monitor pulse-oximetry -Duonebs scheduled 4 times daily and as needed for SOB and/or wheezing -Incentive Spirometry -Steroids: Solu-Medrol 60 mg IVP every 8 hours -Continue Symbicort 160-4.5 mcg inhaler 2 puffs twice daily. -Abdominal/Gallbladder ultrasound completed radiology report stating patient's known hepatic masses are not well-demonstrated by ultrasound reporting a vague 2.0 cm each echogenic area in the right upper liver lobe, no gallstones, and bile duct is reported to be borderline to mildly dilated at 7 mm. -Echocardiogram completed showing preserved EF of 55 to 60% with trace mitral regurgitation and small pericardial effusion. Data and imaging reviewed on today's exam: -Vital signs reviewed. Blood pressure 136/72, heart rate 97, respiratory rate 16, temp 98.1 F, and SpO2 of 95% on 4 L.. -Morning labs reviewed. CBC showing stable normocytic anemia with hemoglobin of 9.9. BMP unremarkable. Blood glucose 137. Magnesium normal findings at 2.0. Liver profile showing hypoalbuminemia with albumin of 3.4 and low protein of 5.8. CODE STATUS: Full code DVT prophylaxis: Heparin Anticipated discharge date: Pending clinical course Anticipated discharge place: Pending clinical course, likely need placement in SNF Patient was seen independently by Nurse Practitioner. This document was prepared using [employer] dictation software. Please allow for errors in director of vocational guidance while rare they do occur. I reviewed the documentation as provided by the ELIGIO above, who is the original author of this note. I agree with the documented assessment and plan, with the following changes: none Objective - Vital Signs Vital signs: Vital Signs Temp 98.1 F 04/16/24 07:30 Pulse 92 04/16/24 07:59 Resp 16 04/16/24 07:30 BP 136/72 04/16/24 07:30 Pulse Ox 97 04/16/24 07:48 FiO2 Intake & Output 04/15/24 04/16/24 04/16/24 18:59 06:59 18:59 Intake Total 240 Balance 240 Weight 51.5 kg Intake: Intake, IV Titration 240 Amount Sodium Chloride 0.9% 1, 240 000 ml @ 20 mls/hr IV . Q24H [facility] Rx#:[id number] Other: Voiding Method Bedside Commode # Voids 3 1 - Labs CBC & Chem 7: 04/17/24 05:50 04/17/24 05:47 Labs: Abnormal Lab Results - Last 24 Hours (Table) 04/15/24 Range/Units 04:15 Creatinine 0.4 L (0.6-1.5) mg/dL BUN/Creatinine Ratio 25.00 H (12.00-20.00) Ratio Glucose 137 H (70-110) mg/dL Total Bilirubin <0.2 L (0.3-1.2) mg/dL Total Protein 5.8 L (6.2-8.2) g/dL Albumin 3.4 L (3.8-4.9) g/dL Albumin/Globulin Ratio 1.42 L (1.60-3.17) Ratio
[2024-04-16] MEDS: ZOLPIDEM 5 MG TAB PO SCH (22:50)
[2024-04-17 09:56] LABS: HCT 31.6 % (37.2-46.3); HGB 10.8 g/dL (12.0-15.0); MCH 30.7 pg (27.0-32.0); MCHC 34.2 g/dL (32.0-37.0); MCV 89.8 FL (80.0-97.0); Mean Platelet Volume 9.4 FL (9.5-12.2); NRBC Per 100 WBC 0.06 X 10*3/uL (0.00-0.01); Platelet Count 290 X 10*3/uL (140-440); RBC 3.52 X 10*6/uL (4.10-5.20); RDW 16.9 % (11.5-14.5); WBC 6.21 X 10*3/uL (4.50-10.00)
[2024-04-17 09:58] LABS: Magnesium 1.9 mg/dL (1.5-2.4)
[2024-04-17 11:22] LABS: ALT 37 U/L (8-44); AST 32 U/L (13-35); Albumin 3.5 g/dL (3.8-4.9); Alkaline Phosphatase 87 U/L (41-126); Blood Urea Nitrogen 10.4 mg/dL (9.0-27.0); Calcium 9.4 mg/dL (8.7-10.3); Carbon Dioxide 27.8 mmol/L (21.6-31.8); Chloride 95 mmol/L (96-109); Globulin 2.5 g/dL (1.6-3.3); Glucose 156 mg/dL (70-110); Sodium 136 mmol/L (135-145); Total Bilirubin 0.2 mg/dL (0.3-1.2)
[2024-04-17] MEDS ORDERED: ALPRAZolam 0.5 MG TAB PO PRN (12:44)
--- NOTE | 2024-04-17 12:55 | P.PN ---
Subjective Progress Note Date: 04/17/24 Hospital Course: Patient is a very pleasant 68-year-old female with a past medical history of chronic hypoxic respiratory failure home oxygen dependent on 2 L at all times secondary to stage IV metastatic non-small cell lung cancer currently undergoing chemotherapy and radiation treatment with Dr. Boyd with last reported treatment being 03/25/2024. Patient presented to the emergency department at [facility] for a chief complaint of right-sided chest pain and and worsening shortness of breath on 04/13/2024. Patient was found to be in acute on chronic respiratory failure with hypoxia and transferred to our facility for further evaluation. She was admitted under our services with consultations to pulmonology, cardiology, and oncology. After evaluation by pulmonology, cardiothoracic surgery was consulted for placement of left-sided Pleurx catheter which was placed on 04/13/2024. Data and Imaging completed at [facility] revealsed: -Chest x-ray was completed showing extensive coarse interstitial markings with a dense opacity in the left suprahilar region. -CTA chest completed negative for acute pulmonary emboli showing pulmonary emphysema with left suprahilar masslike opacity with likely postobstructive atelectasis or pneumonia measuring approximately 1.6 x 3.8 cm with moderate left pleural effusion and suspected mucous plugging and atelectasis in the left lower lobe with interlobular septal thickening along with defined lesions in the liver measuring up to 2.2 cm and the left and right lobes. -EKG completed and reviewed showing normal sinus rhythm at 93 bpm with no noted T wave or ST abnormalities upon personal review and interpretation. -Labs were completed and reviewed. CBC showing a WBC count of 6.7, hemoglobin of 11.2 and platelet count of 194. Coagulation profile showing PT 9.6, INR 0.90, and PTT of 22.5. BMP showing sodium 134, potassium 4.6, chloride 100, bicarb 25, anion gap of 9 and renal function showing BUN 9, creatinine 0.4, and GFR of 159. Liver profile was unremarkable. Magnesium normal findings at 1.9. Creatinine kidneys 76. Troponin negative at less than 0.05 and BNP was 25. -RSV, influenza A, and influenza B were negative. Data and Imaging completed at our facility includes: -Vital signs upon arrival to our facility patient was on nonrebreather oxygen mask at 15 L with SpO2 of 99%. Remainder of vital signs as follows blood pressure 121/60, heart rate 117, respiratory rate 20, and temp 98.0 F. -EKG was completed showing sinus tachycardia at 111 bpm with no noted T wave or ST abnormalities showing no signs of acute ischemia. -Repeat troponin was also negative at less than 0.012. -Abdominal/Gallbladder ultrasound completed radiology report stating patient's known hepatic masses are not well-demonstrated by ultrasound reporting a vague 2.0 cm each echogenic area in the right upper liver lobe, no gallstones, and bile duct is reported to be borderline to mildly dilated at 7 mm. -Echocardiogram completed showing preserved EF of 55 to 60% with trace mitral regurgitation and small pericardial effusion. Physical exam: Patient seen and fully evaluated at bedside this morning. Patient reports feeling anxious and order placed for Xanax 0.5 mg as needed for anxiety. Patient and nursing staff reports patient continues to desaturate quickly with minimal movement such as getting up to the bedside commode. Patient to slowly increase activity while monitoring closely for oxygen desaturation. Patient reports continued shortness of breath with minimal to no improvement otherwise denies any other complaints at this time. Vital signs reviewed and stable. General: Nontoxic, no distress and appears stated age. Derm: Skin warm and dry, normal coloration for ethnicity. Head: Atraumatic, normocephalic and symmetric. Eyes: EOMs intact, no lid lag, and anicteric sclera Mouth: no lip lesions, mucus membranes moist Cardiovascular: regular rate and rhythm with normal S1S2, no murmur, positive posterior tibial pulses bilaterally, and cap refill < 2 seconds. Lungs: Respirations even, regular, and unlabored on 4L O2 via nasal cannula. Lungs diminished with diffuse expiratory wheezes noted. Pleurx catheter left chest. Abdominal: soft, tenderness reported to palpation right upper quadrant. No guarding, no appreciable organomegaly Ext: ROM intact. No gross muscle atrophy, no edema, no contractures Neuro: Speech clear, face symmetrical and CN II-XII grossly intact with no noted focal neuro deficits Psych: Alert and oriented to person, place, time, and situation. Appropriate and pleasant affect. Assessment and Plan of Care: Acute on chronic respiratory failure with hypoxia Large Left-sided pleural effusion, status post Pleurx catheter placement Emphysema, bronchitis, and bronchiectasis with multifocal mucous plugging reported on CT Stage IV metastatic non-small cell lung cancer Right-sided chest pain/right upper quadrant pain History of nicotine dependence -Pulmonology following, reviewed documentation in chart. -Cardiothoracic surgery following, placed Pleurx catheter on 04/13/2024. -Cardiology following and discussed case with auto radiator mechanic and cardiac INVENTORY ASSOCIATE. -Oncology following and discussed plan of care with oncologist. Patient undergoing chemotherapy treatment today. -Continue supplemental oxygen and to be administered and titrated as needed to maintain SPO2 equal to or greater than 90%. Patient on baseline O2 of 2 L and currently has been weaned down to 4 L. -Continuous telemetry monitoring. -Monitor pulse-oximetry -Duonebs scheduled 4 times daily and as needed for SOB and/or wheezing -Incentive Spirometry -Steroids: Solu-Medrol 60 mg IVP every 8 hours -Continue Symbicort 160-4.5 mcg inhaler 2 puffs twice daily. -Abdominal/Gallbladder ultrasound completed radiology report stating patient's known hepatic masses are not well-demonstrated by ultrasound reporting a vague 2.0 cm each echogenic area in the right upper liver lobe, no gallstones, and bile duct is reported to be borderline to mildly dilated at 7 mm. -Echocardiogram completed showing preserved EF of 55 to 60% with trace mitral regurgitation and small pericardial effusion. Data and imaging reviewed on today's exam: -Vital signs reviewed. Blood pressure 124/74, heart rate 112, respiratory rate 16, temp 98.2 F, and SpO2 of 92% on 4 L. -Morning labs reviewed. CBC showing stable normocytic anemia with hemoglobin of 10.8. BMP showing mild hypochloremia with chloride of 95 slightly elevated anion gap of 13.20.. Blood glucose 156. Magnesium normal findings at 1.9. Liver profile showing hypoalbuminemia with albumin of 3.5 and low protein of 6.0. Discussed with nursing staff and order placed for physician to RN communication and to encourage increase of activity with patient supervised and recommending patient out of bed with all meals. Monitor closely for oxygen desaturation with activity. CODE STATUS: Full code DVT prophylaxis: Heparin Anticipated discharge date: Pending clinical course Anticipated discharge place: Pending clinical course, likely need placement in SNF Patient was seen independently by Nurse Practitioner. This document was prepared using [employer] dictation software. Please allow for errors in oyster grower while rare they do occur. I reviewed the documentation as provided by the ELIGIO above, who is the original author of this note. I agree with the documented assessment and plan, with the following changes: none Objective - Vital Signs Vital signs: Vital Signs Temp 98.2 F 04/17/24 07:32 Pulse 100 04/17/24 09:05 Resp 16 04/17/24 07:32 BP 124/74 04/17/24 07:32 Pulse Ox 93 L 04/17/24 08:56 FiO2 Intake & Output 04/16/24 04/17/24 04/17/24 18:59 06:59 18:59 Intake Total 1080 Balance 1080 Weight 46.7 kg Intake: Intake, IV Titration 120 Amount Sodium Chloride 0.9% 1, 120 000 ml @ 20 mls/hr IV . Q24H [facility] Rx#:[id number] Oral 960 Other: Voiding Method Bedside Commode # Voids 1 3 # Bowel Movements 2 - Labs CBC & Chem 7: 04/17/24 05:50 04/17/24 05:47
--- NOTE | 2024-04-17 13:07 | P.PN ---
Subjective Progress Note Date: 04/17/24 Principal diagnosis: Metastatic adenocarcinoma of the lung -Afebrile, no acute events overnight -Notes intermittent dyspnea, but denies any new signs or symptoms -She is unsure if she is felt significant difference since having placement of left Pleurx catheter Objective - Vital Signs Vital signs: Vital Signs Temp 98.2 F 04/17/24 07:32 Pulse 104 H 04/17/24 12:16 Resp 16 04/17/24 07:32 BP 124/74 04/17/24 07:32 Pulse Ox 93 L 04/17/24 08:56 FiO2 Intake & Output 04/16/24 04/17/24 04/17/24 18:59 06:59 18:59 Intake Total 1080 Balance 1080 Weight 46.7 kg Intake: Intake, IV Titration 120 Amount Sodium Chloride 0.9% 1, 120 000 ml @ 20 mls/hr IV . Q24H [facility] Rx#:[id number] Oral 960 Other: Voiding Method Bedside Commode Bedside Commode # Voids 1 3 # Bowel Movements 2 - Constitutional General appearance: Present: cooperative, no acute distress - EENT Eyes: Present: EOMI - Respiratory Respiratory: left: diminished (Diminished breath sounds in the left lung base) - Cardiovascular Rhythm: regular - Gastrointestinal General gastrointestinal: Present: soft. Absent: distended - Integumentary Integumentary: Present: pale. Absent: rash - Neurologic Neurologic: Present: CNII-XII intact. Absent: focal deficits - Labs CBC & Chem 7: 04/17/24 05:50 04/17/24 05:47 Labs: Abnormal Lab Results - Last 24 Hours (Table) 04/17/24 04/17/24 Range/Units 05:47 05:50 RBC 3.52 L (4.10-5.20) X 10*6/uL Hgb 10.8 L (12.0-15.0) g/dL Hct 31.6 L (37.2-46.3) % RDW 16.9 H (11.5-14.5) % MPV 9.4 L (9.5-12.2) FL NRBC/100 WBC Diff 0.06 H (0.00-0.01) X 10*3/uL Chloride 95 L (96-109) mmol/L Anion Gap 13.20 H (4.00-12.00) mmol/L Creatinine 0.4 L (0.6-1.5) mg/dL BUN/Creatinine Ratio 26.00 H (12.00-20.00) Ratio Glucose 156 H (70-110) mg/dL Total Bilirubin 0.2 L (0.3-1.2) mg/dL Total Protein 6.0 L (6.2-8.2) g/dL Albumin 3.5 L (3.8-4.9) g/dL Albumin/Globulin Ratio 1.40 L (1.60-3.17) Ratio Assessment and Plan (1) Adenocarcinoma of lung, stage 4 Current Visit: Yes Status: Acute Code(s): C34.90 - MALIGNANT NEOPLASM OF UNSP PART OF UNSP BRONCHUS OR LUNG SNOMED Code(s): 250334928 (2) Pleural effusion Current Visit: Yes Status: Acute Code(s): J90 - PLEURAL EFFUSION, NOT ELSEWHERE CLASSIFIED SNOMED Code(s): 88041361 Plan: Hypoxia -Multifactoral-malignancy, COPD, and recurrent, worsening pleural effusion -Chest x-ray is revealed moderate left and trace right pleural effusions, pul monary vascular congestion -Pleurx catheter placed on 04/13/2024 draining 500 cc. Subsequent drainage on 04/15/2024 drained 150 cc -No cytology from pleural fluid has been sent -We will plan to order cytology with the next drainage from the Pleurx catheter Non-small cell lung cancer, high TMB -Patient is status post 3 cycles of carboplatin/Alimta/Keytruda with cycle 3 on 03/25/2024. She has tolerated treatment without any significant toxicities -She is due for treatment restaging scans -As she has remained inpatient, restaging CT scans have been ordered today -Additional management recommendations will be considered based on results of imaging Chest pain -Cardiology consulted with no acute recommendations inpatient and have signed off Benita Mccall MD
--- NOTE | 2024-04-17 13:12 | P.PN ---
Subjective Progress Note Date: 04/17/24 68-year-old female patient with metastatic pulmonary adenocarcinoma. The patient is well-known to me. established diagnosis back in December. At that time, the patient had a large left upper lobe mass and a right upper lobe pulmonary nodule and mediastinal lymphadenopathy. Bronchoscopy and biopsy of the left upper lobe mass and right upper lobe mass and subcarinal lymph nodes were all positive for pulm adenocarcinoma. The patient was referred to medical oncology and the patient was started on systemic treatment and the patient is currently receiving a combination of carboplatinum, Alimta and Keytruda. She has already completed 3 sessions of systemic chemotherapy. She was in the emergency department and in the hospital in February 2024. At that time, the patient was found to have a large left-sided pleural effusion. Thoracentesis was done and a total of 700 cc of pleural fluid was aspirated. The fluid was nonmalignant and based on the chemistry, it was an exudate with a high protein level. The patient felt better and the patient was discharged home. She was seen in the office and she was doing well and she was thought to have symptoms of COPD exacerbation. She was treated accordingly. The patient came into the emergency department yesterday because of worsening shortness of breath. On her chest x-ray, there is a large left-sided pleural effusion consistent with recurrent pleural effusion. She is quite short of breath and she is currently on 100% nonrebreather facemask. She is hemodynamically stable. Cardiac rhythm is sinus. Normotensive at this point in time. The blood work shows a white cell count of 8.3 with hemoglobin 15 and a platelet count of 288. Troponins are negative. The rest of the chemistry is still pending. She is known to have COPD. Her FEV1 is noted of 57% of predicted with significantly impaired diffusion capacity. She has been maintained on Advair and on outpatient basis in addition to albuterol updrafts. On a separate note, she has been complaining of a right upper quadrant pain. LFTs are still pending. Ultrasound of the righ t upper quadrant and gallbladder is in progress. She is known to have also hepatic metastases with at least 5 lesions noted on the PET scan that was done in December 2023 involving the right hepatic lobe. On today's evaluation of 04/14/2024, the patient is less short of breath and she is currently on 4 L of oxygen by nasal cannula. No other specific complaints. The chest x-ray following the Pleurx catheter insertion showed volume loss in the left lung, nevertheless, the overall aeration is improved. Noted at the time of the procedure, the patient has a total of 500 cc of serous fluid drained. She has no other new complaints for now. BUN is 11 with a creatinine of 0.29. The white cell count is at 5.3 with a hemoglobin 10.7 and platelet count of 233. Will obtain a follow-up chest x-ray in a.m. Afebrile. Hemodynamically stable. Maintained on Symbicort and DuoNeb up chest. Maintained on IV Solu-Medrol regarding her COPD exacerbation. 04/15/2024, the patient is stable. Repeat chest x-ray was done today and the patient was found to have volume loss in the left hemithorax with underlying left-sided pleural effusion/atelectasis. Pleurx catheter was seen in place. Drainage of the pleural fluid was done through the Pleurx catheter and a total of 150 cc of fluid was obtained. The patient is stable on 40s of oxygen by nasal cannula pulse ox 96%. She is also on a combination of bronchodilators and Symbicort as maintenance and IV Solu-Medrol 60 mg every 6 hours. Less bronchosp astic and wheezy. The white cell count is 6.3 with a hemoglobin 9.9 and platelet count of 248. BUN is 10 with a creatinine 0.4 and sodium levels at 138. On 04/16/2024, seen the patient for a follow up. Continues to have issues with cough and congestion wheezing basis of the exacerbation. Last fluid drainage was done yesterday with a total of 150 cc of fluid aspirated. Remains on Symbicort. Remains on DuoNeb. Remains on IV Solu-Medrol. No altered mentation. She is having some pain which is essentially a chronic problem. BUN is at 10 mg of 0.4. White cell count is 6.3. She is also encountering some insomnia. 04/17/2024, the patient is being seen for a follow-up. Slightly improved compared to yesterday and less bronchospastic and wheezy. No new complaints otherwise. Remains on bronchodilators and steroids. Last Pleurx catheter drainage was done on 04/15/2024 with limited amount of output. Another therapy session will be done tomorrow. White cell count 6.2 coming with 10.8 and a platelet count of 290. Sodium is at 136 with a potassium level of 5, BUN is 10 with a creatinine of 0.4. No other significant events overnight. Objective - Vital Signs Vital signs: Vital Signs Temp 98.2 F 04/17/24 07:32 Pulse 100 04/17/24 09:05 Resp 16 04/17/24 07:32 BP 124/74 04/17/24 07:32 Pulse Ox 93 L 04/17/24 08:56 FiO2 Intake & Output 04/16/24 04/17/24 04/17/24 18:59 06:59 18:59 Intake Total 1080 Balance 1080 Weight 46.7 kg Intake: Intake, IV Titration 120 Amount Sodium Chloride 0.9% 1, 120 000 ml @ 20 mls/hr IV . Q24H [facility] Rx#:[id number] Oral 960 Other: Voiding Method Bedside Commode # Voids 1 3 # Bowel Movements 2 - Exam GENERAL EXAM: Alert, 68-year-old white female, frail and cachectic, fairly comfortable in no apparent distress. The patient is currently on 100% nonrebreather facemask. Lethargic is arousable. She communicates. Continue using accessory muscles of breathing at this point in time. HEAD: Normocephalic and atraumatic EYES: Normal reaction of pupils, equal size. NOSE: Clear with pink turbinates. THROAT: No erythema or exudates. NECK: No masses, no JVD. CHEST: No chest wall deformity. LUNGS: On equal air entry with scattered rhonchi and right sided inspiratory wheeze. Improved aeration of the left lung and the patient has a Pleurx catheter in the left. CVS: S1 and S2 normal with no audible murmur, regular rhythm. No extra heart sounds ABDOMEN: No hepatosplenomegaly, active bowel sounds, no guarding or rigidity. Direct tenderness in the right upper quadrant. SPINE: No scoliosis or deformity SKIN: No rashes CENTRAL NERVOUS SYSTEM: No focal deficits, tone is normal in all 4 extremities. EXTREMITIES: There is no peripheral edema, clubbing, or cyanosis. Peripheral pulses are intact. - Labs CBC & Chem 7: 04/17/24 05:50 04/17/24 05:47 Labs: Abnormal Lab Results - Last 24 Hours (Table) 04/17/24 Range/Units 05:50 RBC 3.52 L (4.10-5.20) X 10*6/uL Hgb 10.8 L (12.0-15.0) g/dL Hct 31.6 L (37.2-46.3) % RDW 16.9 H (11.5-14.5) % MPV 9.4 L (9.5-12.2) FL NRBC/100 WBC Diff 0.06 H (0.00-0.01) X 10*3/uL Assessment and Plan Plan: Acute hypoxic respiratory failure. The patient is chronically hypoxic maintained on 4 L of oxygen by nasal cannula. the patient had obvious signs of an acute COPD exacerbation and she is actively bronchospastic and wheezy. However, the decomposition is probably related to the recurrent large left-sided pleural effusion, left Pleurx catheter was inserted and the patient had 500 cc of fluid drained in the operating room and another 150 cc of fluid was drained today on 04/15/2024. Clinically improving the patient seems to be less short of breath. Left-sided pleural effusion, exudate, post Pleurx catheter insertion Shortness of breath secondary to above, improving Stage IV metastatic lung adenocarcinoma, patient found to have a left 7.5 x 3.2 cm left perihilar mass back in October,. Follow-up PET scan was compatible with primary left upper lung malignancy with metastatic disease to the contralateral lung, the mediastinum, left neck, left pleural with associated malignant effusion, and within the liver. Did undergo navigational robotic bronchoscopy 12/17/2023 consistent with metastatic non-small cell lung cancer/pulmonary adenocarcinoma. Patient has been started on a combination of Keytruda/carboplatin/Alimta. Follow-up chest CTA done this admission consistent with disease progression. Right upper quadrant pain, likely secondary to hepatic metastases Moderate to severe chronic obstructive pulmonary disease, with an FEV1 50% of predicted Chronic hypoxemic respiratory failure, secondary to a combination of above Former tobacco dependence, recently quit after her diagnosis of lung cancer Plan Pleurx catheter was inserted on 04/13/2024 and the patient 500 cc of pleural fluid drained, another drainage was done today on 04/15/2024 with a total of 150 cc of fluid was aspirated. Another drain is to be done tomorrow. Persistent volume loss in the left lung base Continue bronchodilators and steroids as the patient continues to have active symptoms of COPD exacerbation. Will continue same regimen for now. Oxygenation is stable at 4 liters stable to nasal cannula Keep the patient IV Solu-Medrol Prognosis poor. CODE STATUS needs to be established.
[2024-04-17] MEDS: ALPRAZolam 0.5 MG TAB PO PRN (13:27)
--- NOTE | 2024-04-17 13:51 | CT ---
EXAMINATION TYPE: CT ChestAbdPelvis w con CT DLP: 446.1 mGycm, Automated exposure control for dose reduction was used. DATE OF EXAM: 04/17/2024 1:20 PM COMPARISON: 12/10/2023 CLINICAL INDICATION:Female, 68 years old with history of Lung cancer, assessing tx response; H, risa g cancer. obs for mets Technique: CT ChestAbdPelvis w con; Multiple axial images were obtained. Two-dimensional coronal and sagittal reconstructions were obtained. Contrast used:100 cc mL of Isovue 300 with IV Contrast, Oral contrast used: without Oral Contrast Findings: CHEST: LUNGS/ PLEURA: Small left pleural effusion with associated consolidation atelectasis and airspace opa cities. Left chest while thoracotomy tube terminating in the left lung apex with hydropneumothorax on the left. Intralobular septal thickening of the left lung. Chronic interstitial changes in the right lung. AIRWAY: Patent and unremarkable. HEART: Size within normal limits. MEDIASTINUM: Leftward shift of the mediastinum. No enlarged lymph nodes identified.. VASCULATURE: No aortic aneurysm. MUSCULOSKELETAL: Compression deformity of T12 vertebral body which is new from prior on 03/09/2024 wit h at least 25% height loss. Sclerotic focus within the manubrium is noted and more prominent on today 's exam compared to 01/07/2024 years barely visible. SOFT TISSUES/LYMPH NODES: Unremarkable. LOWER NECK: No significant findings. ABDOMEN: ABDOMEN LIVER: Unremarkable GALLBLADDER AND BILE DUCTS: Unremarkable. PANCREAS: Unremarkable. SPLEEN: Unremarkable. ADRENAL GLANDS: Unremarkable. KIDNEYS AND URETERS: No evidence of hydronephrosis or renal calculus. The ureters are unremarkable. PELVIS BLADDER: Unremarkable REPRODUCTIVE: The uterus is surgically absent. ABDOMEN & PELVIS STOMACH AND BOWEL: No evidence of bowel obstruction. Scattered colonic diverticula. PERITONEUM: No evidence of pneumoperitoneum or free fluid. VASCULATURE: No evidence of aortic aneurysm. MUSCULOSKELETAL: No acute osseous abnormalities. Mild disc degeneration changes are present throughou t the thoracolumbar spine. Fixation hardware in the spine appears intact. T12 compression deformity. LYMPH NODES: No gross evidence for lymphadenopathy. SOFT TISSUE/ABDOMINAL WALL: Unremarkable IMPRESSION: 1. Left lung apex mass no longer visualized and is likely surgically removed with leftward deviation of the chest. There is pulmonary vascular congestion within the left lung. 2. Left thoracotomy tube terminating in the left lung apex. There is trace left hydropneumothorax. 3. Left lower lung airspace opacities superimposed on small to moderate left pleural effusion and at electasis. 4. Findings on prior PET/CT of FDG avid lymph nodes within the mediastinum and neck are less appreci ated on today's exam and may have been reactive. Continued attention on follow-up PET/CT. 5. Sclerotic focus within the manubrium attention follow-up PET/CT to rule out metastatic lesion. Ne w from 6. 03/09/2024 compression deformity of T12 vertebrae with 25% height loss anteriorly. Correlate with back pain.
--- NOTE | 2024-04-18 13:10 | P.PN ---
Subjective Progress Note Date: 04/18/24 68-year-old female patient with metastatic pulmonary adenocarcinoma. The patient is well-known to me. established diagnosis back in December. At that time, the patient had a large left upper lobe mass and a right upper lobe pulmonary nodule and mediastinal lymphadenopathy. Bronchoscopy and biopsy of the left upper lobe mass and right upper lobe mass and subcarinal lymph nodes were all positive for pulm adenocarcinoma. The patient was referred to medical oncology and the patient was started on systemic treatment and the patient is currently receiving a combination of carboplatinum, Alimta and Keytruda. She has already completed 3 sessions of systemic chemotherapy. She was in the emergency department and in the hospital in February 2024. At that time, the patient was found to have a large left-sided pleural effusion. Thoracentesis was done and a total of 700 cc of pleural fluid was aspirated. The fluid was nonmalignant and based on the chemistry, it was an exudate with a high protein level. The patient felt better and the patient was discharged home. She was seen in the office and she was doing well and she was thought to have symptoms of COPD exacerbation. She was treated accordingly. The patient came into the emergency department yesterday because of worsening shortness of breath. On her chest x-ray, there is a large left-sided pleural effusion consistent with recurrent pleural effusion. She is quite short of breath and she is currently on 100% nonrebreather facemask. She is hemodynamically stable. Cardiac rhythm is sinus. Normotensive at this point in time. The blood work shows a white cell count of 8.3 with hemoglobin 15 and a platelet count of 288. Troponins are negative. The rest of the chemistry is still pending. She is known to have COPD. Her FEV1 is noted of 57% of predicted with significantly impaired diffusion capacity. She has been maintained on Advair and on outpatient basis in addition to albuterol updrafts. On a separate note, she has been complaining of a right upper quadrant pain. LFTs are still pending. Ultrasound of the righ t upper quadrant and gallbladder is in progress. She is known to have also hepatic metastases with at least 5 lesions noted on the PET scan that was done in December 2023 involving the right hepatic lobe. On today's evaluation of 04/14/2024, the patient is less short of breath and she is currently on 4 L of oxygen by nasal cannula. No other specific complaints. The chest x-ray following the Pleurx catheter insertion showed volume loss in the left lung, nevertheless, the overall aeration is improved. Noted at the time of the procedure, the patient has a total of 500 cc of serous fluid drained. She has no other new complaints for now. BUN is 11 with a creatinine of 0.29. The white cell count is at 5.3 with a hemoglobin 10.7 and platelet count of 233. Will obtain a follow-up chest x-ray in a.m. Afebrile. Hemodynamically stable. Maintained on Symbicort and DuoNeb up chest. Maintained on IV Solu-Medrol regarding her COPD exacerbation. 04/15/2024, the patient is stable. Repeat chest x-ray was done today and the patient was found to have volume loss in the left hemithorax with underlying left-sided pleural effusion/atelectasis. Pleurx catheter was seen in place. Drainage of the pleural fluid was done through the Pleurx catheter and a total of 150 cc of fluid was obtained. The patient is stable on 40s of oxygen by nasal cannula pulse ox 96%. She is also on a combination of bronchodilators and Symbicort as maintenance and IV Solu-Medrol 60 mg every 6 hours. Less bronchosp astic and wheezy. The white cell count is 6.3 with a hemoglobin 9.9 and platelet count of 248. BUN is 10 with a creatinine 0.4 and sodium levels at 138. On 04/16/2024, seen the patient for a follow up. Continues to have issues with cough and congestion wheezing basis of the exacerbation. Last fluid drainage was done yesterday with a total of 150 cc of fluid aspirated. Remains on Symbicort. Remains on DuoNeb. Remains on IV Solu-Medrol. No altered mentation. She is having some pain which is essentially a chronic problem. BUN is at 10 mg of 0.4. White cell count is 6.3. She is also encountering some insomnia. 04/17/2024, the patient is being seen for a follow-up. Slightly improved compared to yesterday and less bronchospastic and wheezy. No new complaints otherwise. Remains on bronchodilators and steroids. Last Pleurx catheter drainage was done on 04/15/2024 with limited amount of output. Another therapy session will be done tomorrow. White cell count 6.2 coming with 10.8 and a platelet count of 290. Sodium is at 136 with a potassium level of 5, BUN is 10 with a creatinine of 0.4. No other significant events overnight. The patient is seen today April 18, 2024 in follow-up on the regular medical floor. She is currently sitting up in bed. Awake and alert in no acute d istress. She is maintaining O2 saturations in the 90s on 4 L/min per nasal cannula. She did have a left-sided Pleurx catheter placed on April 13, 2024. CT scan of the chest abdomen and pelvis revealed small left pleural effusion with associated consolidation atelectasis and opacity. Left chest tube in place. Leftward shift of the mediastinum. No enlarged lymph nodes identified. No new labs today. She is continued on DuoNeb inhalations, Symbicort, Solu-Medrol. Heparin for DVT prophylaxis. Objective - Vital Signs Vital signs: Vital Signs Temp 97.7 F 04/18/24 11:53 Pulse 101 H 04/18/24 11:53 Resp 16 04/18/24 11:53 BP 99/63 04/18/24 11:53 Pulse Ox 95 04/18/24 11:53 FiO2 Intake & Output 04/17/24 04/18/24 04/18/24 18:59 06:59 18:59 Weight 46.4 kg Other: Voiding Method Bedside Commode Bedside Commode # Voids 2 1 - Exam GENERAL EXAM: Alert, 68-year-old female, frail and cachectic, on 4 L nasal cannula, comfortable in no apparent distress. HEAD: Normocephalic and atraumatic EYES: Normal reaction of pupils, equal size. NOSE: Clear with pink turbinates. THROAT: No erythema or exudates. NECK: No masses, no JVD. CHEST: No chest wall deformity. LUNGS: On equal air entry with scattered rhonchi and right sided inspiratory wheeze. Pleurx catheter in the left. CVS: S1 and S2 normal with no audible murmur, regular rhythm. No extra heart sounds ABDOMEN: No hepatosplenomegaly, active bowel sounds, no guarding or rigidity. Direct tenderness in the right upper quadrant. SPINE: No scoliosis or deformity SKIN: No rashes CENTRAL NERVOUS SYSTEM: No focal deficits, tone is normal in all 4 extremities. EXTREMITIES: There is no peripheral edema, clubbing, or cyanosis. Peripheral pulses are intact. - Labs CBC & Chem 7: 04/17/24 05:50 04/17/24 05:47 Assessment and Plan Assessment: Acute hypoxic respiratory failure. The patient is chronically hypoxic maintained on 4 L of oxygen by nasal cannula. the patient had obvious signs of an acute COPD exacerbation and she is actively bronchospastic and wheezy. However, the decomposition is probably related to the recurrent large left-sided pleural effusion, left Pleurx catheter was inserted and the patient had 500 cc of fluid drained in the operating room and another 150 cc of fluid was drained today on 04/15/2024. Clinically improving the patient seems to be less short of breath. Left-sided pleural effusion, exudate, post Pleurx catheter insertion Shortness of breath secondary to above, improving Stage IV metastatic lung adenocarcinoma, patient found to have a left 7.5 x 3.2 cm left perihilar mass back in October,. Follow-up PET scan was compatible with primary left upper lung malignancy with metastatic disease to the contralateral lung, the mediastinum, left neck, left pleural with associated malignant effusion, and within the liver. Did undergo navigational robotic b ronchoscopy 12/17/2023 consistent with metastatic non-small cell lung cancer/pulmonary adenocarcinoma. Patient has been started on a combination of Keytruda/carboplatin/Alimta. Follow-up chest CTA done this admission consistent with disease progression. Right upper quadrant pain, likely secondary to hepatic metastases Moderate to severe chronic obstructive pulmonary disease, with an FEV1 50% of predicted Chronic hypoxemic respiratory failure, secondary to a combination of above Former tobacco dependence, recently quit after her diagnosis of lung cancer Plan: The patient was seen and evaluated Medications and CT scan reviewed Stable from the pulmonary standpoint She does have home oxygen Plan is for home with home care Transitioned to oral steroids Will continue with Pleurx catheter I have personally seen and examined the patient, performed the documentation and the assessment and plan as written. Number of minutes spent on the visit: 10.
--- NOTE | 2024-04-18 15:52 | P.PN ---
Subjective Progress Note Date: 04/18/24 Hospital Course: Patient is a very pleasant 68-year-old female with a past medical history of chronic hypoxic respiratory failure home oxygen dependent on 2 L at all times secondary to stage IV metastatic non-small cell lung cancer currently undergoing chemotherapy and radiation treatment with Dr. Boyd with last reported treatment being 03/25/2024. Patient presented to the emergency department at [facility] for a chief complaint of right-sided chest pain and and worsening shortness of breath on 04/13/2024. Patient was found to be in acute on chronic respiratory failure with hypoxia and transferred to our facility for further evaluation. She was admitted under our services with consultations to pulmonology, cardiology, and oncology. After evaluation by pulmonology, cardiothoracic surgery was consulted for placement of left-sided Pleurx catheter which was placed on 04/13/2024. Data and Imaging completed at [facility] revealsed: -Chest x-ray was completed showing extensive coarse interstitial markings with a dense opacity in the left suprahilar region. -CTA chest completed negative for acute pulmonary emboli showing pulmonary emphysema with left suprahilar masslike opacity with likely postobstructive atelectasis or pneumonia measuring approximately 1.6 x 3.8 cm with moderate left pleural effusion and suspected mucous plugging and atelectasis in the left lower lobe with interlobular septal thickening along with defined lesions in the liver measuring up to 2.2 cm and the left and right lobes. -EKG completed and reviewed showing normal sinus rhythm at 93 bpm with no noted T wave or ST abnormalities upon personal review and interpretation. -Labs were completed and reviewed. CBC showing a WBC count of 6.7, hemoglobin of 11.2 and platelet count of 194. Coagulation profile showing PT 9.6, INR 0.90, and PTT of 22.5. BMP showing sodium 134, potassium 4.6, chloride 100, bicarb 25, anion gap of 9 and renal function showing BUN 9, creatinine 0.4, and GFR of 159. Liver profile was unremarkable. Magnesium normal findings at 1.9. Creatinine kidneys 76. Troponin negative at less than 0.05 and BNP was 25. -RSV, influenza A, and influenza B were negative. Data and Imaging completed at our facility includes: -Vital signs upon arrival to our facility patient was on nonrebreather oxygen mask at 15 L with SpO2 of 99%. Remainder of vital signs as follows blood pressure 121/60, heart rate 117, respiratory rate 20, and temp 98.0 F. -EKG was completed showing sinus tachycardia at 111 bpm with no noted T wave or ST abnormalities showing no signs of acute ischemia. -Repeat troponin was also negative at less than 0.012. -Abdominal/Gallbladder ultrasound completed radiology report stating patient's known hepatic masses are not well-demonstrated by ultrasound reporting a vague 2.0 cm each echogenic area in the right upper liver lobe, no gallstones, and bile duct is reported to be borderline to mildly dilated at 7 mm. -Echocardiogram completed showing preserved EF of 55 to 60% with trace mitral regurgitation and small pericardial effusion. Physical exam: Patient seen and fully evaluated at bedside this morning. She was sitting up in the chair at bedside and appears to be doing slightly better. Patient remains on 4 L O2 via nasal cannula. Patient plans to be discharged home with home care, declining recommendations to go to SNF for rehab. Goal for today is for patient to increase activity and ambulate with PT/OT from bed to chair. Vital signs reviewed and stable. General: Nontoxic, no distress and appears stated age. Derm: Skin warm and dry, normal coloration for ethnicity. Head: Atraumatic, normocephalic and symmetric. Eyes: EOMs intact, no lid lag, and anicteric sclera Mouth: no lip lesions, mucus membranes moist Cardiovascular: regular rate and rhythm with normal S1S2, no murmur, positive posterior tibial pulses bilaterally, and cap refill < 2 seconds. Lungs: Respirations even, regular, and unlabored on 4L O2 via nasal cannula. Lungs diminished with diffuse expiratory wheezes noted. Pleurx catheter left chest. Abdominal: soft, tenderness reported to palpation right upper quadrant. No guarding, no appreciable organomegaly Ext: ROM intact. No gross muscle atrophy, no edema, no contractures Neuro: Speech clear, face symmetrical and CN II-XII grossly intact with no noted focal neuro deficits Psych: Alert and oriented to person, place, time, and situation. Appropriate and pleasant affect. Assessment and Plan of Care: Acute on chronic respiratory failure with hypoxia Large Left-sided pleural effusion, status post Pleurx catheter placement Emphysema, bronchitis, and bronchiectasis with multifocal mucous plugging reported on CT Stage IV metastatic non-small cell lung cancer Right-sided chest pain/right upper quadrant pain History of nicotine dependence -Pulmonology following, reviewed documentation in chart. -Cardiothoracic surgery following, placed Pleurx catheter on 04/13/2024. -Cardiology following and discussed case with lens polisher hand and cardiac SQL TECH. -Oncology following and discussed plan of care with oncologist. Patient undergoing chemotherapy treatment today. -Continue supplemental oxygen and to be administered and titrated as needed to maintain SPO2 equal to or greater than 90%. Patient on baseline O2 of 2 L and currently has been weaned down to 4 L. -Continuous telemetry monitoring. -Monitor pulse-oximetry -Duonebs scheduled 4 times daily and as needed for SOB and/or wheezing -Incentive Spirometry -Steroids: Solu-Medrol 60 mg IVP every 8 hours -Continue Symbicort 160-4.5 mcg inhaler 2 puffs twice daily. -Abdominal/Gallbladder ultrasound completed radiology report stating patient's k nown hepatic masses are not well-demonstrated by ultrasound reporting a vague 2.0 cm each echogenic area in the right upper liver lobe, no gallstones, and bile duct is reported to be borderline to mildly dilated at 7 mm. -Echocardiogram completed showing preserved EF of 55 to 60% with trace mitral r egurgitation and small pericardial effusion. -Awaiting PT/OT recommendations. Data and imaging reviewed on today's exam: -Vital signs reviewed. Blood pressure 106/67, heart rate 96, respiratory rate 16, temp 97.7 F, and SpO2 of 98% on 4 L. -CT chest abdomen and pelvis with contrast was completed yesterday afternoon and radiology report reviewed showing area of previous left lung mass revealing a slight deviation of the mediastinum with pulmonary vascular congestion within the lung, confirmation of left thoracotomy tube in the left lung apex with trace hydropneumothorax, left lower lung airspace opacity superimposed on small to moderate left pleural effusion and atelectasis and previous lymph node findings on PET scan completed 12/10/2023 showing improvement as they are less appreciated, sclerotic focus within the manubrium requiring follow-up PET scan to rule out metastatic lesion, and a previously known compression deformity of T12. Discussed with nursing staff and order placed for physician to RN communication and to encourage increase of activity with patient supervised and recommending patient out of bed with all meals. Monitor closely for oxygen desaturation with activity. CODE STATUS: Full code DVT prophylaxis: Heparin Anticipated discharge date: Pending clinical course likely 24 to [address]: Patient declining discharge to rehab, requesting home with home care. Patient will require wheelchair and bedside commode as she is only able to ambulate minimal distances with assistance such as bed to bedside commode or bed to chair. Patient was seen independently by Nurse Practitioner. This document was prepared using [employer] dictation software. Please allow for errors in clinical cytogeneticist while rare they do occur. . I reviewed the documentation as provided by the ELIGIO above, who is the original author of this note. I agree with the documented assessment and plan, with the following changes: none Objective - Vital Signs Vital signs: Vital Signs Temp 97.7 F 04/18/24 07:08 Pulse 96 04/18/24 07:08 Resp 16 04/18/24 07:08 BP 106/67 04/18/24 07:08 Pulse Ox 98 04/18/24 07:08 FiO2 Intake & Output 04/17/24 04/18/24 04/18/24 18:59 06:59 18:59 Weight 46.4 kg Other: Voiding Method Bedside Commode Bedside Commode # Voids 2 1 - Labs CBC & Chem 7: 04/17/24 05:50 04/17/24 05:47 Labs: Abnormal Lab Results - Last 24 Hours (Table) 04/17/24 04/17/24 Range/Units 05:47 05:50 RBC 3.52 L (4.10-5.20) X 10*6/uL Hgb 10.8 L (12.0-15.0) g/dL Hct 31.6 L (37.2-46.3) % RDW 16.9 H (11.5-14.5) % MPV 9.4 L (9.5-12.2) FL NRBC/100 WBC Diff 0.06 H (0.00-0.01) X 10*3/uL Chloride 95 L (96-109) mmol/L Anion Gap 13.20 H (4.00-12.00) mmol/L Creatinine 0.4 L (0.6-1.5) mg/dL BUN/Creatinine Ratio 26.00 H (12.00-20.00) Ratio Glucose 156 H (70-110) mg/dL Total Bilirubin 0.2 L (0.3-1.2) mg/dL Total Protein 6.0 L (6.2-8.2) g/dL Albumin 3.5 L (3.8-4.9) g/dL Albumin/Globulin Ratio 1.40 L (1.60-3.17) Ratio
[2024-04-18] MEDS: oxyCODONE-APAP 10-325MG 1 EACH TAB PO PRN (16:22)
[2024-04-18] MEDS: CALCIUM CARBONATE 500 MG CHEWABLE PO PRN (18:45)
--- NOTE | 2024-04-18 22:43 | P.PN ---
Subjective Progress Note Date: 04/18/24 Patient reporting increased SOB today, plan to drain pleurx today and send for cytology and fluid analysis. Also reporting pain is not being well controlled on current regimen, will change norco to perocet with dilaudid for breakthrough pain Objective - Vital Signs Vital signs: Vital Signs Temp 97.7 F 04/18/24 11:53 Pulse 101 H 04/18/24 11:53 Resp 16 04/18/24 11:53 BP 99/63 04/18/24 11:53 Pulse Ox 95 04/18/24 11:53 FiO2 Intake & Output 04/17/24 04/18/24 04/18/24 18:59 06:59 18:59 Weight 46.4 kg Other: Voiding Method Bedside Commode Bedside Commode # Voids 2 1 - Constitutional General appearance: Present: average body habitus, no acute distress - EENT Eyes: Present: anicteric sclerae, EOMI ENT: Present: hearing grossly normal - Respiratory Details: breathing labored - Cardiovascular Details: skin warm and dry - Integumentary Integumentary: Absent: cyanotic - Neurologic Neurologic: Present: CNII-XII intact - Musculoskeletal Musculoskeletal Comment(s): lower thoracic and lumbar spine tenderness Musculoskeletal: Present: strength equal bilaterally - Psychiatric Psychiatric: Present: A&O x's 3 - Labs CBC & Chem 7: 04/17/24 05:50 04/17/24 05:47 - Imaging and Cardiology CT scan - abdomen: report reviewed CT scan - chest: report reviewed CT scan - pelvis: report reviewed Assessment and Plan (1) Adenocarcinoma of lung, stage 4 Current Visit: Yes Status: Acute Priority: High Code(s): C34.90 - MALIGNANT NEOPLASM OF UNSP PART OF UNSP BRONCHUS OR LUNG SNOMED Code(s): 486761119 (2) Hypoxia Current Visit: Yes Status: Acute Priority: High Code(s): R09.02 - HYPOXEMIA SNOMED Code(s): 179358931 (3) Pleural effusion Current Visit: Yes Status: Acute Code(s): J90 - PLEURAL EFFUSION, NOT ELSEWHERE CLASSIFIED SNOMED Code(s): 79898743 Plan: Hypoxia -Multifactoral-malignancy, COPD, and recurrent, worsening pleural effusion -Chest x-ray is revealed moderate left and trace right pleural effusions, pulmonary vascular congestion -Pleurx catheter placed on 04/13/2024 draining 500 cc. Subsequent drainage on 04/15/2024 drained 150 cc. Plan to repeat drainage today -Spoke with primary RN, requested cytology and pleural fluid studies Non-small cell lung cancer, high TMB -Patient is status post 3 cycles of carboplatin/Alimta/Keytruda with cycle 3 on 03/25/2024. She has tolerated treatment without any significant toxicities -She is due for treatment restaging scans -As she has remained inpatient, restaging CT scans have been ordered -CT chest abdomen pelvis revealed overall positive treatment response with left lung apex mass not visualized and lymph nodes within the mediastinum and neck are less pronounced. Unsure of significance of sclerotic focus within the manubrium. Scan also noted compression deformity of T12 vertebrae with 25% height loss anteriorly. Patient is reporting increased lower back pain over the last couple months. -Will obtain MRI thoracic spine for further evaluation -Discussed results and POC with patient, all questions were answered
[2024-04-19 03:54] LABS: LDH, Body Fluid Source Pleural Fluid; T. Protein, Body Fluid Source Pleural Fluid; Total Protein, Body Fluid 2530 mg/dL
[2024-04-19 05:16] LABS: Appearance,BF Clear (Clear)
[2024-04-19] MEDS: predniSONE 20 MG TAB PO SCH (07:58)
[2024-04-19 10:32] LABS: HCT 30.5 % (37.2-46.3); MCH 30.3 pg (27.0-32.0); MCHC 32.8 g/dL (32.0-37.0); MCV 92.4 FL (80.0-97.0); Mean Platelet Volume 10.2 FL (9.5-12.2); NRBC Per 100 WBC 0.21 X 10*3/uL (0.00-0.01); Platelet Count 283 X 10*3/uL (140-440); RDW 18.1 % (11.5-14.5); WBC 10.74 X 10*3/uL (4.50-10.00)
[2024-04-19 10:52] LABS: Magnesium 1.9 mg/dL (1.5-2.4)
[2024-04-19 10:53] LABS: ALT 92 U/L (8-44); AST 52 U/L (13-35); Albumin 3.1 g/dL (3.8-4.9); Albumin/Globulin Ratio 1.55 Ratio (1.60-3.17); Alkaline Phosphatase 94 U/L (41-126); Blood Urea Nitrogen 14.9 mg/dL (9.0-27.0); Calcium 8.6 mg/dL (8.7-10.3); Carbon Dioxide 29.2 mmol/L (21.6-31.8); Chloride 97 mmol/L (96-109); Glucose 86 mg/dL (70-110); Sodium 136 mmol/L (135-145); Total Bilirubin <0.2 mg/dL (0.3-1.2); Total Protein 5.1 g/dL (6.2-8.2)
--- NOTE | 2024-04-19 13:20 | P.PN ---
Subjective Progress Note Date: 04/19/24 68-year-old female patient with metastatic pulmonary adenocarcinoma. The patient is well-known to me. established diagnosis back in December. At that time, the patient had a large left upper lobe mass and a right upper lobe pulmonary nodule and mediastinal lymphadenopathy. Bronchoscopy and biopsy of the left upper lobe mass and right upper lobe mass and subcarinal lymph nodes were all positive for pulm adenocarcinoma. The patient was referred to medical oncology and the patient was started on systemic treatment and the patient is currently receiving a combination of carboplatinum, Alimta and Keytruda. She has already completed 3 sessions of systemic chemotherapy. She was in the emergency department and in the hospital in February 2024. At that time, the patient was found to have a large left-sided pleural effusion. Thoracentesis was done and a total of 700 cc of pleural fluid was aspirated. The fluid was nonmalignant and based on the chemistry, it was an exudate with a high protein level. The patient felt better and the patient was discharged home. She was seen in the office and she was doing well and she was thought to have symptoms of COPD exacerbation. She was treated accordingly. The patient came into the emergency department yesterday because of worsening shortness of breath. On her chest x-ray, there is a large left-sided pleural effusion consistent with recurrent pleural effusion. She is quite short of breath and she is currently on 100% nonrebreather facemask. She is hemodynamically stable. Cardiac rhythm is sinus. Normotensive at this point in time. The blood work shows a white cell count of 8.3 with hemoglobin 15 and a platelet count of 288. Troponins are negative. The rest of the chemistry is still pending. She is known to have COPD. Her FEV1 is noted of 57% of predicted with significantly impaired diffusion capacity. She has been maintained on Advair and on outpatient basis in addition to albuterol updrafts. On a separate note, she has been complaining of a right upper quadrant pain. LFTs are still pending. Ultrasound of the righ t upper quadrant and gallbladder is in progress. She is known to have also hepatic metastases with at least 5 lesions noted on the PET scan that was done in December 2023 involving the right hepatic lobe. On today's evaluation of 04/14/2024, the patient is less short of breath and she is currently on 4 L of oxygen by nasal cannula. No other specific complaints. The chest x-ray following the Pleurx catheter insertion showed volume loss in the left lung, nevertheless, the overall aeration is improved. Noted at the time of the procedure, the patient has a total of 500 cc of serous fluid drained. She has no other new complaints for now. BUN is 11 with a creatinine of 0.29. The white cell count is at 5.3 with a hemoglobin 10.7 and platelet count of 233. Will obtain a follow-up chest x-ray in a.m. Afebrile. Hemodynamically stable. Maintained on Symbicort and DuoNeb up chest. Maintained on IV Solu-Medrol regarding her COPD exacerbation. 04/15/2024, the patient is stable. Repeat chest x-ray was done today and the patient was found to have volume loss in the left hemithorax with underlying left-sided pleural effusion/atelectasis. Pleurx catheter was seen in place. Drainage of the pleural fluid was done through the Pleurx catheter and a total of 150 cc of fluid was obtained. The patient is stable on 40s of oxygen by nasal cannula pulse ox 96%. She is also on a combination of bronchodilators and Symbicort as maintenance and IV Solu-Medrol 60 mg every 6 hours. Less bronchosp astic and wheezy. The white cell count is 6.3 with a hemoglobin 9.9 and platelet count of 248. BUN is 10 with a creatinine 0.4 and sodium levels at 138. On 04/16/2024, seen the patient for a follow up. Continues to have issues with cough and congestion wheezing basis of the exacerbation. Last fluid drainage was done yesterday with a total of 150 cc of fluid aspirated. Remains on Symbicort. Remains on DuoNeb. Remains on IV Solu-Medrol. No altered mentation. She is having some pain which is essentially a chronic problem. BUN is at 10 mg of 0.4. White cell count is 6.3. She is also encountering some insomnia. 04/17/2024, the patient is being seen for a follow-up. Slightly improved compared to yesterday and less bronchospastic and wheezy. No new complaints otherwise. Remains on bronchodilators and steroids. Last Pleurx catheter drainage was done on 04/15/2024 with limited amount of output. Another therapy session will be done tomorrow. White cell count 6.2 coming with 10.8 and a platelet count of 290. Sodium is at 136 with a potassium level of 5, BUN is 10 with a creatinine of 0.4. No other significant events overnight. The patient is seen today April 18, 2024 in follow-up on the regular medical floor. She is currently sitting up in bed. Awake and alert in no acute d istress. She is maintaining O2 saturations in the 90s on 4 L/min per nasal cannula. She did have a left-sided Pleurx catheter placed on April 13, 2024. CT scan of the chest abdomen and pelvis revealed small left pleural effusion with associated consolidation atelectasis and opacity. Left chest tube in place. Leftward shift of the mediastinum. No enlarged lymph nodes identified. No new labs today. She is continued on DuoNeb inhalations, Symbicort, Solu-Medrol. Heparin for DVT prophylaxis. The patient is seen today April 19, 2024 in follow-up on the regular medical floor. She is awake and alert in no acute distress. She is maintaining good O2 saturations in the 90s on 4 L/min per nasal cannula. Her left-sided Pleurx catheter was drained yesterday with 350 mL of fluid removed. She denies any worsening shortness of breath, cough or congestion. She is continued on DuoNeb inhalations, Symbicort, Solu-Medrol. Heparin for DVT prophylaxis. Count 10.7. Hemoglobin 10.0. Platelets 283. Sodium 136. Potassium 4.0. Bicarb 29. BUN 15. Creatinine 0.5. Fluid analysis was clear within total protein of 2.5 and an LDH of 221. MRI of the thoracic spine is pending. Objective - Vital Signs Vital signs: Vital Signs Temp 97.9 F 04/19/24 07:40 Pulse 84 04/19/24 12:16 Resp 20 04/19/24 07:40 BP 115/67 04/19/24 07:40 Pulse Ox 92 L 04/19/24 07:42 FiO2 Intake & Output 04/18/24 04/19/24 04/19/24 18:59 06:59 18:59 Output Total 350 Balance -350 Weight 47.5 kg Output: Drainage 350 Left Chest 350 Other: Voiding Method Bedside Commode # Voids 2 1 - Exam GENERAL EXAM: Alert, pleasant 68-year-old female, cachectic, on 4 L nasal cannula, in no apparent distress. HEAD: Normocephalic and atraumatic EYES: Normal reaction of pupils, equal size. NOSE: Clear with pink turbinates. THROAT: No erythema or exudates. NECK: No masses, no JVD. CHEST: No chest wall deformity. LUNGS: Equal air entry with scattered rhonchi and right sided inspiratory wheeze. Pleurx catheter in the left. CVS: S1 and S2 normal with no audible murmur, regular rhythm. No extra heart sounds ABDOMEN: No hepatosplenomegaly, active bowel sounds, no guarding or rigidity. Direct tenderness in the right upper quadrant. SPINE: No scoliosis or deformity SKIN: No rashes CENTRAL NERVOUS SYSTEM: No focal deficits, tone is normal in all 4 extremities. EXTREMITIES: There is no peripheral edema, clubbing, or cyanosis. Peripheral pulses are intact. - Labs CBC & Chem 7: 04/19/24 06:31 04/19/24 06:31 Labs: Abnormal Lab Results - Last 24 Hours (Table) 04/19/24 04/19/24 Range/Units 06:31 06:31 WBC 10.74 H (4.50-10.00) X 10*3/uL RBC 3.30 L (4.10-5.20) X 10*6/uL Hgb 10.0 L (12.0-15.0) g/dL Hct 30.5 L (37.2-46.3) % RDW 18.1 H (11.5-14.5) % NRBC/100 WBC Diff 0.21 H (0.00-0.01) X 10*3/uL Creatinine 0.5 L (0.6-1.5) mg/dL BUN/Creatinine Ratio 29.80 H (12.00-20.00) Ratio Calcium 8.6 L (8.7-10.3) mg/dL Total Bilirubin <0.2 L (0.3-1.2) mg/dL AST 52 H (13-35) U/L ALT 92 H (8-44) U/L Total Protein 5.1 L (6.2-8.2) g/dL Albumin 3.1 L (3.8-4.9) g/dL Albumin/Globulin Ratio 1.55 L (1.60-3.17) Ratio Microbiology - Last 24 Hours (Table) 04/18/24 15:30 Gram Stain - Preliminary Pleural Fluid Assessment and Plan Assessment: Acute hypoxic respiratory failure. The patient is chronically hypoxic m aintained on 4 L of oxygen by nasal cannula. the patient had obvious signs of an acute COPD exacerbation and she is actively bronchospastic and wheezy. However, the decomposition is probably related to the recurrent large left-sided pleural effusion, left Pleurx catheter was inserted and the patient had 500 cc of fluid drained in the operating room and another 150 cc of fluid was drained today on 04/15/2024. Clinically improving the patient seems to be less short of breath. Another 350 mL drained 04/18/2024. Left-sided pleural effusion, exudate, post Pleurx catheter insertion Stage IV metastatic lung adenocarcinoma, patient found to have a left 7.5 x 3.2 cm left perihilar mass back in October,. Follow-up PET scan was compatible with primary left upper lung malignancy with metastatic disease to the contralateral lung, the mediastinum, left neck, left pleural with associated malignant effusion, and within the liver. Did undergo navigational robotic bronchoscopy 12/17/2023 consistent with metastatic non-small cell lung cancer/pulmonary adenocarcinoma. Patient has been started on a combination of Keytruda/carboplatin/Alimta. Follow-up chest CTA done this admission consistent with disease progression. Right upper quadrant pain, likely secondary to hepatic metastases Moderate to severe chronic obstructive pulmonary disease, with an FEV1 50% of predicted Chronic hypoxemic respiratory failure, secondary to a combination of above Former tobacco dependence, recently quit after her diagnosis of lung cancer Plan: The patient was seen and evaluated Medications and labs reviewed MRI of the thoracic spine pending Will continue with Pleurx catheter Home once cleared by oncology I have personally seen and examined the patient, performed the documentation and the assessment and plan as written. Number of minutes spent on the visit: 10.
--- NOTE | 2024-04-19 15:56 | P.PN ---
Subjective Progress Note Date: 04/19/24 Hospital Course: Patient is a very pleasant 68-year-old female with a past medical history of chronic hypoxic respiratory failure home oxygen dependent on 2 L at all times secondary to stage IV metastatic non-small cell lung cancer currently undergoing chemotherapy and radiation treatment with Dr. Boyd with last reported treatment being 03/25/2024. Patient presented to the emergency department at [facility] for a chief complaint of right-sided chest pain and and worsening shortness of breath on 04/13/2024. Patient was found to be in acute on chronic respiratory failure with hypoxia and transferred to our facility for further evaluation. She was admitted under our services with consultations to pulmonology, cardiology, and oncology. After evaluation by pulmonology, cardiothoracic surgery was consulted for placement of left-sided Pleurx catheter which was placed on 04/13/2024. Data and Imaging completed at [facility] revealsed: -Chest x-ray was completed showing extensive coarse interstitial markings with a dense opacity in the left suprahilar region. -CTA chest completed negative for acute pulmonary emboli showing pulmonary emphysema with left suprahilar masslike opacity with likely postobstructive atelectasis or pneumonia measuring approximately 1.6 x 3.8 cm with moderate left pleural effusion and suspected mucous plugging and atelectasis in the left lower lobe with interlobular septal thickening along with defined lesions in the liver measuring up to 2.2 cm and the left and right lobes. -EKG completed and reviewed showing normal sinus rhythm at 93 bpm with no noted T wave or ST abnormalities upon personal review and interpretation. -Labs were completed and reviewed. CBC showing a WBC count of 6.7, hemoglobin of 11.2 and platelet count of 194. Coagulation profile showing PT 9.6, INR 0.90, and PTT of 22.5. BMP showing sodium 134, potassium 4.6, chloride 100, bicarb 25, anion gap of 9 and renal function showing BUN 9, creatinine 0.4, and GFR of 159. Liver profile was unremarkable. Magnesium normal findings at 1.9. Creatinine kidneys 76. Troponin negative at less than 0.05 and BNP was 25. -RSV, influenza A, and influenza B were negative. Data and Imaging completed at our facility includes: -Vital signs upon arrival to our facility patient was on nonrebreather oxygen mask at 15 L with SpO2 of 99%. Remainder of vital signs as follows blood pressure 121/60, heart rate 117, respiratory rate 20, and temp 98.0 F. -EKG was completed showing sinus tachycardia at 111 bpm with no noted T wave or ST abnormalities showing no signs of acute ischemia. -Repeat troponin was also negative at less than 0.012. -Abdominal/Gallbladder ultrasound completed radiology report stating patient's known hepatic masses are not well-demonstrated by ultrasound reporting a vague 2.0 cm each echogenic area in the right upper liver lobe, no gallstones, and bile duct is reported to be borderline to mildly dilated at 7 mm. -Echocardiogram completed showing preserved EF of 55 to 60% with trace mitral regurgitation and small pericardial effusion. Physical exam: Patient seen and fully evaluated at bedside this morning. She appears to be doing well this morning. She is talking in full sentences without any exertional/conversational dyspnea noted at this time. She is maintaining SpO2 of 92% on 4 L. She denies having any chest pain or discomfort. Patient had 350 cc drained from Pleurx catheter yesterday afternoon. Vital signs reviewed and stable. General: Nontoxic, no distress and appears stated age. Derm: Skin warm and dry, normal coloration for ethnicity. Head: Atraumatic, normocephalic and symmetric. Eyes: EOMs intact, no lid lag, and anicteric sclera Mouth: no lip lesions, mucus membranes moist Cardiovascular: regular rate and rhythm with normal S1S2, no murmur, positive posterior tibial pulses bilaterally, and cap refill < 2 seconds. Lungs: Respirations even, regular, and unlabored on 4L O2 via nasal cannula. Lungs diminished with diffuse expiratory wheezes noted. Pleurx catheter left chest. Abdominal: soft, tenderness reported to palpation right upper quadrant. No guarding, no appreciable organomegaly Ext: ROM intact. No gross muscle atrophy, no edema, no contractures Neuro: Speech clear, face symmetrical and CN II-XII grossly intact with no noted focal neuro deficits Psych: Alert and oriented to person, place, time, and situation. Appropriate and pleasant affect. Assessment and Plan of Care: Acute on chronic respiratory failure with hypoxia Large Left-sided pleural effusion, status post Pleurx catheter placement Emphysema, bronchitis, and bronchiectasis with multifocal mucous plugging reported on CT Stage IV metastatic non-small cell lung cancer Right-sided chest pain/right upper quadrant pain History of nicotine dependence T12 compression deformity -Pulmonology following, reviewed documentation in chart. -Cardiothoracic surgery following, placed Pleurx catheter on 04/13/2024. -Cardiology following and reviewed documentation in chart. -Oncology following and discussed plan of care with oncologist. Patient to undergo thoracic MRI secondary to T12 compression deformity, to rule out further metastasis/bone lesions -Continue supplemental oxygen and to be administered and titrated as needed to maintain SPO2 equal to or greater than 90%. Patient on baseline O2 of 2 L and currently has been weaned down to 4 L. -Continue telemetry monitoring. -Monitor pulse-oximetry -Duonebs scheduled 4 times daily and as needed for SOB and/or wheezing -Incentive Spirometry -Steroids: Patient started on oral steroids with prednisone 40 mg daily this morning. -Continue Symbicort 160-4.5 mcg inhaler 2 puffs twice daily. -Echocardiogram completed showing preserved EF of 55 to 60% with trace mitral regurgitation and small pericardial effusion. -PT/OT recommending that patient would benefit from subacute rehab to increase strength, and functional endurance. Data and imaging reviewed on today's exam: -Vital signs reviewed. Blood pressure 106/67, heart rate 96, respiratory rate 16, temp 97.7 F, and SpO2 of 98% on 4 L. -Labs completed and reviewed. CBC showing mild leukocytosis with WBC count of 10.74 and stable normocytic anemia with hemoglobin of 10.0. BMP unremarkable. Magnesium 1.9. Liver profile showing elevated AST of 52, ALT of 92, and alk phos of 94. -Documented fluid removed from Pleurx catheter was 350 cc Patient requires a wheelchair to complete ADLs and is unable to complete her ADLs with a cane or walker secondary to her stage IV metastatic non-small cell lung cancer and worsening respiratory failure resulting in significant hypoxia with minimal exertion. Patient has someone in the home that we will be able to help propel her. CODE STATUS: Full code DVT prophylaxis: Heparin Anticipated discharge date: Pending clinical course Anticipated discharge place: Patient declining discharge to rehab, requesting home with home care. Patient will require wheelchair and bedside commode as she is only able to ambulate minimal distances with assistance such as bed to bedside commode or bed to chair. Patient was seen independently by Nurse Practitioner. This document was prepared using [employer] dictation software. Please allow for errors in saturation equipment operator while rare they do occur. I reviewed the documentation as provided by the ELIGIO above, who is the original author of this note. I agree with the documented assessment and plan, with the following changes: none Objective - Vital Signs Vital signs: Vital Signs Temp 97.9 F 04/19/24 07:40 Pulse 84 04/19/24 08:05 Resp 20 04/19/24 07:40 BP 115/67 04/19/24 07:40 Pulse Ox 92 L 04/19/24 07:42 FiO2 Intake & Output 04/18/24 04/19/24 04/19/24 18:59 06:59 18:59 Output Total 350 Balance -350 Weight 47.5 kg Output: Drainage 350 Left Chest 350 Other: Voiding Method Bedside Commode # Voids 2 - Labs CBC & Chem 7: 04/19/24 06:31 04/19/24 06:31 Labs: Microbiology - Last 24 Hours (Table) 04/18/24 15:30 Gram Stain - Preliminary Pleural Fluid
[2024-04-19] MEDS: HYDROcodone/APAP 10-325MG 1 EACH TAB PO PRN (16:58)
--- NOTE | 2024-04-19 17:33 | P.PN ---
Subjective Progress Note Date: 04/19/24 Principal diagnosis: Metastatic NSCLC, Hypoxic resp failure In f/u today pt reports O2 back to near baseline of 3L (on 3.5-4L currently). She is breathing much better then on admit. Back pain is chronic and persistent, she feels she does better with pain control on norco. Family at bedside at multiple questions. No fevers, N,V, new cough. Objective - Vital Signs Vital signs: Vital Signs Temp 98.0 F 04/19/24 13:31 Pulse 97 04/19/24 13:31 Resp 20 04/19/24 07:40 BP 108/57 04/19/24 13:46 Pulse Ox 93 L 04/19/24 13:31 FiO2 Intake & Output 04/18/24 04/19/24 04/19/24 18:59 06:59 18:59 Output Total 350 Balance -350 Weight 47.5 kg Output: Drainage 350 Left Chest 350 Other: Voiding Method Bedside Commode # Voids 2 1 - Constitutional General appearance: Present: cooperative, thin (petite) - EENT Eyes: Present: anicteric sclerae, EOMI ENT: Present: hearing grossly normal - Respiratory Respiratory: bilateral: diminished - Cardiovascular Rhythm: regular Heart sounds: normal: S1, S2 Abnormal Heart Sounds: Absent: systolic murmur, diastolic murmur, rub, S3 Gallop, S4 Gallop, click, other - Peripheral edema leg Peripheral Edema: bilateral: None - Gastrointestinal General gastrointestinal: Present: soft - Neurologic Neurologic: Present: CNII-XII intact - Musculoskeletal Musculoskeletal: Present: generalized weakness, strength equal bilaterally - Psychiatric Psychiatric: Present: A&O x's 3, appropriate affect, intact judgment & insight - Labs CBC & Chem 7: 04/19/24 06:31 04/19/24 06:31 Labs: Abnormal Lab Results - Last 24 Hours (Table) 04/19/24 04/19/24 Range/Units 06:31 06:31 WBC 10.74 H (4.50-10.00) X 10*3/uL RBC 3.30 L (4.10-5.20) X 10*6/uL Hgb 10.0 L (12.0-15.0) g/dL Hct 30.5 L (37.2-46.3) % RDW 18.1 H (11.5-14.5) % NRBC/100 WBC Diff 0.21 H (0.00-0.01) X 10*3/uL Creatinine 0.5 L (0.6-1.5) mg/dL BUN/Creatinine Ratio 29.80 H (12.00-20.00) Ratio Calcium 8.6 L (8.7-10.3) mg/dL Total Bilirubin <0.2 L (0.3-1.2) mg/dL AST 52 H (13-35) U/L ALT 92 H (8-44) U/L Total Protein 5.1 L (6.2-8.2) g/dL Albumin 3.1 L (3.8-4.9) g/dL Albumin/Globulin Ratio 1.55 L (1.60-3.17) Ratio Microbiology - Last 24 Hours (Table) 04/18/24 15:30 Gram Stain - Preliminary Pleural Fluid - Imaging and Cardiology CT scan - abdomen: report reviewed CT scan - chest: report reviewed CT scan - pelvis: report reviewed Assessment and Plan (1) Hypoxia Current Visit: Yes Status: Acute Priority: High Code(s): R09.02 - HYPOXEMIA SNOMED Code(s): 163374347 (2) Adenocarcinoma, lung Current Visit: No Status: Acute Priority: High Code(s): C34.90 - MALIGNANT NEOPLASM OF UNSP PART OF UNSP BRONCHUS OR LUNG SNOMED Code(s): 053197879 Plan: Hypoxia -Muh improved since admit. O2 back to baseline -Multifactoral-malignancy, COPD, and recurrent, worsening pleural effusion -Chest x-ray showed moderate left and trace right pleural effusions, pulmonary vascular congestion. -Lt peurex palced /, 500cc fluid removed, pending cytology. Previous pleural fluid cytology was negative for malignancy. Suspect that this fluid is a result of treatment of malignancy, pending path. Chest pain Non-small cell lung cancer, high TMB -Patient is status post 3 cycles of carboplatin/Alimta/Keytruda. She has tolerated treatment overall fairly well -Treatment restaging scan done. Family asked for results. CT chest abdomen and pelvis with contrast reports the left lung apex mass no longer visualized, some leftward deviation in the chest. Trace left hydropneumothorax. PET/CT FDG avid lymph nodes in the mediastinum and neck less appreciated, liver is reported as unremarkable where previously 5 lesions were noted. -Plan at this time will be to continue treatment as ordered. Patient overall is tolerated treatment well when asked, patient states that she definitely has more good days than bad days on treatment. Patient reports that her chronic back pain is managed well with Leeds 1-1-1/2 tabs at the time. She states that she has been doing this for quite some time and that her primary care is aware of how she is using it. She states that she actually uses less pain medication when she takes a half a tab now and again. Patient was resumed on Leeds. She is okay from an oncology standpoint to discharge once she has been cleared by attending and consulting physicians. We will reschedule her treatment when she has been discharged.
--- NOTE | 2024-04-20 12:02 | XR ---
EXAMINATION TYPE: XR Hip Complete RT DATE OF EXAM: 04/20/2024 COMPARISON: None HISTORY: Fall, pain TECHNIQUE: 2 view right hip FINDINGS: Femoral head articulates with the acetabulum. Joint space is preserved. No acute fracture o r dislocation is evident. Sacroiliac joint is some mild degenerative change. [facility] follow-up can be p erformed as clinically indicated. IMPRESSION: 1. No acute osseous abnormality right hip.
--- NOTE | 2024-04-20 13:23 | P.PN ---
Subjective Progress Note Date: 04/20/24 68-year-old female patient with metastatic pulmonary adenocarcinoma. The patient is well-known to me. established diagnosis back in December. At that time, the patient had a large left upper lobe mass and a right upper lobe pulmonary nodule and mediastinal lymphadenopathy. Bronchoscopy and biopsy of the left upper lobe mass and right upper lobe mass and subcarinal lymph nodes were all positive for pulm adenocarcinoma. The patient was referred to medical oncology and the patient was started on systemic treatment and the patient is currently receiving a combination of carboplatinum, Alimta and Keytruda. She has already completed 3 sessions of systemic chemotherapy. She was in the emergency department and in the hospital in February 2024. At that time, the patient was found to have a large left-sided pleural effusion. Thoracentesis was done and a total of 700 cc of pleural fluid was aspirated. The fluid was nonmalignant and based on the chemistry, it was an exudate with a high protein level. The patient felt better and the patient was discharged home. She was seen in the office and she was doing well and she was thought to have symptoms of COPD exacerbation. She was treated accordingly. The patient came into the emergency department yesterday because of worsening shortness of breath. On her chest x-ray, there is a large left-sided pleural effusion consistent with recurrent pleural effusion. She is quite short of breath and she is currently on 100% nonrebreather facemask. She is hemodynamically stable. Cardiac rhythm is sinus. Normotensive at this point in time. The blood work shows a white cell count of 8.3 with hemoglobin 15 and a platelet count of 288. Troponins are negative. The rest of the chemistry is still pending. She is known to have COPD. Her FEV1 is noted of 57% of predicted with significantly impaired diffusion capacity. She has been maintained on Advair and on outpatient basis in addition to albuterol updrafts. On a separate note, she has been complaining of a right upper quadrant pain. LFTs are still pending. Ultrasound of the righ t upper quadrant and gallbladder is in progress. She is known to have also hepatic metastases with at least 5 lesions noted on the PET scan that was done in December 2023 involving the right hepatic lobe. On today's evaluation of 04/14/2024, the patient is less short of breath and she is currently on 4 L of oxygen by nasal cannula. No other specific complaints. The chest x-ray following the Pleurx catheter insertion showed volume loss in the left lung, nevertheless, the overall aeration is improved. Noted at the time of the procedure, the patient has a total of 500 cc of serous fluid drained. She has no other new complaints for now. BUN is 11 with a creatinine of 0.29. The white cell count is at 5.3 with a hemoglobin 10.7 and platelet count of 233. Will obtain a follow-up chest x-ray in a.m. Afebrile. Hemodynamically stable. Maintained on Symbicort and DuoNeb up chest. Maintained on IV Solu-Medrol regarding her COPD exacerbation. 04/15/2024, the patient is stable. Repeat chest x-ray was done today and the patient was found to have volume loss in the left hemithorax with underlying left-sided pleural effusion/atelectasis. Pleurx catheter was seen in place. Drainage of the pleural fluid was done through the Pleurx catheter and a total of 150 cc of fluid was obtained. The patient is stable on 40s of oxygen by nasal cannula pulse ox 96%. She is also on a combination of bronchodilators and Symbicort as maintenance and IV Solu-Medrol 60 mg every 6 hours. Less bronchosp astic and wheezy. The white cell count is 6.3 with a hemoglobin 9.9 and platelet count of 248. BUN is 10 with a creatinine 0.4 and sodium levels at 138. On 04/16/2024, seen the patient for a follow up. Continues to have issues with cough and congestion wheezing basis of the exacerbation. Last fluid drainage was done yesterday with a total of 150 cc of fluid aspirated. Remains on Symbicort. Remains on DuoNeb. Remains on IV Solu-Medrol. No altered mentation. She is having some pain which is essentially a chronic problem. BUN is at 10 mg of 0.4. White cell count is 6.3. She is also encountering some insomnia. 04/17/2024, the patient is being seen for a follow-up. Slightly improved compared to yesterday and less bronchospastic and wheezy. No new complaints otherwise. Remains on bronchodilators and steroids. Last Pleurx catheter drainage was done on 04/15/2024 with limited amount of output. Another therapy session will be done tomorrow. White cell count 6.2 coming with 10.8 and a platelet count of 290. Sodium is at 136 with a potassium level of 5, BUN is 10 with a creatinine of 0.4. No other significant events overnight. The patient is seen today April 18, 2024 in follow-up on the regular medical floor. She is currently sitting up in bed. Awake and alert in no acute d istress. She is maintaining O2 saturations in the 90s on 4 L/min per nasal cannula. She did have a left-sided Pleurx catheter placed on April 13, 2024. CT scan of the chest abdomen and pelvis revealed small left pleural effusion with associated consolidation atelectasis and opacity. Left chest tube in place. Leftward shift of the mediastinum. No enlarged lymph nodes identified. No new labs today. She is continued on DuoNeb inhalations, Symbicort, Solu-Medrol. Heparin for DVT prophylaxis. The patient is seen today April 19, 2024 in follow-up on the regular medical floor. She is awake and alert in no acute distress. She is maintaining good O2 saturations in the 90s on 4 L/min per nasal cannula. Her left-sided Pleurx catheter was drained yesterday with 350 mL of fluid removed. She denies any worsening shortness of breath, cough or congestion. She is continued on DuoNeb inhalations, Symbicort, Solu-Medrol. Heparin for DVT prophylaxis. Count 10.7. Hemoglobin 10.0. Platelets 283. Sodium 136. Potassium 4.0. Bicarb 29. BUN 15. Creatinine 0.5. Fluid analysis was clear within total protein of 2.5 and an LDH of 221. MRI of the thoracic spine is pending. The patient is seen today April 20, 2024 in follow-up on the regular medical floor. She is sitting up in bed. Awake and alert in no acute distress. Maintaining O2 saturations in the 90s on 4 L/min per nasal cannula. Afebrile. Hemodynamically stable. Pleural fluid cultures are pending. Cytology pending. She remains afebrile. Hemodynamically stable. Right hip x-ray revealed no acute osseous abnormality. MRI of the thoracic spine is pending. She is continued on DuoNeb inhalations, Symbicort. Heparin for DVT prophylaxis. Remains on a prednisone taper. Objective - Vital Signs Vital signs: Vital Signs Temp 97.9 F 04/20/24 10:05 Pulse 104 H 04/20/24 11:33 Resp 24 04/20/24 10:05 BP 112/70 04/20/24 10:05 Pulse Ox 95 04/20/24 10:05 FiO2 Intake & Output 04/19/24 04/20/24 04/20/24 18:59 06:59 18:59 Weight 47.8 kg Other: Voiding Method Bedside Commode Bedside Commode # Voids 1 2 # Bowel Movements 1 - Exam GENERAL EXAM: Alert, 68-year-old female, resting in bed, on 4 L nasal cannula, in no apparent distress. HEAD: Normocephalic and atraumatic EYES: Normal reaction of pupils, equal size. NOSE: Clear with pink turbinates. THROAT: No erythema or exudates. NECK: No masses, no JVD. CHEST: No chest wall deformity. LUNGS: Equal air entry with scattered rhonchi and right sided inspiratory wheeze. Pleurx catheter in the left. CVS: S1 and S2 normal with no audible murmur, regular rhythm. No extra heart sounds ABDOMEN: No hepatosplenomegaly, active bowel sounds, no guarding or rigidity. Direct tenderness in the right upper quadrant. SPINE: No scoliosis or deformity SKIN: No rashes CENTRAL NERVOUS SYSTEM: No focal deficits, tone is normal in all 4 extremities. EXTREMITIES: There is no peripheral edema, clubbing, or cyanosis. Peripheral pulses are intact. - Labs CBC & Chem 7: 04/19/24 06:31 04/19/24 06:31 Labs: Microbiology - Last 24 Hours (Table) 04/18/24 15:30 Gram Stain - Preliminary Pleural Fluid Body Fluid Culture - Preliminary Assessment and Plan Assessment: Acute hypoxic respiratory failure. The patient is chronically hypoxic maintained on 4 L of oxygen by nasal cannula. the patient had obvious signs of an acute COPD exacerbation and she is actively bronchospastic and wheezy. However, the decomposition is probably related to the recurrent large left-sided pleural effusion, left Pleurx catheter was inserted and the patient had 500 cc of fluid drained in the operating room and another 150 cc of fluid was drained today on 04/15/2024. Clinically improving the patient seems to be less short of breath. Another 350 mL drained 04/18/2024. Left-sided pleural effusion, exudate, post Pleurx catheter insertion Stage IV metastatic lung adenocarcinoma, patient found to have a left 7.5 x 3.2 cm left perihilar mass back in October,. Follow-up PET scan was compatible with primary left upper lung malignancy with metastatic disease to the contralateral lung, the mediastinum, left neck, left pleural with associated malignant effusion, and within the liver. Did undergo navigational robotic bronchoscopy 12/17/2023 consistent with metastatic non-small cell lung cancer/pulmonary adenocarcinoma. Patient has been started on a combination of Keytruda/carboplatin/Alimta. Follow-up chest CTA done this admission consistent with disease progression. Right upper quadrant pain, likely secondary to hepatic metastases Moderate to severe chronic obstructive pulmonary disease, with an FEV1 50% of predicted Chronic hypoxemic respiratory failure, secondary to a combination of above Former tobacco dependence, recently quit after her diagnosis of lung cancer Plan: The patient was seen and evaluated Medications and labs reviewed Pleural fluid cytology pending Right hip x-ray reviewed, no abnormalities MRI of the thoracic spine pending Will continue with Pleurx catheter Home once cleared by oncology I have personally seen and examined the patient, performed the documentation and the assessment and plan as written. Number of minutes spent on the visit: 10.
[2024-04-20 13:39] VITALS: BMI 19.9
[2024-04-20 14:08] VITALS: BP 88/53; RESP 16; TEMP 97.8
[2024-04-20 15:30] VITALS: PULSE 104
--- NOTE | 2024-04-20 15:50 | MR ---
EXAMINATION TYPE: MR thoracic spine wo/w con DATE OF EXAM: 04/20/2024 COMPARISON: CT chest abdomen and pelvis 04/17/2024 HISTORY: Back pain, metastatic NSCLC, T12 compression fx. CONTRAST: Performed utilizing 5 mL intravenous Gadavist gadolinium contrast. TECHNIQUE: Multiplanar, multiecho imaging on a 3.0 Nicole magnet is performed through the thoracic spi ne. Spinal cord maintains normal signal through its visualized course. Vertebral body alignment is normal. There is loss of signal within the lower thoracic spine in the region T12. No posterior wall displace ment is evident. No spinal canal stenosis is evident. There is approximately 20% loss of anterior deandre tebral body height. This vertebral body enhances following contrast Disc heights are preserved. There is some disc desiccation within the mid thoracic spine. Some mild disc bulging may be present i n the region of T5-6 with mild anterior thecal sac compression. No cord contact or spinal canal steno sis is present. No spinal canal stenosis is evident. There is consolidation or mass within the left lung. IMPRESSION: 1. Compression deformity in the region T12 without posterior wall displacement. Signal change suggest s underlying metastatic disease.
--- NOTE | 2024-04-20 16:47 | P.PN ---
Subjective Progress Note Date: 04/20/24 Hospital Course: Patient is a very pleasant 68-year-old female with a past medical history of chronic hypoxic respiratory failure home oxygen dependent on 2 L at all times secondary to stage IV metastatic non-small cell lung cancer currently undergoing chemotherapy and radiation treatment with Dr. Boyd with last reported treatment being 03/25/2024. Patient presented to the emergency department at [facility] for a chief complaint of right-sided chest pain and and worsening shortness of breath on 04/13/2024. Patient was found to be in acute on chronic respiratory failure with hypoxia and transferred to our facility for further evaluation. She was admitted under our services with consultations to pulmonology, cardiology, and oncology. After evaluation by pulmonology, cardiothoracic surgery was consulted for placement of left-sided Pleurx catheter which was placed on 04/13/2024. Patient also did have a MRI of the thoracic spine that should show findings consistent metastatic disease. Patient is amenable to palliative care. Patient is refusing to go to rehab. Subjective Patient seen this morning. I discussed goals of care with the patient. Patient states that she would like to go home with palliative care. Patient this morning also did have a fall. After fall she complained of right hip pain. Hip x-ray was negative for fracture Physical exam General examination - Alert and Oriented 3 in NAD, appears chronically debilitated Heart - + S1S2 no murmurs Lungs -diminished breath sounds bilaterally Abdomen soft NT ND +ve BS Extremities - No edema ENERGY ASSISTANT - Moving all 4 extremities spontaneously Psych - Calm and cooperative Assessment and plan Acute on chronic respiratory failure with hypoxia Large Left-sided pleural effusion, status post Pleurx catheter placement Emphysema, bronchitis, and bronchiectasis with multifocal mucous plugging reported on CT Stage IV metastatic non-small cell lung cancer Right-sided chest pain/right upper quadrant pain History of nicotine dependence T12 compression deformity and also likely metastatic disease Per pulmonology patient is stable for discharge Patient currently satting well on 4 L nasal cannula Thoracic MRI reviewed that showed findings consider possible metastatic lesion. [place] as needed for pain Continue current pain regimen Will completed steroid taper Continue with Symbicort PT OT did recommend rehab however patient wants to go home. She is amenable to palliative care DVT prophylaxis: Subcu heparin Disposition: Anticipate patient be ready for discharge tomorrow cleared by oncology and set up with palliative care Objective - Vital Signs Vital signs: Vital Signs Temp 97.8 F 04/20/24 14:02 Pulse 104 H 04/20/24 15:42 Resp 16 04/20/24 14:02 BP 88/53 04/20/24 14:02 Pulse Ox 95 04/20/24 14:02 FiO2 Intake & Output 04/19/24 04/20/24 04/20/24 18:59 06:59 18:59 Weight 47.8 kg 47.8 kg Other: Voiding Method Bedside Commode Bedside Commode # Voids 1 2 # Bowel Movements 1 - Labs CBC & Chem 7: 04/19/24 06:31 04/19/24 06:31 Labs: Microbiology - Last 24 Hours (Table) 04/18/24 15:30 Gram Stain - Preliminary Pleural Fluid Body Fluid Culture - Preliminary
--- NOTE | 2024-04-20 17:24 | P.DS ---
Providers Date of admission: 04/13/24 05:06 Attending physician: Vivi Lucio MD Consults: 04/13/24 05:05 Consult Physician Routine Consulting Provider: Link Mcgregor Consult Reason/Comments: hypoxia Do you want consulting provider notified?: Yes Consult Physician Routine Consulting Provider: Renan Boyd Consult Reason/Comments: lung cancer Do you want consulting provider notified?: Yes 04/13/24 10:39 Consult Physician Routine Consulting Provider: Triston Dickey Consult Reason/Comments: pleurx insertion Do you want consulting provider notified?: Already Contacted Primary care physician: [facility] Course: Hospital Course: Patient is a very pleasant 68-year-old female with a past medical history of chronic hypoxic respiratory failure home oxygen dependent on 2 L at all times secondary to stage IV metastatic non-small cell lung cancer currently undergoing chemotherapy and radiation treatment with Dr. Boyd with last reported treatment being 03/25/2024. Patient presented to the emergency department at [facility] for a chief complaint of right-sided chest pain and and worsening shortness of breath on 04/13/2024. Patient was found to be in acute on chronic respiratory failure with hypoxia and transferred to our facility for further evaluation. She was admitted under our services with consultations to pulmonology, cardiology, and oncology. After evaluation by pulmonology, cardiothoracic surgery was consulted for placement of left-sided Pleurx catheter which was placed on 04/13/2024. Patient also did have a MRI of the thoracic spine that showed findings consistent metastatic disease. Patient was started on [place] for pain control. I discussed with oncology who said patient is stable for discharge from their standpoint. Patient is refusing to go to rehab. retail business development manager arranged for home physical therapy and home care. Patient is also amenable to palliative care. retail business development manager sent referral for palliative care. Physical exam General examination - Alert and Oriented 3 in NAD, appears chronically debilitated Heart - + S1S2 no murmurs Lungs -diminished breath sounds bilaterally Abdomen soft NT ND +ve BS Extremities - No edema CARE PROFESSIONALS - Moving all 4 extremities spontaneously Psych - Calm and cooperative Discharge diagnosis Acute on chronic respiratory failure with hypoxia Large Left-sided pleural effusion, status post Pleurx catheter placement Emphysema, bronchitis, and bronchiectasis with multifocal mucous plugging reported on CT Stage IV metastatic non-small cell lung cancer Likely new metastasis to the spine Right-sided chest pain/right upper quadrant pain History of nicotine dependence T12 compression deformity I spent 33 minutes with this discharge Patient Condition at Discharge: Poor Plan - Discharge Summary New Discharge Prescriptions: New predniSONE [Deltasone] 40 mg PO DAILY 5 Days #10 tab Continue HYDROcodone/APAP 10-325MG [[place] 10-325] 1 tab PO Q4HR PRN PRN Reason: Pain Control Fluticasone Propion/Salmeterol [Advair Hfa 230-21 Mcg Inhaler] 2 puff INHALATION RT-BID Baclofen 10 - 20 mg PO TID PRN PRN Reason: Muscle Spasm Zolpidem Tartrate [Ambien] 5 mg PO HS PRN PRN Reason: Insomnia Folic Acid 1 mg PO DAILY Pembrolizumab [Keytruda] 200 mg IV Q21D Discharge Medication List HYDROcodone/APAP 10-325MG [[place] 10-325] 1 tab PO Q4HR PRN 07/12/18 [History] Folic Acid 1 mg PO DAILY 03/09/24 [History] Pembrolizumab [Keytruda] 200 mg IV Q21D 03/09/24 [History] Baclofen 10 - 20 mg PO TID PRN 04/13/24 [History] Fluticasone Propion/Salmeterol [Advair Hfa 230-21 Mcg Inhaler] 2 puff INHALATION RT-BID 04/13/24 [History] Zolpidem Tartrate [Ambien] 5 mg PO HS PRN 04/13/24 [History] predniSONE [Deltasone] 40 mg PO DAILY 5 Days #10 tab 04/20/24 [Rx] Follow up Appointment(s)/Referral(s): Renan Boyd [STAFF PHYSICIAN] - 04/27/24 10:30 am [facility] [NON-STAFF] - 1 Week Prosper Lamar DO [Primary Care Provider] - 1-2 days Triston Dickey MD [STAFF PHYSICIAN] - As Needed (Please call office to schedule removal of Pleurx catheter once drainage has been less than 50 mL for 3 times in a row) Activity/Diet/Wound Care/Special Instructions: PLEURX DISCHARGE INSTRUCTIONS: 1. Home Care is ordered, they will obtain new bottles. 2. May shower after 24 hours, no tub baths/hot tubs. 3. Do not drain more than 1 liter or 1000 mL in 24 hours. 4. New drainage bottle needed with each drainage. 5. Drainage frequency dictated by patient symptoms, may be every day, every other day, weekly, or however often the patient is symptomatic. 6. Please notify FUNERAL PRE ARRANGEMENT COUNSELOR or office if temperature >101F, excessive pain at insertion site, drainage consistency changes to cloudy or smells bad, catheter falls out, or anything else that concerns you. 7. Contact surgery office with weekly drainage amounts. May fax the amounts. 8. Once drainage is less than 50 mL three times in a row, notify the surgery office for possible removal. Surgery office: , fax Patient requires a wheelchair to complete ADLs and is unable to complete her ADLs with a cane or walker secondary to her stage IV metastatic non-small cell lung cancer and worsening respiratory failure resulting in significant hypoxia with minimal exertion. Patient has someone in the home that we will be able to help propel her. Discharge Disposition: HOME WITH HOME HEALTH SERVICES
--- NOTE | 2024-04-22 15:25 | CDI ---
Documentation Clarification Form Date: 04/22/2024 03:14:27 PM From: Maylin Atkins Phone: Admit Date: 04/13/2024 05:06:00 AM Patient Name: Shellie Myrick Visit Number: [id number] Discharge Date: 04/20/2024 06:33:00 PM ATTENTION: The Clinical Documentation Specialists (CDI) and [facility] Coding Staff appreciate your assistance in clarifying documentation. Please respond to the clarification below the line at the bottom and electronically sign. The CDI & [facility] Coding staff will review the response and follow-up if needed. Please note: Queries are made part of the Legal Health Record. If you have any questions, please contact the author of this message via ITS. Dr. Vivi Lucio The final diagnosis of the pathology report states PLEURAL FLUID: Positive for raremetastatic carcinoma. Coding guidelines do not allow coding professionals to code based on pathology results; therefore, clarification is requested. History/risk factors: 68yo F, ACHRF on O2, Lt pleural effusion, Emphysema,bronchitis, bronchiectasis, mucous plugging, Stage IVNSCL Cx w mets to spine & liver, [id number], former smoker Clinical Indicators: Chest x-ray: 7/5 volume loss in the left hemithorax with underlying left-sided pleural effusion/atelectasis Treatment: Insertion of left sided pleurX catheter; Pt undergoing chemorad w Dr Boyd; received Chemo this admission. venue manager sent referral forpalliative care Please clarify if you agree with the pathology report diagnosis of pleural metastatic carcinoma: [ ] Yes [ ] No [ ] Other (please specify) [ ] Unable to determine (Template Last Revised: December 2020) MTDD
--- NOTE | 2024-04-26 23:06 | CDI ---
Documentation Clarification Form Date: 04/26/2024 11:03:39 PM From: Maylin Atkins Phone: Admit Date: 04/13/2024 05:06:00 AM Patient Name: Shellie Myrick Visit Number: [id number] Discharge Date: 04/20/2024 06:33:00 PM ATTENTION: The Clinical Documentation Specialists (CDI) and [facility] Coding Staff appreciate your assistance in clarifying documentation. Please respond to the clarification below the line at the bottom and electronically sign. The CDI & [facility] Coding staff will review the response and follow-up if needed. Please note: Queries are made part of the Legal Health Record. If you have any questions, please contact the author of this message via ITS. Doctor/Provider: Triston Dickey The final diagnosis of the pathology report states pleural fluid: Positive for raremetastatic carcinoma. Coding guidelines do not allow coding professionals to code based on pathology results; therefore, clarification is requested. History/risk factors: 68yo F, ACHRF on O2, Ltpleural effusion,Emphysema,bronchitis,bronchiectasis,mucous plugging, Stage IVNSCL Cx wmets to spineliver, [id number],former smoker Clinical Indicators: Chest x-ray: 7/5 volume loss in the left hemithorax with underlying left-sided pleural effusion/atelectasis Treatment:Insertion of left sided pleurX catheter; Pt undergoing chemorad wDr Deb; receivedChemothis admission. shared services and outsourcing manager sent referral forpalliative care Please clarify if you agree with the pathology report diagnosis ofpleural metastatic carcinoma: [ x] Yes [ ] No [ ] other (please specify) [ ] Unable to determine (Template LastRevised: December 2020) MTDD
== END 2024-04-20 18:33 | disposition home health service (06) | DRG 180 ==
LOC: EC 04:51 → 3SCARD 05:06 → 5NMEDONC 15:01 → 6NMEDSUR 04-18 00:16
PROVIDERS: ADMIT Internal Medicine; ATTEND Internal Medicine
PROC: 0W9B30Z Drainage of Left Pleural Cavity with Drainage Device, Percutaneous Approach (ICD-10-PCS; principal; 2024-04-13 11:25)
PROC: 3E0 Administration, Physiological Systems and Anatomical Regions, Introduction (ICD-10-PCS; 2024-04-14)
DX: C78.2 Secondary malignant neoplasm of pleura (principal); J96.21 Acute and chronic respiratory failure with hypoxia; C34.92 Malignant neoplasm of unspecified part of left bronchus or lung; R64 Cachexia; C79.51 Secondary malignant neoplasm of bone; J47.0 Bronchiectasis with acute lower respiratory infection; M48.54XA Collapsed vertebra, not elsewhere classified, thoracic region, initial encounter for fracture; J44.1 Chronic obstructive pulmonary disease with (acute) exacerbation; C78.7 Secondary malignant neoplasm of liver and intrahepatic bile duct; I31.39 Other pericardial effusion (noninflammatory); J94.8 Other specified pleural conditions; Z68.1 Body mass index [BMI] 19.9 or less, adult; E87.1 Hypo-osmolality and hyponatremia; J98.11 Atelectasis; J91.0 Malignant pleural effusion; E88.09 Other disorders of plasma-protein metabolism, not elsewhere classified; Z99.81 Dependence on supplemental oxygen; E87.8 Other disorders of electrolyte and fluid balance, not elsewhere classified; R54 Age-related physical debility; D63.0 Anemia in neoplastic disease; I34.0 Nonrheumatic mitral (valve) insufficiency; G47.00 Insomnia, unspecified; G89.29 Other chronic pain; M54.9 Dorsalgia, unspecified; Z51.5 Encounter for palliative care; Z79.51 Long term (current) use of inhaled steroids; Z79.52 Long term (current) use of systemic steroids; J98.4 Other disorders of lung; Z87.891 Personal history of nicotine dependence
CPT/HCPCS: 36415; 71045; 71046; 71260; 72157; 73502; 74177; 76705; 80053; 83615; 83735; 84157; 84484; 85027; 87070; 87075; 87205; 88108; 88305; 88341; 88342; 89050; 93005; 93306; 94640; 94760; 96374; 96375; 96376; 99285

== ENCOUNTER 2024-05-09 16:02 | Inpatient (IN) | payer MEDICARE ==
[2024-05-09] MEDS: MORPHINE SULFATE 4 MG/ML SYRINGE IVP STA (18:45)
[2024-05-09 19:23] LABS: ALT 21 U/L (4-34); African American GFR (CKD) >90 (>60 ml/min/1.73 sqM); Albumin 3.7 g/dL (3.5-5.0); Anion Gap 10 mmol/L; Blood Urea Nitrogen 15 mg/dL (7-17); Calcium 9.3 mg/dL (8.4-10.2); Carbon Dioxide 23 mmol/L (22-30); Chloride 102 mmol/L (98-107); Glucose 140 mg/dL (74-99); Non-African American GFR(CKD) >90 (>60 ml/min/1.73 sqM); Sodium 135 mmol/L (137-145); Total Bilirubin 0.8 mg/dL (0.2-1.3); Total Protein 6.4 g/dL (6.3-8.2)
[2024-05-09 19:29] LABS: Anisocytosis Slight; Basophils % (A) 0 %; Eosinophils % (A) 0 %; HCT 32.9 % (34.0-46.0); Lymphocytes # (A) 0.4 k/uL (1.0-4.8); Lymphocytes % (A) 11 %; MCH 32.1 pg (25.0-35.0); MCHC 33.5 g/dL (31.0-37.0); MCV 95.7 fL (80.0-100.0); Macrocytosis Slight; Monocytes # (A) 0.2 k/uL (0-1.0); Monocytes % (A) 6 %; Neutrophils # (A) 3.3 k/uL (1.3-7.7); Neutrophils % (A) 81 %; RBC 3.44 m/uL (3.80-5.40); RDW 18.7 % (11.5-15.5); WBC 4.1 k/uL (3.8-10.6)
[2024-05-09 19:31] LABS: AST 30 U/L (14-36); Alkaline Phosphatase 108 U/L (38-126); NT-Pro-B-Type Natriuretic Pept 99 pg/mL; Potassium 3.9 mmol/L (3.5-5.1)
[2024-05-09] MEDS: HYDROmorphone 1 MG/ML 1 ML SYRINGE IVP STA (19:47)
[2024-05-09 19:55] LABS: Platelet Count 125 k/uL (150-450); Polychromasia Present
--- NOTE | 2024-05-09 20:11 | XR ---
EXAMINATION TYPE: XR chest 2V DATE OF EXAM: 05/09/2024 7:57 PM CLINICAL INDICATION:Female, 68 years old with history of difficulty breathing; [facility] COMPARISON: Chest radiographs from 04/15/2024. TECHNIQUE: XR chest 2V Frontal view of the chest. FINDINGS: Lungs/Pleura: Left-sided airspace opacities in remain present there is mild improved aeration of the left lung. There is no evidence of pleural effusion, focal consolidation, or pneumothorax. Increased interstitial lung markings in the right lung. Pulmonary vascularity: Unremarkable. Heart/mediastinum: The heart is obscured on the left. Musculoskeletal: No acute osseous pathology. There is fixation hardware in the lower cervical spine. Other findings: None Lines/Tubes: Left thoracotomy tube is present without evidence of pneumothorax. IMPRESSION: 1. Left thoracotomy tube without appreciable pneumothorax. 2. Haziness of left lung possibly representing component of pleural effusion, consolidation and/or a irspace disease. Findings have mildly improved since 04/15/2024.
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
[2024-05-09] MEDS ORDERED: NALOXONE 0.4 MG/ML 1 ML VIAL IV PRN (21:29)
[2024-05-09] MEDS: LORazepam 0.5 MG TAB PO SCH (22:22)
[2024-05-09] MEDS: ZOLPIDEM 5 MG TAB PO SCH (22:23)
[2024-05-09] MEDS: HYDROmorphone 1 MG/ML 1 ML SYRINGE IVP PRN (22:32)
[2024-05-10] MEDS ORDERED: IPRATROPIUM-ALBUTEROL 3 ML NEB INHALATION SCH
--- NOTE | 2024-05-10 00:37 | P.PN ---
Subjective Progress Note Date: 05/09/24 Patient is a 68yo F with a history of Stage IV lung adenocarcinoma, COPD (on 4.5L NC at home), recurrent pleural effusions (Pleurx catheter), left toe amputation who comes into the ED for shortness of breath. Patient is known to us and was last seen in the 04/15 for SOB secondary to pleural effusion and COPD exacerbation. Patient was being seen by home health nurse at the time, with increased work of breathing, O2 sat at 89% at the time and was advised to go to ED and patient agreed. She denies fever, night sweats, loss of consciousness, chest pain, orthopnea, PND or peripheral edema. She is seen by Dr. Boyd and is on keytruda for chemotherapy, last session was 04/29/2024. Her home medications are symbicort, ativan, norco, ambien, folic acid, and duoneb. At this time, patient declines hospice. Chest Xray: left thoracotomy without appreciable pneumothorax. Hazy left lung possibly due to pleural effusion, consolidation, and/or air space disease. Improved from last CXR on 04/15. CBC: hgb 11 hct 32.9 plt 125. CMP Na 135 glucose 140 ED documentation reviewed and case discussed with ED provider. Review of systems: Pertinent positives and negatives as discussed in HPI, a complete review of systems was performed and all other systems are negative. PMHx: neck surgery, back surgery, left toe amputation. Hysterectomy due to fibroids. No known allergies. FHx: Siblings, Father and Mother - DM Father- bone CA () Social history: Tobacco: 50 pack years Alcohol: denies alcohol intake Recreational drugs: denies any drug use Travel: no recent travel history Occupation: no longer working Physical examination: Vital signs reviewed General: non toxic, no distress, appears at stated age, normal weight Derm: no unusual rashes/lesions, warm Head: atraumatic, normocephalic, symmetric Eyes: EOMI, no lid lag, anicteric sclera, pupils equal round reactive to light ENT: Nose and ears atraumatic Neck: No cervical lymphadenopathy, trachea midline, supple Mouth: no lip lesion, mucus membranes moist Cardiovascular: S1S2 reg rate, reg rhythm, no murmur, positive dorsalis pedis pulse bilateral, no edema Lungs: bilateral decreased breath sounds. Bilateral rhonci, crackles and wheezing in all ball. no accessory muscle use Abdominal: soft, nontender to palpation, no guarding, Pleurx port on left lower quadrant Ext: muscle strength 5 out of 5 in bilateral upper extremities and right lower extremity grossly. 4/5 on left lower extremity. muscle atrophy on all extremities, no contractures Neuro: CN II-XI grossly intact, no gross focal neuro deficits Psych: Alert, oriented, appropriate affect Assessment/Plan: #. Shortness of breath in the setting of chronic hypoxic failure, with COPD secondary to underlying malignancy and pleural effusion -Patient currently on 4L NC. -Consult pulmonology -Consult oncology -Continue symbicort and duoneb -Give solumedrol IV -Check procalcitonin #. Stage IV Adenocarcinoma, with debility, cachexia and failure to thrive -Patient 4/5 muscle strength on lower extremity and muscle atrophy -Consult axminster rug setter -Consult physical therapy #. Anemia, secondary to chronic disease, at baseline -will monitor CBC #. Thrombocytopenia -Patient denies any bleeding, bruising, or petechiae -Will monitor CBC #. Hyponatremia, mild, possible secondary to poor oral intake -Consult [place] rug setter -Advise oral intake #. Hyperglycemia -Check HbA1c DVT prophylaxis: Lovenox 30mg SQ OD GI prophylaxis: Protonix The patient is admitted with an anticipated [] than 2 midnight stay for evaluation of [] CODE STATUS: FULL Discussed with: [] Anticipated discharge place: [] Objective - Vital Signs Vital signs: Vital Signs Temp 97.9 F 05/09/24 18:59 Pulse 95 05/09/24 22:06 Resp 18 05/09/24 22:06 BP 122/69 05/09/24 22:06 Pulse Ox 97 05/09/24 22:06 FiO2 Intake & Output 05/09/24 05/09/24 05/10/24 06:59 18:59 06:59 Weight 44.906 kg - Labs CBC & Chem 7: 05/09/24 18:52 05/09/24 18:52 Labs: Abnormal Lab Results - Last 24 Hours (Table) 05/09/24 05/09/24 Range/Units 18:52 18:52 RBC 3.44 L (3.80-5.40) m/uL Hgb 11.0 L (11.4-16.0) gm/dL Hct 32.9 L (34.0-46.0) % RDW 18.7 H (11.5-15.5) % Plt Count 125 L D (150-450) k/uL Lymphocytes # 0.4 L (1.0-4.8) k/uL Sodium 135 L (137-145) mmol/L Creatinine 0.24 L (0.52-1.04) mg/dL Glucose 140 H (74-99) mg/dL
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
[2024-05-10] MEDS: PANTOPRAZOLE 40 MG TABLET PO SCH (06:43)
[2024-05-10] MEDS: IPRATROPIUM-ALBUTEROL 3 ML NEB INHALATION SCH (07:45)
[2024-05-10] MEDS: SYMBICORT 160-4.5 MCG INHALER INHALATION SCH (07:45)
[2024-05-10 07:49] LABS: Anisocytosis Slight; Basophils % (A) 0 %; Eosinophils % (A) 0 %; HCT 26.7 % (34.0-46.0); Lymphocytes # (A) 1.1 k/uL (1.0-4.8); Lymphocytes % (A) 23 %; MCH 32.3 pg (25.0-35.0); MCHC 33.5 g/dL (31.0-37.0); MCV 96.5 fL (80.0-100.0); Macrocytosis Slight; Mean Platelet Volume 8.2; Monocytes # (A) 0.4 k/uL (0-1.0); Monocytes % (A) 9 %; Neutrophils # (A) 3.1 k/uL (1.3-7.7); Neutrophils % (A) 65 %; Platelet Count 134 k/uL (150-450); RBC 2.77 m/uL (3.80-5.40); RDW 18.2 % (11.5-15.5); WBC 4.7 k/uL (3.8-10.6)
[2024-05-10 08:25] LABS: African American GFR (CKD) >90 (>60 ml/min/1.73 sqM); Anion Gap 5 mmol/L; Blood Urea Nitrogen 20 mg/dL (7-17); Calcium 9.3 mg/dL (8.4-10.2); Carbon Dioxide 31 mmol/L (22-30); Chloride 100 mmol/L (98-107); Glucose 147 mg/dL (74-99); Non-African American GFR(CKD) >90 (>60 ml/min/1.73 sqM); Potassium 4.1 mmol/L (3.5-5.1); Sodium 136 mmol/L (137-145)
[2024-05-10] MEDS: HYDROcodone/APAP 10-325MG 1 EACH TAB PO PRN (09:00)
[2024-05-10] MEDS: FOLIC ACID 1 MG TAB PO SCH (09:00)
[2024-05-10] MEDS: methylPREDNISolone SOD SUCCI 40 MG/ML 1 ML VIAL IV SCH (09:00)
[2024-05-10] MEDS: ENOXAPARIN 40 MG/0.4 ML SYRINGE SQ SCH (09:32)
--- NOTE | 2024-05-10 11:14 | P.PN ---
Subjective Progress Note Date: 05/10/24 Principal diagnosis: 05/10 patient is a 68-year-old female with past medical history of stage IV lung adenocarcinoma on chemotherapy with carboplatin, Keytruda and Alimta, COPD with chronic hypoxic respiratory failure on home oxygen 4.5L, recurrent malignant left-sided pleural effusions, status post Pleurx catheter placement and left toe amputation who came to the ED last night with the complaint of shortness of breath with oxygen saturation of 89%. She was last admitted on April 13 for the same reason of COPD exacerbation and was decompensated, was in the ICU, got better and discharged on April 20. She has a Pleurx catheter which is drained every 2 to 3 days, last drained 50ml 2 days ago. Chest x-ray done yesterday shows left thoracotomy tube without appreciable pneumothorax and haziness of the left lung possibly representing component of pleural effusion, consolidation and/or air space disease. Today the patient appears cachectic and complains of generalized weakness, fatigue, coughing with minimal sputum production and pain. She is on 4 L of oxygen via nasal cannula. Pulmonology recommended to continue the combination of Symbicort inhaler, bronchodilators and IV Solu-Medrol and continue with the Pleurx catheter drainage schedule. She is put on [place] as n eeded for pain management, zinc oxide for bedsore. She also complains of a bedsore. He denies chest pain, palpitation, headache, shortness of breath and is doing well on 4 L of oxygen. Labs showed hemoglobin 9, platelet 134, hematocrit 26.7, sodium 136, BUN 20, creatinine 1.39 and glucose 147. P rocalcitonin pending. Patient denied hospice consulted. Will continue to monitor and make recommendations. Physical Exam: General: appears cachectic and in pain Derm: warm, dry, intact Head: atraumatic, normocephalic, symmetric Eyes: EOMI, no lid lag, anicteric sclera Mouth: no lip lesion, mucus membranes moist Cardiovascular: S1 S2 reg, no murmur, rubs, or gallops Lungs: scattered rhonchi, no rales, no accessory muscle use Abdominal: tender to palpation in RUQ and back, soft, no appreciable organomegaly Extremities: no edema, no contractures Neuro: Alert, Oriented, CNII-XII grossly intact, gait normal Psych: well appearing, appropriate affect Assessment and plan: Acute on chronic hypoxemic respiratory failure, secondary to acute COPD exacerbation, advanced pulmonary adenocarcinoma and recurrent left-sided pleural effusion: Continue Ipratropium-albuterol nebulizer 3 ml, budesonide-formoterol 2 puffs and IV Solu-Medrol 40 mg every 8 hour. Continue with the Pleurx catheter drainage schedule. Continue 4 L oxygen via nasal cannula. Check procalcitonin level Stage IV metastatic lung adenocarcinoma, cachexia and failure to thrive: Patient is on combination chemotherapy with carboplatin, Keytruda, Alimta Ensure 3 times daily will be started today Pain management: [place] as needed Bedsore: Zinc oxide ointment PRN has been ordered Wound consult will be ordered if needed Anemia: Hemoglobin today is 9 Will continue to monitor CBC Patient put on Ensure 3 times daily Mild hyponatremia: Ensure 3 times daily will be started today Will continue to monitor BMP Thrombocytopenia likely secondary to chemotherapy: Will continue to monitor CBC I have seen and evaluated the patient today. Discussed with the resident and agree with the residents subjective and objective as documented in the resident's note. The assessment and plan was discussed and outlined as below. Patient reports continued SOB. Currently on 4L NC (baseline is 4.5L NC). Acute on chronic hypoxic respiratory failure secondary to acute COPD exacerbation in the setting of pulmonary adenocarcinoma and recurrent left-sided pleural effusion DuoNeb QID scheduled and Q2H PRN for SOB/wheezing. Symbicort 2 INH BID. SoluMedrol 60 mg IV Q6H. Supplemental O2 to maintain O2 sat > 92%. CTA chest ordered by Oncology to rule out PE. Telemetry monitoring. Pro-hilaria ordered and pending. Stage IV AdenoCA of the lung: Schedule [place] rather than PRN. Dilaudid 1 mg IV Q3H PRN for severe pain. Oncology consulted. Failure to thrive: Add Ensure TID with meals. Normocytic anemia: Acute drop from 05/09 CBC. Likely due to chronic disease. Obtain iron studies, B12 and Folate. Transfuse if Hg < 7. Thrombocytopenia Hyponatremia Metabolic alkalosis Hyperglycemia Objective - Vital Signs Vital signs: Vital Signs Temp 97.4 F L 05/10/24 03:57 Pulse 64 05/10/24 07:57 Resp 20 05/10/24 03:57 BP 143/79 05/10/24 03:57 Pulse Ox 97 05/10/24 07:47 FiO2 Intake & Output 05/09/24 05/10/24 05/10/24 18:59 06:59 18:59 Intake Total 120 Balance 120 Weight 44.906 kg 59.2 kg Intake: Oral 120 Other: Voiding Method Bedside Commode # Voids 1 - Labs CBC & Chem 7: 05/10/24 06:54 05/10/24 06:54 Labs: Abnormal Lab Results - Last 24 Hours (Table) 05/09/24 05/09/24 05/10/24 Range/Units 18:52 18:52 06:54 RBC 3.44 L 2.77 L (3.80-5.40) m/uL Hgb 11.0 L 9.0 L D (11.4-16.0) gm/dL Hct 32.9 L 26.7 L (34.0-46.0) % RDW 18.7 H 18.2 H (11.5-15.5) % Plt Count 125 L D 134 L (150-450) k/uL Lymphocytes # 0.4 L (1.0-4.8) k/uL Sodium 135 L (137-145) mmol/L Carbon Dioxide (22-30) mmol/L BUN (7-17) mg/dL Creatinine 0.24 L (0.52-1.04) mg/dL Glucose 140 H (74-99) mg/dL 05/10/24 Range/Units 06:54 RBC (3.80-5.40) m/uL Hgb (11.4-16.0) gm/dL Hct (34.0-46.0) % RDW (11.5-15.5) % Plt Count (150-450) k/uL Lymphocytes # (1.0-4.8) k/uL Sodium 136 L (137-145) mmol/L Carbon Dioxide 31 H (22-30) mmol/L BUN 20 H (7-17) mg/dL Creatinine 0.39 L (0.52-1.04) mg/dL Glucose 147 H (74-99) mg/dL
[2024-05-10 11:51] LABS: Glucose,Whole Blood 178 mg/dL (70-110)
--- NOTE | 2024-05-10 11:59 | CT ---
EXAMINATION TYPE: CT chest angio for PE CT DLP: 192.7 mGycm, Automated exposure control for dose reduction was used. DATE OF EXAM: 05/10/2024 11:12 AM COMPARISON: Chest radiograph from same day. Multiple CTs of the chest with most recent on . CLINICAL INDICATION:Female, 68 years old with history of Hx malignancy, pain with inspiration; HX risa g cancer, pain with inspiration TECHNIQUE/CONTRAST: CTA scan of the thorax is performed without and with IV Contrast, patient injected with 100 ml mL of Isovue 370, MIP images are created and reviewed these are created on a separate workstation.. FINDINGS: Pulmonary Artery: There is no evidence for a filling defect within the pulmonary vasculature to sugge st acute pulmonary embolism. The pulmonary artery is of normal size. Lungs/Pleura: Moderate amount of atelectasis in the left lower lobe is improved compared to prior cally dy of 04/17/2024. Moderate left pleural effusion appears improved since the prior study but still moderate amount persists. Airway: Large airways are patent. Heart: Heart is within normal limits for size. Vasculature: No evidence of aortic aneurysm. Mediastinum: No gross evidence of adenopathy. Musculoskeletal: No acute osseous abnormalities Soft Tissues: Unremarkable. Lower neck: No significant findings. Upper Abdomen: No significant findings. IMPRESSION: 1. Left lung apex mass no longer visualized and is likely surgically removed with leftward deviation of the chest. There is pulmonary vascular congestion within the left lung. 2. There is trace left hydropneumothorax. 3. Left lower lung airspace opacities superimposed on small to moderate left pleural effusion and at electasis. 4. Sclerotic focus within the manubrium attention follow-up PET/CT to rule out metastatic lesion. N ew from 03/09/2024. 5. compression deformity of T12 vertebrae with 25% height loss 6. No evidence of pulmonary embolism.
[2024-05-10] MEDS: NYSTATIN 100,000 UNIT/ML SUSP 500,000 UNIT/5 ML CUP PO SCH (12:40)
[2024-05-10] MEDS: methylPREDNISolone SOD SUCCI 125 MG/2 ML VIAL IV SCH (12:40)
[2024-05-10 16:50] LABS: Glucose,Whole Blood 239 mg/dL (70-110)
[2024-05-10] MEDS: ZINC OXIDE 20% OINT 28.4 GM TUBE TOPICAL PRN (18:11)
[2024-05-10] MEDS: IPRATROPIUM-ALBUTEROL 3 ML NEB INHALATION PRN (18:20)
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
[2024-05-10 21:00] LABS: Glucose,Whole Blood 235 mg/dL (70-110)
[2024-05-11 05:56] LABS: Glucose,Whole Blood 177 mg/dL (70-110)
[2024-05-11 07:38] LABS: Anisocytosis Slight; Basophils % (A) 0 %; Eosinophils % (A) 0 %; HCT 25.2 % (34.0-46.0); HGB 8.1 gm/dL (11.4-16.0); Hypochromasia Slight; Lymphocytes # (A) 0.7 k/uL (1.0-4.8); Lymphocytes % (A) 13 %; MCH 32.1 pg (25.0-35.0); MCHC 32.2 g/dL (31.0-37.0); MCV 99.8 fL (80.0-100.0); Macrocytosis Moderate; Mean Platelet Volume 8.4; Monocytes # (A) 0.3 k/uL (0-1.0); Monocytes % (A) 6 %; Neutrophils # (A) 4.6 k/uL (1.3-7.7); Neutrophils % (A) 80 %; Platelet Count 111 k/uL (150-450); RBC 2.52 m/uL (3.80-5.40); RDW 18.9 % (11.5-15.5); WBC 5.8 k/uL (3.8-10.6)
[2024-05-11 07:50] LABS: ALT 22 U/L (4-34); AST 29 U/L (14-36); African American GFR (CKD) >90 (>60 ml/min/1.73 sqM); Albumin 3.3 g/dL (3.5-5.0); Alkaline Phosphatase 105 U/L (38-126); Anion Gap 3 mmol/L; Blood Urea Nitrogen 18 mg/dL (7-17); Carbon Dioxide 28 mmol/L (22-30); Chloride 99 mmol/L (98-107); Glucose 201 mg/dL (74-99); Non-African American GFR(CKD) >90 (>60 ml/min/1.73 sqM); Potassium 4.4 mmol/L (3.5-5.1); Sodium 130 mmol/L (137-145); Total Bilirubin 0.3 mg/dL (0.2-1.3); Total Protein 5.8 g/dL (6.3-8.2)
--- NOTE | 2024-05-11 08:52 | P.PN ---
Subjective Progress Note Date: 05/11/24 Principal diagnosis: 05/10 patient is a 68-year-old female with past medical history of stage IV lung adenocarcinoma on chemotherapy with carboplatin, Keytruda and Alimta, COPD with chronic hypoxic respiratory failure on home oxygen 4.5L, recurrent malignant left-sided pleural effusions, status post Pleurx catheter placement and left toe amputation who came to the ED last night with the complaint of shortness of breath with oxygen saturation of 89%. She was last admitted on April 13 for the same reason of COPD exacerbation and was decompensated, was in the ICU, got better and discharged on April 20. She has a Pleurx catheter which is drained every 2 to 3 days, last drained 50ml 2 days ago. Chest x-ray done yesterday shows left thoracotomy tube without appreciable pneumothorax and haziness of the left lung possibly representing component of pleural effusion, consolidation and/or air space disease. Today the patient appears cachectic and complains of generalized weakness, fatigue, coughing with minimal sputum production and pain. She is on 4 L of oxygen via nasal cannula. Pulmonology recommended to continue the combination of Symbicort inhaler, bronchodilators and IV Solu-Medrol and continue with the Pleurx catheter drainage schedule. She is put on [facility] as n eeded for pain management, zinc oxide for bedsore. She also complains of a bedsore. He denies chest pain, palpitation, headache, shortness of breath and is doing well on 4 L of oxygen. Labs showed hemoglobin 9, platelet 134, hematocrit 26.7, sodium 136, BUN 20, creatinine 1.39 and glucose 147. P rocalcitonin pending. Patient denied hospice consulted. Will continue to monitor and make recommendations. 05/11 68-year-old female seen in room 373. Patient continues to be on 4 L of oxygen and is doing well. Procalcitonin level is 0.18. She complains of shortness of breath and lightheadedness. Chest CTA ruled out PE. Chest CTA shows pulmonary vascular congestion within the left lung, trace left hydropneumothorax, small to moderate left pleural effusion and atelectasis, sclerotic focus within the manubrium requiring follow-up PET/CT to rule out metastatic lesion, compression deformity of T12 vertebral with 25% height loss. She does complain of chronic pain in her back and neck. We will consult ortho. Denies coughing, chest pain, palpitations. Labs significant for hemoglobin 8.1, hematocrit 25.2, platelet 111, sodium 130, BUN 18, creatinine 0.28, glucose 201, total protein 5.8, albumin 3.3. Iron studies are still pending. Will continue to monitor and make recommendations. Physical Exam: General: appears cachectic and in pain Derm: warm, dry, intact Head: atraumatic, normocephalic, symmetric Eyes: EOMI, no lid lag, anicteric sclera Mouth: no lip lesion, mucus membranes moist Cardiovascular: S1 S2 reg, no murmur, rubs, or gallops Lungs: scattered rhonchi, no rales, no accessory muscle use Abdominal: tender to palpation in RUQ and back, soft, no appreciable organomegal y Extremities: no edema, no contractures Neuro: Alert, Oriented, CNII-XII grossly intact, gait normal Psych: well appearing, appropriate affect Assessment and plan: Acute on chronic hypoxemic respiratory failure, secondary to acute COPD exacerbation, advanced pulmonary adenocarcinoma and recurrent left-sided pleural effusion: Procalcitonin 0.18 Chest CTA ruled out PE Chest CTA shows pulmonary vascular congestion within the left lung, trace left hydropneumothorax, small to moderate left pleural effusion and atelectasis, sclerotic focus within the manubrium requiring follow-up PET/CT to rule out metastatic lesion Continue 4 L oxygen via nasal cannula to maintain O2 saturation above 92%. Co ntinue Ipratropium-albuterol nebulizer 3 ml, budesonide-formoterol 2 puffs and IV Solu-Medrol increased to 60 mg every 6 hour. Continue with the Pleurx catheter drainage schedule. Stage IV metastatic lung adenocarcinoma: Status post 4 cycles of combination chemotherapy with Carboplatin, Keytruda, Alimta. Cachexia and failure to thrive, secondary to stage IV adenocarcinoma: Continue Ensure 3 times daily Chronic back pain: Chest CTA shows compression deformity of T12 vertebra with 25% height loss. Consult Ortho. Hyponatremia: Na is decreasing and today it is 130. Patient complains of lightheadedness possibly secondary to dehydration. She will be started on Normal saline at 50cc/hr. Serum osmolaity, urine osmolality, serun sodium and urine sodium ordered. Will continue to monitor BMP. Consult PT/OT Pain management: Continue [facility] as needed. Normocytic Anemia: Hemoglobin has progressively declined and today it is 8.1 Will continue to monitor CBC Thrombocytopenia likely secondary to chemotherapy: Will continue to monitor CBC Hyperglycemia: Patient will be started on low dose insulin sliding scale today. Labs show glucose 201. HbA1c 6.5% Metabolic alkalosis: Bedsore: Zinc oxide ointment PRN has been ordered Wound consult will be ordered if needed I have seen and evaluated the patient today. Discussed with the resident and agree with the residents subjective and objective as documented in the resident's note. The assessment and plan was discussed and outlined as below. Patient reports continued SOB. Currently on 5L NC (baseline is 4.5L NC). CTA chest shows left lung pulmonary vascular congestion, trace left hydropneumothorax, LLL opacities superimposed on small-mod left pleural effusion and atelectasis, sclerotic focus manubrium, T12 compression deformity. Procal is 0.18. Acute on chronic hypoxic respiratory failure secondary to acute COPD exace rbation in the setting of stage IV pulmonary adenocarcinoma and recurrent left- sided pleural effusion DuoNeb QID scheduled and Q2H PRN for SOB/wheezing. Symbicort 2 INH BID. SoluMedrol 60 mg IV Q6H. Supplemental O2 to maintain O2 sat > 92%. CTA chest results as above. Telemetry monitoring. Pro-hilaria negative. Oncology and Pulmonary on board. Normocytic anemia: Acute drop from 05/09 CBC. Trending down. Likely due to chronic disease. Follow iron studies, B12 and Folate. Transfuse if Hg < 7. Hyponatremia with prerenal azotemia: Likely dehydration. Obtain Serum + Urine Osm, Vanessa. Trial of NS at 50 cc/hr. T12 compression deformity with intractable pain: Schedule [facility] rather than PRN. Dilaudid 1 mg IV Q3H PRN for severe pain. Ortho spine consult. Possible pain management consult. Diabetes mellitus with hyperglycemia: A1c 6.5. Start low dose ISS. Accuchecks ACHS. Hypoglycemic precautions. Failure to thrive: Add Ensure TID with meals. Consult PT and OT. Thrombocytopenia Objective - Vital Signs Vital signs: Vital Signs Temp 97.8 F 05/11/24 04:00 Pulse 96 05/11/24 04:00 Resp 18 05/11/24 04:00 BP 109/63 05/11/24 04:00 Pulse Ox 99 05/11/24 04:00 FiO2 Intake & Output 05/10/24 05/11/24 05/11/24 18:59 06:59 18:59 Intake Total 900 240 Balance 900 240 Weight 42.638 kg 43.8 kg Intake: Oral 900 240 Other: Voiding Method Bedside Commode External Catheter # Voids 1 - Labs CBC & Chem 7: 05/11/24 07:15 05/11/24 07:15 Labs: Abnormal Lab Results - Last 24 Hours (Table) 05/10/24 05/10/24 05/10/24 Range/Units 06:54 06:54 11:49 RBC (3.80-5.40) m/uL Hgb (11.4-16.0) gm/dL Hct (34.0-46.0) % RDW (11.5-15.5) % Plt Count (150-450) k/uL Lymphocytes # (1.0-4.8) k/uL Sodium 136 L (137-145) mmol/L Carbon Dioxide 31 H (22-30) mmol/L BUN 20 H (7-17) mg/dL Creatinine 0.39 L (0.52-1.04) mg/dL Glucose 147 H (74-99) mg/dL POC Glucose (mg/dL) 178 H (70-110) mg/dL Hemoglobin A1c 6.5 H (<=6.0) % Total Protein (6.3-8.2) g/dL Albumin (3.5-5.0) g/dL 05/10/24 05/10/24 05/11/24 Range/Units 16:48 20:56 05:50 RBC (3.80-5.40) m/uL Hgb (11.4-16.0) gm/dL Hct (34.0-46.0) % RDW (11.5-15.5) % Plt Count (150-450) k/uL Lymphocytes # (1.0-4.8) k/uL Sodium (137-145) mmol/L Carbon Dioxide (22-30) mmol/L BUN (7-17) mg/dL Creatinine (0.52-1.04) mg/dL Glucose (74-99) mg/dL POC Glucose (mg/dL) 239 H 235 H 177 H (70-110) mg/dL Hemoglobin A1c (<=6.0) % Total Protein (6.3-8.2) g/dL Albumin (3.5-5.0) g/dL 05/11/24 05/11/24 Range/Units 07:15 07:15 RBC 2.52 L (3.80-5.40) m/uL Hgb 8.1 L (11.4-16.0) gm/dL Hct 25.2 L (34.0-46.0) % RDW 18.9 H (11.5-15.5) % Plt Count 111 L (150-450) k/uL Lymphocytes # 0.7 L (1.0-4.8) k/uL Sodium 130 L (137-145) mmol/L Carbon Dioxide (22-30) mmol/L BUN 18 H (7-17) mg/dL Creatinine 0.28 L (0.52-1.04) mg/dL Glucose 201 H (74-99) mg/dL POC Glucose (mg/dL) (70-110) mg/dL Hemoglobin A1c (<=6.0) % Total Protein 5.8 L (6.3-8.2) g/dL Albumin 3.3 L (3.5-5.0) g/dL
[2024-05-11] MEDS: SODIUM CHLORIDE 0.9% 1,000 ML IV SCH (10:55)
[2024-05-11] MEDS: HYDROcodone/APAP 10-325MG 1 EACH TAB PO SCH ×2 (10:58→12:51)
[2024-05-11] MEDS ORDERED: SODIUM CHLORIDE 0.9% 1,000 ML IV SCH (11:15)
[2024-05-11 11:33] LABS: Glucose,Whole Blood 158 mg/dL (70-110)
--- NOTE | 2024-05-11 11:36 | CDI ---
Documentation Clarification Form Date: 05/11/2024 11:00:09 AM From: Sharon Mendieta RN, CCDS Phone: [phone] Admit Date: 05/09/2024 09:36:00 PM Patient Name: Shellie Myrick Visit Number: [id number] Discharge Date: ATTENTION: The Clinical Documentation Specialists (CDI) and [facility] Coding Staff appreciate your assistance in clarifying documentation. Please respond to the clarification below the line at the bottom and electronically sign. The CDI & [facility] Coding staff will review the response and follow-up if needed. Please note: Queries are made part of the Legal Health Record. If you have any questions, please contact the author of this message via ITS. Doctor/Provider: Greta Moreno pressure ulcer stage II, Buttock is documented in the nursing Wound Care assessment. Additional clarification regarding the stage of the pressure ulcer is requested. History/Risk Factors: Left bronchus and lung cancer, Former smoker Clinical Indicators: 68-year-old female with a PMH of Stage IV lung adenocarcinoma s/p multiple rounds of chemotherapy, currently on Keytruda. She presents with shortness of breath. She complains of a bedsore. Location: Buttock Wound description: Skin color-Erythema Treatment: Zinc oxide PRN (bedsore Ensure TID Absorbent under pad Skin Intervention: check hourly Please clarify the stage of pressure ulcer, if known: [ x ] Stage 2 Buttock Pressure Ulcer, Present on admission [ ] Other condition, please specify [ ] Unable to determine Clinical Definitions: Stage 1 Pressure Ulcer: intact skin, non-blanching redness of local area Stage 2 Pressure Ulcer: Partial thickness, loss of dermis, pink wound bed Stage 3 Pressure Ulcer: Full thickness tissue loss Stage 4 Pressure Ulcer: Full thickness tissue loss with exposed bone, tendon, or muscle. Unstageable pressure ulcer: Full thickness tissue loss in which the base of the ulcer is covered by slough (yellow, stroud, millan, green or brown) and/or eschar (stroud, brown or black) in the wound bed. (Template Last Revised: December 2020) MTDD
[2024-05-11] MEDS ORDERED: DEXTROSE 50% SYRINGE 50 ML IVP PRN ×2 (11:43)
[2024-05-11] MEDS: INSULIN ASPART (NovoLOG) 100 UNIT/ML VIAL SQ SCH (12:52)
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
[2024-05-11 17:01] LABS: Glucose,Whole Blood 191 mg/dL (70-110)
[2024-05-11 17:17] LABS: % Iron Saturation 28.63 (12.00-45.00); Iron 69 UG/DL (50-170); Total Iron Binding Capacity 241 UG/DL (228-460)
--- NOTE | 2024-05-11 17:17 | P.PN ---
Subjective Progress Note Date: 05/11/24 Patient is a 68-year-old white female with past medical history significant for COPD, previous tobacco dependence, and recent diagnosis of metastatic non-small cell lung cancer. Her primary care provider is Dr. Prosper Lamar. In October, she was having issues with a chronic cough. She was a chronic smoker and has a component of moderate COPD. She had a follow-up chest CT with some abnormal findings, a left perihilar mass measuring 7.5 x 3.2 cm. Follow-up PET scan was compatible with primary left upper lung malignancy with metastatic disease to the contralateral lung, the mediastinum, left neck, left pleura with associated malignant effusion, and within the liver. A navigational robotic bronchoscopy performed on 12/17/2023. The biopsy of the left upper lobe mass was consistent with non-small cell lung cancer, pulmonary adenocarcinoma. As well as, the right upper lobe pulmonary nodule, also consistent with adenocarcinoma. Endobronchial ultrasound biopsy of the subcarinal station 7 lym ph node was positive for non-small cell lung cancer. She is now established with oncology, her oncologist is Dr. Boyd. She was started on a combination of carboplatin/Alimta/Keytruda. I believe she has underwent 3 cycles so far. Note that the patient had a recent hospitalization at the beginning of April, for a recurrent malignant pleural effusion. She did undergo Pleurx catheter insertion on April 13. She has been draining her pleural X catheter every 2 to 3 days, most recently only 50 cc of drainage. No change in drainage consistency or color. She returns to the emergency department with worsening shortness of breath late last night. Chest x-ray showing left Pleurx catheter in place, without appreciable pneumothorax. There is haziness in the left lung, mildly improved since previous image. Likely representing a component of residual pleural effusion. Consolidation and/or airspace disease is not completely excluded. CBC: WBC count 4.1, hemoglobin 11, hematocrit 32.9, platelets 125,000. CMP: Sodium 135, potassium 3.9, chloride 102, serum bicarb 23, BUN 15, creatinine 0.24, glucose 140. Lactic 1.5. LFTs unremarkable. Troponin less than 0.012. NT proBNP low. Patient is currently sitting up in bed, on 5 L/min nasal cannula, in no acute respiratory distress. Her SpO2 is 98%. She does wear home oxygen. She states that her shortness of breath has been progressively worsening. She continues to drain her Pleurx catheter every 2 to 3 days, only 50 mL of drainage was removed last. No significant purulence or change in color. Denies sick contacts. She denies any change in her chronic cough. Occasional yellow sputum production. No hemoptysis. No fevers. No chest pain. Her appetite has been poor. Reporting worsening generalized weakness. Hemodynamics are stable. The patient is seen today May 11, 2024 in follow-up on the selective care unit. She is currently sitting up in bed. Awake and alert in no acute distress. She is still dyspneic with minimal exertion. Dyspneic with conversation. She is maintaining O2 saturations in the 90s on 4 L/min per nasal cannula. Afebrile. Hemodynamically stable. CT angiogram revealed no evidence of pulmonary embolism. There is pulmonary vascular congestion within the left lung. Trace left hydropneumothorax. White count 5.8. Hemoglobin 8.1. Platelets 111. Sodium 130. Potassium 4.4. Bicarb 28. BUN 18. Creatinine 0.28. Glucose 201. She remains on DuoNeb inhalations, Symbicort, Solu-Medrol. Lovenox for DVT prophylaxis. Objective - Vital Signs Vital signs: Vital Signs Temp 98.0 F 05/11/24 08:20 Pulse 99 05/11/24 16:00 Resp 18 05/11/24 16:00 BP 116/72 05/11/24 16:00 Pulse Ox 96 05/11/24 16:00 FiO2 Intake & Output 05/10/24 05/11/24 05/11/24 18:59 06:59 18:59 Intake Total 900 240 240 Output Total 205 Balance 900 240 35 Weight 42.638 kg 43.8 kg Intake: Oral 900 240 240 Output: Chest Tube Drainage 5 Pleural Catheter Left Mid 5 -Clavicular Chest Urine 200 Other: Voiding Method Bedside Commode External Catheter External Catheter # Voids 1 - Exam GENERAL EXAM: Alert, 68-year-old female, frail and cachectic, 4 L nasal cannula, fairly comfortable in no apparent distress. HEAD: Normocephalic and atraumatic EYES: Normal reaction of pupils, equal size. NOSE: Clear with pink turbinates. THROAT: No erythema or exudates. NECK: No masses, no JVD. CHEST: No chest wall deformity. Left Pleurx catheter insertion site clean and dry. LUNGS: Equal air entry with scattered expiratory wheezing bilaterally. Markedly diminished left basilar lung sounds. CVS: S1 and S2 normal with no audible murmur, regular rhythm. No extra heart sounds ABDOMEN: No hepatosplenomegaly, active bowel sounds, no guarding or rigidity. SPINE: No scoliosis or deformity. No point tenderness. SKIN: No rashes CENTRAL NERVOUS SYSTEM: No focal deficits, tone is normal in all 4 extremities. EXTREMITIES: There is no peripheral edema, clubbing, or cyanosis. Peripheral pulses are intact. - Labs CBC & Chem 7: 05/11/24 07:15 05/11/24 07:15 Labs: Abnormal Lab Results - Last 24 Hours (Table) 05/10/24 05/11/24 05/11/24 Range/Units 20:56 05:50 07:15 RBC (3.80-5.40) m/uL Hgb (11.4-16.0) gm/dL Hct (34.0-46.0) % RDW (11.5-15.5) % Plt Count (150-450) k/uL Lymphocytes # (1.0-4.8) k/uL Sodium 130 L (137-145) mmol/L BUN 18 H (7-17) mg/dL Creatinine 0.28 L (0.52-1.04) mg/dL Glucose 201 H (74-99) mg/dL POC Glucose (mg/dL) 235 H 177 H (70-110) mg/dL Total Protein 5.8 L (6.3-8.2) g/dL Albumin 3.3 L (3.5-5.0) g/dL 05/11/24 05/11/24 05/11/24 Range/Units 07:15 11:29 16:57 RBC 2.52 L (3.80-5.40) m/uL Hgb 8.1 L (11.4-16.0) gm/dL Hct 25.2 L (34.0-46.0) % RDW 18.9 H (11.5-15.5) % Plt Count 111 L (150-450) k/uL Lymphocytes # 0.7 L (1.0-4.8) k/uL Sodium (137-145) mmol/L BUN (7-17) mg/dL Creatinine (0.52-1.04) mg/dL Glucose (74-99) mg/dL POC Glucose (mg/dL) 158 H 191 H (70-110) mg/dL Total Protein (6.3-8.2) g/dL Albumin (3.5-5.0) g/dL Assessment and Plan Assessment: Acute on chronic hypoxemic respiratory failure, likely multifactorial, secondary to acute COPD exacerbation, advanced pulmonary adenocarcinoma, and recurrent left-sided pleural effusion. Chest x-ray showing left Pleurx catheter in place, without appreciable pneumothorax. There is haziness in the left lung, mildly improved since previous image. Likely representing a component of residual pleural effusion. Consolidation and/or airspace disease is not completely excluded. Recurrent left-sided pleural effusion, malignant, cytology positive for rare metastatic cells, status post left-sided Pleurx catheter 04/13/24 Stage IV metastatic lung adenocarcinoma, patient found to have a left 7.5 x 3.2 cm left perihilar mass back in October,. Follow-up PET scan was compatible with primary left upper lung malignancy with metastatic disease to the contralateral lung, the mediastinum, left neck, left pleural with associated malignant effusion, and within the liver. Did undergo navigational robotic bronchoscopy 12/17/2023 consistent with metastatic non-small cell lung cancer/pulmonary adenocarcinoma. Patient has been started on a combination of Keytruda/carboplatin/Alimta. Moderate to severe chronic obstructive pulmonary disease, with an FEV1 50% of predicted Chronic hypoxemic respiratory failure, secondary to a combination of above Right upper quadrant pain, likely secondary to hepatic metastases Thrombocytopenia Chronic back pain, recent MRI of the thoracic spine demonstrating compression deformity in the region of T12 without posterior wall displacement. Signal change suggest underlying pathological fracture/metastatic disease Former tobacco dependence, recently quit after her diagnosis of lung cancer And: The patient was seen and evaluated Imaging, labs and medications reviewed Continue the current treatment plan Titrate down the FiO2 as tolerated Overall prognosis is guarded We will continue to follow I have personally seen and examined the patient, performed the documentation and the assessment and plan as written. Number of minutes spent on the visit: 10.
--- NOTE | 2024-05-11 19:40 | P.PN ---
Subjective Progress Note Date: 05/11/24 Principal diagnosis: Acute hypoxic respiratory failure, diagnosis of non-small cell lung cancer In follow-up today patient continues to feel very short of breath even at rest, she is short of breath when she sleeps, she is still on 4 L and maintaining O2 saturations greater than 90%. She denies any hemoptysis, she does not notice any significant improvements in her breathing after respiratory treatment. She is mildly anxious. She is tolerating oral intake but states it is hard to eat when "you cannot breathe" Objective - Vital Signs Vital signs: Vital Signs Temp 98.0 F 05/11/24 08:20 Pulse 98 05/11/24 17:27 Resp 18 05/11/24 16:00 BP 116/72 05/11/24 16:00 Pulse Ox 96 05/11/24 16:00 FiO2 Intake & Output 05/11/24 05/11/24 05/12/24 06:59 18:59 06:59 Intake Total 240 358 Output Total 205 Balance 240 153 Weight 43.8 kg Intake: Oral 240 358 Output: Chest Tube Drainage 5 Pleural Catheter Left Mid 5 -Clavicular Chest Urine 200 Other: Voiding Method External Catheter External Catheter # Voids 1 - Constitutional General appearance: Present: average body habitus, cooperative, mild distress - EENT EENT Comment(s): Reddened oral mucosa, no thrush present today on exam Eyes: Present: anicteric sclerae, EOMI ENT: Present: hearing grossly normal - Respiratory Details: Left lung is very tight, poor air entry, bilateral expiratory wheezes. Pain with palpation to the right ribs lateral to the breast, inferior to the axilla, no palpable deformity, retractions are felt - Cardiovascular Details: Increased heart rate, no gallop - Peripheral edema leg Peripheral Edema: bilateral: None - Gastrointestinal General gastrointestinal: Present: normal bowel sounds, soft - Neurologic Neurologic: Present: CNII-XII intact (Grossly) - Musculoskeletal Musculoskeletal: Present: strength equal bilaterally - Psychiatric Psychiatric: Present: A&O x's 3, appropriate affect, intact judgment & insight - Labs CBC & Chem 7: 05/11/24 07:15 05/11/24 07:15 Labs: Abnormal Lab Results - Last 24 Hours (Table) 05/10/24 05/11/24 05/11/24 Range/Units 20:56 05:50 07:15 RBC (3.80-5.40) m/uL Hgb (11.4-16.0) gm/dL Hct (34.0-46.0) % RDW (11.5-15.5) % Plt Count (150-450) k/uL Lymphocytes # (1.0-4.8) k/uL Sodium 130 L (137-145) mmol/L BUN 18 H (7-17) mg/dL Creatinine 0.28 L (0.52-1.04) mg/dL Glucose 201 H (74-99) mg/dL POC Glucose (mg/dL) 235 H 177 H (70-110) mg/dL Transferrin 172.0 L (204.0-354.0) mg/dL Ferritin 1428.0 H (10.0-291.0) ng/mL Total Protein 5.8 L (6.3-8.2) g/dL Albumin 3.3 L (3.5-5.0) g/dL 05/11/24 05/11/24 05/11/24 Range/Units 07:15 11:29 16:57 RBC 2.52 L (3.80-5.40) m/uL Hgb 8.1 L (11.4-16.0) gm/dL Hct 25.2 L (34.0-46.0) % RDW 18.9 H (11.5-15.5) % Plt Count 111 L (150-450) k/uL Lymphocytes # 0.7 L (1.0-4.8) k/uL Sodium (137-145) mmol/L BUN (7-17) mg/dL Creatinine (0.52-1.04) mg/dL Glucose (74-99) mg/dL POC Glucose (mg/dL) 158 H 191 H (70-110) mg/dL Transferrin (204.0-354.0) mg/dL Ferritin (10.0-291.0) ng/mL Total Protein (6.3-8.2) g/dL Albumin (3.5-5.0) g/dL - Imaging and Cardiology CT scan - chest: report reviewed Assessment and Plan (1) Pain Current Visit: Yes Status: Acute Priority: High Code(s): R52 - PAIN, UNSPECIFIED SNOMED Code(s): 08023349 (2) Adenocarcinoma of lung, stage 4 Current Visit: Yes Status: Acute Priority: High Code(s): C34.90 - MALIGNANT NEOPLASM OF UNSP PART OF UNSP BRONCHUS OR LUNG SNOMED Code(s): 617786136 (3) Hypoxia Current Visit: Yes Status: Acute Priority: High Code(s): R09.02 - HYPOXEMIA SNOMED Code(s): 159421567 (4) Thrush, oral Current Visit: Yes Status: Acute Priority: Medium Code(s): B37.0 - CANDIDAL STOMATITIS SNOMED Code(s): 62084086 Plan: Pain, rt ribs/back -Patient reporting pain in the right ribs, radiating to the back, hurts with deep inspiration. This is of new onset. -CTA negative for PE -Orthopedics consulted for evaluation and recommendations -Cont titration of pain medications for pain mgmt Non-small cell lung cancer, metastatic -Status post 4 cycles of carbo/Alimta/Keytruda. -After 3 cycles patient had a significant response on imaging in the masses and lymphadenopathy, she did however, have some malignant cells on cytology from pleural effusion as well as a new compression fracture/?pathological fracture in the thoracic spine. It was not felt that this represented definite disease progression. Possibly it represented areas of pre-existing disease with physiological and/or posttreatment changes. Plan is to continue with cycles 4 and 5 then reimage. -Patient has been tolerating treatment overall well, no significant side effects. -Previously stated in consultation no hematological toxicities but, on chart review from the office, patient's hemoglobin is noted to be down approximately 4 g from her baseline. Will inquire about a unit as pt is symptomatic Chemotherapy-induced bicytopenia -WBC is normal at 5.8, hemoglobin 8.1, platelets 111,000. No GCSF needed at this time -Last treatment was 11 days ago. Patient is in julee currently. -Hgb is noted to be lower then previous when she has been in julee. Anemia work up ordered-no deficiencies noted Hypoxia -She has a left Pleurx drain, last drained a few days ago. -Pulmonary consulted for hypoxia. They have started pt on steroids, cont resp treatments -Resp treatments ordered -Pt O2 needs are not significantly changed at 4L -On IO, TSH normal, T3 pending Thrush -Oral nystatin ordered for treatment of thrush-oral mucosa improved today
[2024-05-11 20:06] LABS: Glucose,Whole Blood 307 mg/dL (70-110)
[2024-05-11] MEDS: BACLOFEN 10 MG TAB PO PRN (22:11)
[2024-05-12 03:52] VITALS: TEMP 97.8
[2024-05-12 06:06] LABS: Glucose,Whole Blood 142 mg/dL (70-110)
[2024-05-12] MEDS: ALTEPLASE 2 MG VIAL (CATHFLO) IV STA (09:04)
[2024-05-12 09:24] LABS: ALT 53 U/L (4-34); AST 71 U/L (14-36); African American GFR (CKD) >90 (>60 ml/min/1.73 sqM); Albumin 3.2 g/dL (3.5-5.0); Alkaline Phosphatase 111 U/L (38-126); Anion Gap 3 mmol/L; Blood Urea Nitrogen 18 mg/dL (7-17); Carbon Dioxide 32 mmol/L (22-30); Chloride 102 mmol/L (98-107); Glucose 155 mg/dL (74-99); Non-African American GFR(CKD) >90 (>60 ml/min/1.73 sqM); Phosphorus 2.6 mg/dL (2.5-4.5); Potassium 4.8 mmol/L (3.5-5.1); Sodium 137 mmol/L (137-145); Total Bilirubin 0.2 mg/dL (0.2-1.3); Total Protein 5.8 g/dL (6.3-8.2)
[2024-05-12 09:32] LABS: Anisocytosis Slight; Basophils % (A) 0 %; Eosinophils % (A) 0 %; HCT 25.1 % (34.0-46.0); HGB 8.4 gm/dL (11.4-16.0); Hypochromasia Slight; Lymphocytes # (A) 0.7 k/uL (1.0-4.8); Lymphocytes % (A) 12 %; MCH 32.9 pg (25.0-35.0); MCHC 33.3 g/dL (31.0-37.0); MCV 98.7 fL (80.0-100.0); Macrocytosis Moderate; Mean Platelet Volume 8.8; Monocytes # (A) 0.4 k/uL (0-1.0); Monocytes % (A) 6 %; Neutrophils # (A) 4.6 k/uL (1.3-7.7); Neutrophils % (A) 80 %; Platelet Count 134 k/uL (150-450); RBC 2.55 m/uL (3.80-5.40); RDW 19.1 % (11.5-15.5); WBC 5.8 k/uL (3.8-10.6)
--- NOTE | 2024-05-12 10:23 | P.PN ---
Progress Note - Text Progress Note Date: 05/12/24 Patient seen and examined with Dr. Dickey. Left pleurx cath was placed early April 2024. Last couple of drainages were minimal with concern for occlusion in the catheter. We instilled cath-tata which went in easily, allowed to dwell for 20 min, then hooked up pleurx to drainage bottle. 50 mL thin yellow drainage was removed without difficulty. Sterile dressing reapplied. Nursing may continue to drain while hospitalized twice per week and as needed. When discharged family can take over drainage as they were before. Dr. Dickey reviewed patient's CT scan and CXR. Patient may follow up in the office for pleurx removal when ready. No need for continued cardiothoracic intervention this admission.
[2024-05-12 11:24] LABS: Glucose,Whole Blood 192 mg/dL (70-110)
[2024-05-12 12:57] VITALS: BMI 16.9
--- NOTE | 2024-05-12 14:29 | P.DS ---
Providers Date of admission: 05/09/24 21:36 Expected date of discharge: 05/12/24 Attending physician: Vivi Lucio MD Consults: 05/09/24 21:29 Consult Physician Urgent Consulting Provider: Abdulkadir Kathleen Consult Reason/Comments: lung ca, hypoxic resp failure Do you want consulting provider notified?: Yes 05/09/24 21:39 Consult Physician Urgent Consulting Provider: Renan Boyd Consult Reason/Comments: lung ca Do you want consulting provider notified?: Yes 05/11/24 12:05 Consult Physician Routine Consulting Provider: Mani Roberson Consult Reason/Comments: compression T12 Do you want consulting provider notified?: Yes 05/11/24 16:41 Consult Physician Urgent Consulting Provider: Triston Dickey Consult Reason/Comments: Pleurx catheter not draining- placed about 1 month ago- pt draining at home Do you want consulting provider notified?: Yes [facility] Course: Discharge diagnoses: Acute on chronic hypoxemic respiratory failure, secondary to acute COPD exacerbation, advanced pulmonary adenocarcinoma and recurrent left-sided pleural effusion Stage IV metastatic lung adenocarcinoma Cachexia and failure to thrive, secondary to stage IV adenocarcinoma Chronic back pain Hyponatremia Normocytic Anemia, secondary to acute illness Thrombocytopenia likely secondary to acute illness Type 2 diabetes, A1c 6.5 Hospital course: Patient is a 68-year-old female with past medical history of stage IV lung adenocarcinoma on chemotherapy with carboplatin, Keytruda and Alimta, COPD with chronic hypoxic respiratory failure on home oxygen 4.5L, recurrent malignant left-sided pleural effusions, status post Pleurx catheter placement and left toe amputation who came to the ED on 05/09/24 with the complaint of shortness of breath. Patient admits to experiencing increased work of breathing with O2 saturation 89%. She was last admitted on April 13 for the same reason of COPD exacerbation and was decompensated, was in the ICU, got better and discharged on April 20. She has a Pleurx catheter which is drained every 2 to 3 days, last drained 50ml 2 days ago. She denies fever, night sweats, loss of consciousness, chest pain, orthopnea, PND or peripheral edema. Vitals on admission At that point she was temperature 98.6, pulse 118, respiratory 22, BP 127/65, O2 97% with 4 L of oxygen via nasal cannula. Chest Xray showed left thoracotomy without appreciable pneumothorax. Hazy left lung possibly due to pleural effusion, consolidation, and/or air space disease, improved from last CXR on 04/15. EKG revealed sinus tachycardia at 101 bpm with Left axis deviation with voltage criteria for LVH with T-wave inversions in leads III and aVF with poor R-wave progression. Laboratory significant for WBC count 4.1, hemoglobin 11.0, platelet count 125, sodium 135, BUN 15, creatinine 0.24, glucose 140 lactic acid 1.1, troponin less than 0.012, and proBNP 99. At this point she was admitted for further workup of shortness of breath. She was started on Symbicort inhaler, IV Solu-Medrol, DuoNeb and supplemental oxygen 5 L via nasal cannula. Chest CT was done that showed no evidence of pulmonary embolism, pulmonary vascular congestion within the left lung, trace left hydropneumothorax, left lower lung airspace opacity superimposed on small to moderate left pleural effusion and atelectasis, sclerotic focus within the manubrium requiring follow-up PET/CT to rule out metastatic lesion. She also has a compression fracture deformity of T12 vertebra with 25% height loss and Ortho was consulted who have advised her to wear a spinomed TLSO brace. Pro-Armando was ordered which came back 0.18. She was put on insulin sliding scale and glucose is 192. She was put on Ensure 3 times daily for cachexia and failure to thrive. She was also started on normal saline 50 cc/h because of hypovolemic hyponatremia secondary to dehydration. Repeat sodium was 137 today. Normocytic anemia and thrombocytopenia secondary to acute illness. Iron studies were ordered that show iron 69, TIBC 241, percent saturation 20.63, transferrin 172, ferritin 1428 which shows anemia of chronic disease and acute illness. Hemoglobin today is 8.4 and platelet count 134. Today her IV Solu-Medrol has been discontinued and she has been put on oral prednisone 40 mg for 2 days, nystatin oral suspension for oral thrush for 5 days. Today the patient is on 4 L of oxygen via nasal cannula, feels a lot better and pulmonology said optimized for discharge home. She will be discharged home with health services. She has been given handouts on lung cancer, COPD and palliative care. She has been enc ouraged to increase oral intake. She is on zolpidem as well as lorazepam and we would advise her to address that with her PCP. She is advised to follow-up with PCP in 1 to 2 days, oncology on 05/23/2024 and Ortho in 3 weeks. Patient seen at bedside today and is feeling good and excited about discharge. Vital signs are reviewed and stable General: appears cachectic Derm: warm, dry, intact Head: atraumatic, normocephalic, symmetric Eyes: EOMI, no lid lag, anicteric sclera Mouth: no lip lesion, mucus membranes moist Cardiovascular: S1 S2 reg, no murmur, rubs, or gallops Lungs: scattered expiratory wheezes, no rales, no accessory muscle use Abdominal: tender to palpation in RUQ and back, soft, no appreciable organomegaly Extremities: no edema, no contractures Neuro: Alert, Oriented, CNII-XII grossly intact, gait normal Psych: well appearing, appropriate affect A total of 33 minutes of time were spent preparing this complex discharge summary. Patient was discharged on 05/12/2024 at 12: 36. I have seen and evaluated the patient today. Discussed with the resident and agree with the residents finding and plan as documented in the resident's note. Changes highlighted in blue font. Patient Condition at Discharge: Stable Plan - Discharge Summary Discharge Rx Participant: No New Discharge Prescriptions: New predniSONE [Deltasone] 40 mg PO DAILY #4 tab Nystatin 100,000 Unit/ml Susp [Mycostatin Oral Susp] 500,000 unit PO QID #100 ml Continue HYDROcodone/APAP 10-325MG [[place] 10-325] 1.5 tab PO Q4H PRN PRN Reason: Pain Fluticasone Propion/Salmeterol [Advair Hfa 230-21 Mcg Inhaler] 2 puff INHALATION RT-BID Baclofen 10 - 20 mg PO TID PRN PRN Reason: Muscle Spasm Zolpidem [Ambien] 10 mg PO HS LORazepam [Ativan] 0.5 mg PO BID Folic Acid 1 mg PO DAILY Pembrolizumab [Keytruda] 200 mg IV Q21D Discharge Medication List HYDROcodone/APAP 10-325MG [[place] 10-325] 1.5 tab PO Q4H PRN 07/12/18 [History] Folic Acid 1 mg PO DAILY 03/09/24 [History] Pembrolizumab [Keytruda] 200 mg IV Q21D 03/09/24 [History] Baclofen 10 - 20 mg PO TID PRN 04/13/24 [History] Fluticasone Propion/Salmeterol [Advair Hfa 230-21 Mcg Inhaler] 2 puff INHALATION RT-BID 04/13/24 [History] LORazepam [Ativan] 0.5 mg PO BID 05/09/24 [History] Zolpidem [Ambien] 10 mg PO HS 05/09/24 [History] Nystatin 100,000 Unit/ml Susp [Mycostatin Oral Susp] 500,000 unit PO QID #100 ml 05/12/24 [Rx] predniSONE [Deltasone] 40 mg PO DAILY #4 tab 05/12/24 [Rx] Follow up Appointment(s)/Referral(s): Jihan Samuels NPC [Nurse Practitioner] - 05/23/24 10:15 am (This appt is at office located [address] [facility], behind [facility] Chemo is sched for 05/20 but, this will likely be on hold. ) Marcellus Webster, VALERIA [PHYSICIAN TOP STOP ATTACHER] - 05/31/24 9:30 am (Patient may follow-up with Marcellus Webster PA-C or Dr. Oscar Roberson at [facility] in 2-3 weeks following discharge. ) [facility] [NON-STAFF] - Prosper Lamar DO [Primary Care Provider] - 1-2 days Patient Instructions/Handouts: Lung Cancer (DC), COPD (Chronic Obstructive Pulmonary Disease) (DC), Palliative Care (DC) Activity/Diet/Wound Care/Special Instructions: 1. Patient may wear TLSO brace for comfort and support while sitting upright at greater than 45, while working with therapy, and while ambulating; patient does not have to wear the brace while lying in bed or bathing 2. Patient should avoid excessive bending, twisting, and lifting; no lifting greater than 10 pounds Please see your PCP and oncology. Please talk to your PCP about palliative care. Discharge Disposition: HOME WITH HOME HEALTH SERVICES
--- NOTE | 2024-05-12 15:18 | P.PN ---
Subjective Progress Note Date: 05/12/24 Principal diagnosis: Acute on chronic hypoxic respiratory failure, multifactorial Patient is a 68-year-old white female with past medical history significant for COPD, previous tobacco dependence, and recent diagnosis of metastatic non-small cell lung cancer. Her primary care provider is Dr. Prosper Lamar. In October, she was having issues with a chronic cough. She was a chronic smoker and has a component of moderate COPD. She had a follow-up chest CT with some abnormal findings, a left perihilar mass measuring 7.5 x 3.2 cm. Follow-up PET scan was compatible with primary left upper lung malignancy with metastatic disease to the contralateral lung, the mediastinum, left neck, left pleura with associated malignant effusion, and within the liver. A navigational robotic bronchoscopy performed on 12/17/2023. The biopsy of the left upper lobe mass was consistent with non-small cell lung cancer, pulmonary adenocarcinoma. As well as, the right upper lobe pulmonary nodule, also consistent with adenocarcinoma. Endobronchial ultrasound biopsy of the subcarinal station 7 lymph node was positive for non-small cell lung cancer. She is now established with oncology, her oncologist is Dr. Boyd. She was started on a combination of carboplatin/Alimta/Keytruda. I believe she has underwent 3 cycles so far. Note that the patient had a recent hospitalization at the beginning of April, for a recurrent malignant pleural effusion. She did undergo Pleurx catheter insertion on April 13. She has been draining her pleural X catheter every 2 to 3 days, most recently only 50 cc of drainage. No change in drainage consistency or color. She returns to the emergency department with worsening shortness of breath late last night. Chest x-ray showing left Pleurx catheter in place, without appreciable pneumothorax. There is haziness in the left lung, mildly improved s mana previous image. Likely representing a component of residual pleural effusion. Consolidation and/or airspace disease is not completely excluded. CBC: WBC count 4.1, hemoglobin 11, hematocrit 32.9, platelets 125,000. CMP: Sodium 135, potassium 3.9, chloride 102, serum bicarb 23, BUN 15, creatinine 0.24, glucose 140. Lactic 1.5. LFTs unremarkable. Troponin less than 0.012. NT proBNP low. Patient is currently sitting up in bed, on 5 L/min nasal cannula, in no acute respiratory distress. Her SpO2 is 98%. She does wear home oxygen. She states that her shortness of breath has been progressively worsening. She continues to drain her Pleurx catheter every 2 to 3 days, only 50 mL of drainage was removed last. No significant purulence or change in color. Denies sick contacts. She denies any change in her chronic cough. Occasional yellow sputum production. No hemoptysis. No fevers. No chest pain. Her appetite has been poor. Reporting worsening generalized weakness. Hemody namics are stable. The patient is seen today May 11, 2024 in follow-up on the selective care unit. She is currently sitting up in bed. Awake and alert in no acute distress. She is still dyspneic with minimal exertion. Dyspneic with conversation. She is maintaining O2 saturations in the 90s on 4 L/min per nasal cannula. Afebrile. Hemodynamically stable. CT angiogram revealed no evidence of pulmonary embolism. There is pulmonary vascular congestion within the left lung. Trace left hydropneumothorax. White count 5.8. Hemoglobin 8.1. Platelets 111. Sodium 130. Potassium 4.4. Bicarb 28. BUN 18. Creatinine 0.28. Glucose 201. She remains on DuoNeb inhalations, Symbicort, Solu-Medrol. Lovenox for DVT prophylaxis. Patient was seen today on 05/12/2024, basically about the same, she is extremely frail, she has advanced bronchogenic carcinoma, patient did not have much drainage from her left Pleurx catheter, significant airway disease noted in the left lung, most likely related to her underlying malignancy. I believe the patient should be considered for home discharge, and possibly even consider hospice Objective - Vital Signs Vital signs: Vital Signs Temp 97.8 F 05/12/24 03:51 Pulse 100 05/12/24 11:38 Resp 20 05/12/24 08:00 BP 115/58 05/12/24 03:51 Pulse Ox 96 05/12/24 08:00 FiO2 Intake & Output 05/11/24 05/12/24 05/12/24 18:59 06:59 18:59 Intake Total 358 Output Total 205 200 0 Balance 153 -200 0 Weight 44.9 kg 44.9 kg Intake: Oral 358 Output: Chest Tube Drainage 5 Pleural Catheter Left Mid 5 -Clavicular Chest Urine 200 200 0 Other: Voiding Method External Catheter External Catheter External Catheter - Exam GENERAL EXAM: Alert, 68-year-old female, frail and cachectic, 4 L nasal cannula, O2 sat is 96% HEAD: Normocephalic and atraumatic EYES: Normal reaction of pupils, equal size. NOSE: Clear with pink turbinates. THROAT: No erythema or exudates. NECK: No masses, no JVD. CHEST: No chest wall deformity. Left Pleurx catheter insertion site clean and dry. LUNGS: Equal air entry close and diminished breath sounds on the left side CVS: S1 and S2 normal with no audible murmur, regular rhythm. No extra heart sounds ABDOMEN: No hepatosplenomegaly, active bowel sounds, no guarding or rigidity. SKIN: No rashes CENTRAL NERVOUS SYSTEM: No focal deficits, tone is normal in all 4 extremities. EXTREMITIES: There is no peripheral edema, clubbing, or cyanosis. Peripheral pulses are intact. - Labs CBC & Chem 7: 05/12/24 08:51 05/12/24 08:51 Labs: Abnormal Lab Results - Last 24 Hours (Table) 05/11/24 05/11/24 05/11/24 Range/Units 07:15 07:15 16:00 RBC (3.80-5.40) m/uL Hgb (11.4-16.0) gm/dL Hct (34.0-46.0) % RDW (11.5-15.5) % Plt Count (150-450) k/uL Lymphocytes # (1.0-4.8) k/uL Carbon Dioxide (22-30) mmol/L BUN (7-17) mg/dL Creatinine (0.52-1.04) mg/dL Glucose (74-99) mg/dL POC Glucose (mg/dL) (70-110) mg/dL Osmolality 298 H (275-295) mOsm/kg Transferrin 172.0 L (204.0-354.0) mg/dL Ferritin 1428.0 H (10.0-291.0) ng/mL AST (14-36) U/L ALT (4-34) U/L Total Protein (6.3-8.2) g/dL Albumin (3.5-5.0) g/dL Ur Random Sodium <20 L (40-220) mmol/L 05/11/24 05/11/2405/12/24 Range/Units 16:57 20:03 06:05 RBC (3.80-5.40) m/uL Hgb (11.4-16.0) gm/dL Hct (34.0-46.0) % RDW (11.5-15.5) % Plt Count (150-450) k/uL Lymphocytes # (1.0-4.8) k/uL Carbon Dioxide (22-30) mmol/L BUN (7-17) mg/dL Creatinine (0.52-1.04) mg/dL Glucose (74-99) mg/dL POC Glucose (mg/dL) 191 H 307 H 142 H (70-110) mg/dL Osmolality (275-295) mOsm/kg Transferrin (204.0-354.0) mg/dL Ferritin (10.0-291.0) ng/mL AST (14-36) U/L ALT (4-34) U/L Total Protein (6.3-8.2) g/dL Albumin (3.5-5.0) g/dL Ur Random Sodium (40-220) mmol/L 05/12/24 05/12/24 05/12/24 Range/Units 08:51 08:51 11:19 RBC 2.55 L (3.80-5.40) m/uL Hgb 8.4 L (11.4-16.0) gm/dL Hct 25.1 L (34.0-46.0) % RDW 19.1 H (11.5-15.5) % Plt Count 134 L (150-450) k/uL Lymphocytes # 0.7 L (1.0-4.8) k/uL Carbon Dioxide 32 H (22-30) mmol/L BUN 18 H (7-17) mg/dL Creatinine 0.44 L (0.52-1.04) mg/dL Glucose 155 H (74-99) mg/dL POC Glucose (mg/dL) 192 H (70-110) mg/dL Osmolality (275-295) mOsm/kg Transferrin (204.0-354.0) mg/dL Ferritin (10.0-291.0) ng/mL AST 71 H (14-36) U/L ALT 53 H (4-34) U/L Total Protein 5.8 L (6.3-8.2) g/dL Albumin 3.2 L (3.5-5.0) g/dL Ur Random Sodium (40-220) mmol/L Assessment and Plan Assessment: Impression: Acute on chronic hypoxemic respiratory failure, likely multifactorial, secondary to acute COPD exacerbation, advanced pulmonary adenocarcinoma, and recurrent left-sided pleural effusion. C Recurrent left-sided pleural effusion, malignant, cytology positive for rare metastatic cells, status post left-sided Pleurx catheter 04/13/24 Stage IV metastatic lung adenocarcinoma, patient found to have a left 7.5 x 3.2 cm left perihilar mass back in October,. Follow-up PET scan was compatible with primary left upper lung malignancy with metastatic disease to the contralateral lung, the mediastinum, left neck, left pleural with associated malignant effusion, and within the liver. Did undergo navigational robotic bronchoscopy 12/17/2023 consistent with metastatic non-small cell lung cancer/pulmonary adenocarcinoma. Patient has been started on a combination of Keytruda/carboplatin/Alimta. Moderate to severe chronic obstructive pulmonary disease, with an FEV1 50% of predicted Chronic hypoxemic respiratory failure, secondary to a combination of above Right upper quadrant pain, likely secondary to hepatic metastases Thrombocytopenia Chronic back pain, recent MRI of the thoracic spine demonstrating compression deformity in the region of T12 without posterior wall displacement. Signal change suggest underlying pathological fracture/metastatic disease Former tobacco dependence, recently quit after her diagnosis of lung cancer Recommendation: Continue present supportive care measures Continue present medications Consider discharge planning even consider hospice. Overall prognosis seems to be very poor Discussed with the patient her overall condition, and I strongly recommended that she receives the same treatment she is receiving here at the hospital could be given at home including pain meds. Time with Patient: Less than 30
[2024-05-12 15:23] VITALS: RESP 22
[2024-05-12 16:53] LABS: Glucose,Whole Blood 151 mg/dL (70-110)
--- NOTE | 2024-05-12 18:02 | CT ---
EXAMINATION TYPE: CT brain wo con CT DLP: 1156.4 mGycm, Automated exposure control for dose reduction was used. DATE OF EXAM: 05/12/2024 5:54 PM COMPARISON: . CLINICAL INDICATION:Female, 68 years old with history of fall, weakness, ams TECHNIQUE: Brain: Axial CT images of the brain were obtained with coronal and sagittal reformats created and rev iewed. Contrast used: None. Oral contrast used: None. FINDINGS: Brain: Extra-axial spaces: No abnormal extra-axial fluid collections. Ventricular system: Within normal limits Cerebral parenchyma: No acute intraparenchymal hemorrhage or mass effect. The millan-white junction is well differentiated. Cerebellum: Unremarkable. Mass effect: No evidence of midline shift. Intracranial vasculature: unremarkable Soft tissues: Normal. Calvarium/osseous structures: No depressed skull fracture. Paranasal sinuses and mastoid air cells: Mild scattered paranasal sinus disease. Visualized orbits: Orbital contents are intact. IMPRESSION: No acute intracranial process.
[2024-05-12 18:21] VITALS: BP 193/82; PULSE 110
--- NOTE | 2024-05-12 21:03 | P.PN ---
Subjective Progress Note Date: 05/12/24 Principal diagnosis: Acute hypoxic respiratory failure, diagnosis of non-small cell lung cancer In follow-up today patient is very groggy from recent pain medication injection. She has same c/o-short of breath even at rest-states she does not feel any better since admission. Objective - Vital Signs Vital signs: Vital Signs Temp 97.8 F 05/12/24 03:51 Pulse 100 05/12/24 11:38 Resp 20 05/12/24 08:00 BP 115/58 05/12/24 03:51 Pulse Ox 96 05/12/24 08:00 FiO2 Intake & Output 05/11/24 05/12/24 05/12/24 18:59 06:59 18:59 Intake Total 358 Output Total 205 200 0 Balance 153 -200 0 Weight 44.9 kg 44.9 kg Intake: Oral 358 Output: Chest Tube Drainage 5 Pleural Catheter Left Mid 5 -Clavicular Chest Urine 200 200 0 Other: Voiding Method External Catheter External Catheter External Catheter - Constitutional Constitutional Comment(s): falls asleep during conversation General appearance: Present: average body habitus, disheveled, no acute distress - EENT Eyes: Present: EOMI ENT: Present: hearing grossly normal - Respiratory Respiratory: bilateral: diminished (no adventitionus breath sounds) - Cardiovascular Rhythm: regular Abnormal Heart Sounds: Absent: systolic murmur, diastolic murmur, rub, S3 Gallop, S4 Gallop, click, other - Peripheral edema leg Peripheral Edema: bilateral: None - Gastrointestinal General gastrointestinal: Present: soft - Musculoskeletal Musculoskeletal: Present: strength equal bilaterally - Psychiatric Psychiatric Comment(s): Drowsy, falls asleep after I have asked a question - Labs CBC & Chem 7: 05/12/24 08:51 05/12/24 08:51 Labs: Abnormal Lab Results - Last 24 Hours (Table) 05/11/24 05/11/24 05/11/24 Range/Units 07:15 07:15 16:00 RBC (3.80-5.40) m/uL Hgb (11.4-16.0) gm/dL Hct (34.0-46.0) % RDW (11.5-15.5) % Plt Count (150-450) k/uL Lymphocytes # (1.0-4.8) k/uL Carbon Dioxide (22-30) mmol/L BUN (7-17) mg/dL Creatinine (0.52-1.04) mg/dL Glucose (74-99) mg/dL POC Glucose (mg/dL) (70-110) mg/dL Osmolality 298 H (275-295) mOsm/kg Transferrin 172.0 L (204.0-354.0) mg/dL Ferritin 1428.0 H (10.0-291.0) ng/mL AST (14-36) U/L ALT (4-34) U/L Total Protein (6.3-8.2) g/dL Albumin (3.5-5.0) g/dL Ur Random Sodium <20 L (40-220) mmol/L 05/11/24 05/11/24 05/12/24 Range/Units 16:57 20:03 06:05 RBC (3.80-5.40) m/uL Hgb (11.4-16.0) gm/dL Hct (34.0-46.0) % RDW (11.5-15.5) % Plt Count (150-450) k/uL Lymphocytes # (1.0-4.8) k/uL Carbon Dioxide (22-30) mmol/L BUN (7-17) mg/dL Creatinine (0.52-1.04) mg/dL Glucose (74-99) mg/dL POC Glucose (mg/dL) 191 H 307 H 142 H (70-110) mg/dL Osmolality (275-295) mOsm/kg Transferrin (204.0-354.0) mg/dL Ferritin (10.0-291.0) ng/mL AST (14-36) U/L ALT (4-34) U/L Total Protein (6.3-8.2) g/dL Albumin (3.5-5.0) g/dL Ur Random Sodium (40-220) mmol/L 05/12/24 05/12/24 05/12/24 Range/Units 08:51 08:51 11:19 RBC 2.55 L (3.80-5.40) m/uL Hgb 8.4 L (11.4-16.0) gm/dL Hct 25.1 L (34.0-46.0) % RDW 19.1 H (11.5-15.5) % Plt Count 134 L (150-450) k/uL Lymphocytes # 0.7 L (1.0-4.8) k/uL Carbon Dioxide 32 H (22-30) mmol/L BUN 18 H (7-17) mg/dL Creatinine 0.44 L (0.52-1.04) mg/dL Glucose 155 H (74-99) mg/dL POC Glucose (mg/dL) 192 H (70-110) mg/dL Osmolality (275-295) mOsm/kg Transferrin (204.0-354.0) mg/dL Ferritin (10.0-291.0) ng/mL AST 71 H (14-36) U/L ALT 53 H (4-34) U/L Total Protein 5.8 L (6.3-8.2) g/dL Albumin 3.2 L (3.5-5.0) g/dL Ur Random Sodium (40-220) mmol/L Assessment and Plan (1) Pain Status: Acute Priority: High Code(s): R52 - PAIN, UNSPECIFIED SNOMED Code(s): 24601263 (2) Adenocarcinoma of lung, stage 4 Status: Acute Priority: High Code(s): C34.90 - MALIGNANT NEOPLASM OF UNSP PART OF UNSP BRONCHUS OR LUNG SNOMED Code(s): 128957832 (3) Hypoxia Status: Acute Priority: High Code(s): R09.02 - HYPOXEMIA SNOMED Code(s): 490104677 (4) Thrush, oral Status: Acute Priority: Medium Code(s): B37.0 - CANDIDAL STOMATITIS SNOMED Code(s): 07131471 Plan: Pain, rt ribs/back -Patient reporting pain in the right ribs, radiating to the back, hurts with deep inspiration. This is of new onset. She is using pain meds for the same. -CTA negative for PE -Cont titration of pain medications for pain mgmt Non-small cell lung cancer, metastatic -Status post 4 cycles of carbo/Alimta/Keytruda. -After 3 cycles patient had a significant response on imaging in the masses and lymphadenopathy, she did however, have some malignant cells on cytology from pleural effusion as well as a new compression fracture/?pathological fracture in the thoracic spine. It was not felt that this represented definite disease progression. Possibly it represented areas of pre-existing disease with physi ological and/or posttreatment changes. Plan is to continue with cycles 4 and 5 then reimage. -Patient has been tolerating treatment overall well, no significant side effects. -Previously stated in consultation no hematological toxicities but, on chart review from the office, patient's hemoglobin is noted to be down approximately 4 g from her baseline. Not certain if this is what is causing her to be so SOB. Her Hgb is recovering post chemo. Will see her in office short term and see how she is doing Chemotherapy-induced bicytopenia -WBC is normal at 5.8, hemoglobin 8.4, platelets 134,000. -Last treatment was 11 days ago. Patient is recovering from julee currently. -Hgb is noted to be lower then previous when she has been in julee. Anemia work up ordered-no deficiencies noted. Having office contact her next week to check on her and if still symptomatic, will havev her come in for lab draw Hypoxia -She has a left Pleurx drain -Pulmonary consulted for hypoxia. They have started pt on steroids, cont resp treatments -Resp treatments ordered -Pt O2 needs are not significantly changed at 4L -On IO, TSH normal, T3 normal Thrush -Oral nystatin ordered for treatment of thrush
== END 2024-05-12 20:43 | disposition home health service (06) | DRG 189 ==
LOC: EC 16:02 → 3SCARD 21:36
PROVIDERS: ADMIT Internal Medicine; ATTEND Internal Medicine
DX: J96.21 Acute and chronic respiratory failure with hypoxia (principal); J91.0 Malignant pleural effusion; J44.1 Chronic obstructive pulmonary disease with (acute) exacerbation; C34.12 Malignant neoplasm of upper lobe, left bronchus or lung; C78.7 Secondary malignant neoplasm of liver and intrahepatic bile duct; C77.1 Secondary and unspecified malignant neoplasm of intrathoracic lymph nodes; C78.1 Secondary malignant neoplasm of mediastinum; C78.2 Secondary malignant neoplasm of pleura; C79.51 Secondary malignant neoplasm of bone; C79.89 Secondary malignant neoplasm of other specified sites; Z68.1 Body mass index [BMI] 19.9 or less, adult; M84.58XA Pathological fracture in neoplastic disease, other specified site, initial encounter for fracture; E87.1 Hypo-osmolality and hyponatremia; L89.302 Pressure ulcer of unspecified buttock, stage 2; D63.0 Anemia in neoplastic disease; D64.81 Anemia due to antineoplastic chemotherapy; D69.59 Other secondary thrombocytopenia; E88.A Wasting disease (syndrome) due to underlying condition; G89.29 Other chronic pain; R62.7 Adult failure to thrive; Z99.81 Dependence on supplemental oxygen; T45.1X5A Adverse effect of antineoplastic and immunosuppressive drugs, initial encounter; Z87.891 Personal history of nicotine dependence; Z77.22 Contact with and (suspected) exposure to environmental tobacco smoke (acute) (chronic); Z79.52 Long term (current) use of systemic steroids; Z79.899 Other long term (current) drug therapy; Z28.310 Unvaccinated for COVID-19; Z71.3 Dietary counseling and surveillance; Z89.422 Acquired absence of other left toe(s)
CPT/HCPCS: 36415; 70450; 71046; 71275; 80048; 80053; 82607; 82728; 82746; 83036; 83540; 83550; 83605; 83735; 83880; 83921; 83930; 83935; 84100; 84145; 84300; 84443; 84480; 84484; 85025; 93005; 94640; 94760